=== PATIENT | male | born 1935 | race Caucasian/White ===

== ENCOUNTER 2018-11-29 08:45 | Emergency (ER) | payer MEDICARE, OTHER ==
[2018-11-29] MEDS ORDERED: HYDROcodone/APAP 7.5-325MG 1 EACH TAB PO ONE (09:29)
[2018-11-29] MEDS ORDERED: SODIUM CHLORIDE 0.9% 500 ML 500 ML IV ONE (09:29)
--- NOTE | 2018-11-29 09:46 | ED ---
General Adult HPI - General Chief complaint: Recheck/Abnormal Lab/Rx Stated complaint: RT FOOT AND LEFT ELBOW PAIN, POSS MED REACTION Time Seen by Provider: 11/29/18 09:15 Source: patient, RN notes reviewed Mode of arrival: wheelchair Limitations: no limitations - History of Present Illness Initial comments: This a 83-year-old male presents emergency Department chief complaint of left elbow, right foot pain. Patient states she's having worsening pain in his right for last couple days but states overnight he has severe sharp sudden onset of pain to his left elbow after extending it. Patient states that he cannot fully extend his left elbow now. Patient states it is swollen. Patient states is no swelling to the lateral portion of his right foot along with some mild redness. He hasn't home diagnoses of gout other suspicious of this. Patient denies any fevers or chills no headache no dizziness no chest pain or shortness of breath. - Related Data Home Medications Medication Instructions Recorded Confirmed Aspirin EC [Ecotrin Low Dose] 81 mg PO DAILY 11/29/18 11/29/18 Cholecalciferol [Vitamin D3] 1,000 unit PO DAILY 11/29/18 11/29/18 HYDROcodone/APAP 5-325MG [[place] 1 tab PO TID PRN 11/29/18 11/29/18 5-325] Hydrochlorothiazide [Hydrodiuril] 12.5 mg PO DAILY 11/29/18 11/29/18 Loratadine [Claritin] 10 mg PO DAILY 11/29/18 11/29/18 Previous Rx's Medication Instructions Recorded Indomethacin [Indocin] 50 mg PO TID #30 capsule 11/29/18 Allergies Allergy/AdvReac Type Severity Reaction Status Date / Time No Known Allergies Allergy Verified 11/29/18 09:57 Review of Systems ROS Statement: Those systems with pertinent positive or pertinent negative responses have been documented in the HPI. ROS Other: All systems not noted in ROS Statement are negative. Past Medical History Past Medical History: Hypertension Additional Past Medical History / Comment(s): Borderline type 2 diabetic History of Any Multi-Drug Resistant Organisms: None Reported Past Surgical History: Orthopedic Surgery Past Psychological History: No Psychological Hx Reported Smoking Status: Former smoker Past Alcohol Use History: Rare Past Drug Use History: None Reported General Exam Limitations: no limitations General appearance: alert, in no apparent distress Head exam: Present: atraumatic, normocephalic, normal inspection Eye exam: Present: normal appearance, PERRL, EOMI. Absent: scleral icterus, conjunctival injection, periorbital swelling ENT exam: Present: normal exam, normal oropharynx, mucous membranes moist Neck exam: Present: normal inspection. Absent: tenderness, meningismus, lymphadenopathy Respiratory exam: Present: normal lung sounds bilaterally. Absent: respiratory distress, wheezes, rales, rhonchi, stridor Cardiovascular Exam: Present: regular rate, normal rhythm, normal heart sounds. Absent: systolic murmur, diastolic murmur, rubs, gallop, clicks Extremities exam: Present: other (Foot there is mild erythema, tenderness with palpation the lateral portion, left elbow pain with range of motion limited range of motion neurovascular intact no erythema to the left) Skin exam: Present: warm, dry, intact, normal color. Absent: rash Course Vital Signs 11/29/18 09:02 Temperature 98.6 F Pulse Rate 75 Respiratory 16 Rate Blood Pressure 149/70 O2 Sat by Pulse 98 Oximetry Medical Decision Making - Medical Decision Making 83-year-old male presented for right foot pain, left elbow pain. Patient symptoms are consistent with gout. Patient's uric acid is elevated. Patient be given a dose of steroids and emergency Department discharge on indomethacin. Patient follow-up with PCP return parameters were discussed. - Lab Data Result diagrams: 11/29/18 10:15 11/29/18 10:15 Lab Results 11/29/18 11/29/18 Range/Units 10:15 10:15 WBC 10.2 (3.8-10.6) k/uL RBC 5.61 (4.30-5.90) m/uL Hgb 16.6 (13.0-17.5) gm/dL Hct 47.6 (39.0-53.0) % MCV 84.9 (80.0-100.0) fL MCH 29.5 (25.0-35.0) pg MCHC 34.8 (31.0-37.0) g/dL RDW 14.5 (11.5-15.5) % Plt Count 197 (150-450) k/uL Neutrophils % 83 % Lymphocytes % 9 % Monocytes % 6 % Eosinophils % 1 % Basophils % 0 % Neutrophils # 8.4 H (1.3-7.7) k/uL Lymphocytes # 0.9 L (1.0-4.8) k/uL Monocytes # 0.6 (0-1.0) k/uL Eosinophils # 0.1 (0-0.7) k/uL Basophils # 0.0 (0-0.2) k/uL Sodium 138 (137-145) mmol/L Potassium 4.1 (3.5-5.1) mmol/L Chloride 102 (98-107) mmol/L Carbon Dioxide 24 (22-30) mmol/L Anion Gap 12 mmol/L BUN 27 H (9-20) mg/dL Creatinine 1.18 (0.66-1.25) mg/dL Est GFR (CKD-EPI)AfAm 65 (>60 ml/min/1.73 sqM) Est GFR (CKD-EPI)NonAf 56 (>60 ml/min/1.73 sqM) Glucose 137 H (74-99) mg/dL Uric Acid 10.1 H (3.5-8.5) mg/dL Calcium 9.5 (8.4-10.2) mg/dL Total Bilirubin 1.4 H (0.2-1.3) mg/dL AST 26 (17-59) U/L ALT 28 (21-72) U/L Alkaline Phosphatase 137 H (38-126) U/L C-Reactive Protein 59.5 H (<10.0) mg/L Total Protein 7.6 (6.3-8.2) g/dL Albumin 4.3 (3.5-5.0) g/dL Disposition Clinical Impression: Gout Disposition: HOME SELF-CARE Condition: Stable Instructions (If sedation given, give patient instructions): Gout (ED), Low Purine Diet (ED) Additional Instructions: Please return to the Emergency Department if symptoms worsen or any other concerns. Prescriptions: Indomethacin [Indocin] 50 mg PO TID #30 capsule Is patient prescribed a controlled substance at d/c from ED?: No Referrals: [facility],Clinic [Primary Care Provider] - 1-2 days Time of Disposition: 11:18
[2018-11-29 10:32] LABS: Basophils % (A) 0 %; Eosinophils # (A) 0.1 k/uL (0-0.7); Eosinophils % (A) 1 %; HCT 47.6 % (39.0-53.0); HGB 16.6 gm/dL (13.0-17.5); Lymphocytes # (A) 0.9 k/uL (1.0-4.8); Lymphocytes % (A) 9 %; MCH 29.5 pg (25.0-35.0); MCHC 34.8 g/dL (31.0-37.0); MCV 84.9 fL (80.0-100.0); Mean Platelet Volume 7.1; Monocytes # (A) 0.6 k/uL (0-1.0); Monocytes % (A) 6 %; Neutrophils # (A) 8.4 k/uL (1.3-7.7); Neutrophils % (A) 83 %; Platelet Count 197 k/uL (150-450); RBC 5.61 m/uL (4.30-5.90); RDW 14.5 % (11.5-15.5); WBC 10.2 k/uL (3.8-10.6)
[2018-11-29 10:50] LABS: Albumin 4.3 g/dL (3.5-5.0); C Reactive Protein 59.5 mg/L (<10.0); Calcium 9.5 mg/dL (8.4-10.2); Potassium 4.1 mmol/L (3.5-5.1); Total Bilirubin 1.4 mg/dL (0.2-1.3); Total Protein 7.6 g/dL (6.3-8.2); Uric Acid 10.1 mg/dL (3.5-8.5)
--- NOTE | 2018-11-29 10:55 | XR ---
EXAMINATION TYPE: XR foot complete RT DATE OF EXAM: 11/29/2018 COMPARISON: NONE HISTORY: Pain TECHNIQUE: Three views are submitted. FINDINGS: The osseous structures are intact. Arthropathy of the first MTP joint. Hypertrophic spurring at the b ase of the fifth metatarsal. Large calcaneal spurs noted. Metallic clips seen within the soft tissues adjacent to the fibula correlate clinically. IMPRESSION: 1. No acute fracture or dislocation. If symptoms persist, follow-up exam in 7 to 10 days could be ob tained. 2. Arthropathy.
--- NOTE | 2018-11-29 10:56 | XR ---
EXAMINATION TYPE: XR elbow complete LT DATE OF EXAM: 11/29/2018 COMPARISON: NONE HISTORY: Pain FINDINGS: Three views of the elbow demonstrate a pathologic joint effusion. Displacement of anterior fat pad an d a posterior fat-pad both identified. Olecranon spur noted. No definite fracture line. Hypertrophic changes involving the joint space seen. IMPRESSION: 1. Pathologic joint effusion can be associated with occult fracture, inflammatory arthropathy, althou gh, infectious etiology not entirely excluded.
[2018-11-29] MEDS ORDERED: methylPREDNISolone SOD SUCCI 125 MG/2 ML VIAL IV STA ×2 (11:16→11:31)
[2018-11-29 12:32] VITALS: BP 126/61; PULSE 74; RESP 18; TEMP 97.6
== END 2018-11-29 12:17 | disposition home or self-care (01) ==
LOC: EC 08:45
DX: M10.9 Gout, unspecified (principal); I10 Essential (primary) hypertension; Z87.891 Personal history of nicotine dependence; Z79.82 Long term (current) use of aspirin; Z79.899 Other long term (current) drug therapy
CPT/HCPCS: 36415; 80053; 84550; 85025; 86140; 96374; 99283

== ENCOUNTER 2018-12-09 09:24 | Inpatient (IN) | payer MEDICARE ==
[2018-12-09] MEDS ORDERED: NITROGLYCERIN SL TABS 0.4 MG TAB SUBLINGUAL STA (09:29)
[2018-12-09] MEDS ORDERED: ATORVASTATIN 80 MG TAB PO STA (09:32)
[2018-12-09] MEDS ORDERED: NITROGLYCERIN OINT 1 INCH/GM PACKET TOPICAL STA (09:32)
[2018-12-09 09:42] LABS: Basophils % (A) 0 %; Eosinophils # (A) 0.2 k/uL (0-0.7); Eosinophils % (A) 2 %; HCT 49.5 % (39.0-53.0); HGB 16.2 gm/dL (13.0-17.5); Lymphocytes # (A) 1.6 k/uL (1.0-4.8); Lymphocytes % (A) 18 %; MCH 28.8 pg (25.0-35.0); MCHC 32.7 g/dL (31.0-37.0); MCV 88.2 fL (80.0-100.0); Mean Platelet Volume 6.8; Monocytes # (A) 0.4 k/uL (0-1.0); Monocytes % (A) 5 %; Neutrophils # (A) 6.2 k/uL (1.3-7.7); Neutrophils % (A) 73 %; Platelet Count 215 k/uL (150-450); RBC 5.61 m/uL (4.30-5.90); RDW 13.2 % (11.5-15.5); WBC 8.5 k/uL (3.8-10.6)
--- NOTE | 2018-12-09 09:50 | ED ---
Chest Pain HPI - General Chief Complaint: Shortness of Breath Stated Complaint: CHEST PAIN Time Seen by Provider: 12/09/18 09:24 Source: patient, EMS, RN notes reviewed Mode of arrival: EMS Limitations: no limitations - History of Present Illness Initial Comments: This is a 83-year-old male with a necessity benign past medical history no prior history of heart disease he is a former smoker who quit 20 years ago who states he had the onset about one half hours prior to calling EMS of throat pain he states was burning in nature severe nonradiating he did have some sweats with it he states no overt shortness of breath no dizziness palpitations fevers chills nausea vomiting or other symptoms. He did take 81 mg of aspirin initially. He was given 3 additional aspirin by paramedics in route. He states this is not changed at all. Initially he also did not complain of any chest pain en route. No other modifying factors. EKG was transmitted by EMS that show evidence of a left bundle branch block with some evidence of ST elevation in lead 3. MD Complaint: other - Related Data Home Medications Medication Instructions Recorded Confirmed Aspirin EC [Ecotrin Low Dose] 81 mg PO DAILY 11/29/18 11/29/18 Cholecalciferol [Vitamin D3] 1,000 unit PO DAILY 11/29/18 11/29/18 HYDROcodone/APAP 5-325MG [[place] 1 tab PO TID PRN 11/29/18 11/29/18 5-325] Hydrochlorothiazide [Hydrodiuril] 12.5 mg PO DAILY 11/29/18 11/29/18 Loratadine [Claritin] 10 mg PO DAILY 11/29/18 11/29/18 Previous Rx's Medication Instructions Recorded Indomethacin [Indocin] 50 mg PO TID #30 capsule 11/29/18 Allergies Allergy/AdvReac Type Severity Reaction Status Date / Time No Known Allergies Allergy Verified 11/29/18 09:57 Review of Systems ROS Statement: Those systems with pertinent positive or pertinent negative responses have been documented in the HPI. ROS Other: All systems not noted in ROS Statement are negative. EKG Findings - EKG Results: EKG: interpreted by RITA (EKG the time of admission showed a sinus rhythm of 81. Interval 180 QRS duration 148 QT since QTC 44/469 evidence of a left bundle- branch block pattern with some evidence of ST elevation in lead 3. This is compared with the EKG submitted by EMS which does correlate.) Past Medical History Past Medical History: Hypertension Additional Past Medical History / Comment(s): Borderline type 2 diabetic History of Any Multi-Drug Resistant Organisms: None Reported Past Surgical History: Orthopedic Surgery Past Psychological History: No Psychological Hx Reported Smoking Status: Former smoker Past Alcohol Use History: Rare Past Drug Use History: None Reported General Exam - General Exam Comments Initial Comments: This is a well-developed well-nourished awake alert oriented 3 male Limitations: no limitations General appearance: alert, anxious, in distress Head exam: Present: atraumatic, normocephalic, normal inspection Eye exam: Present: normal appearance, PERRL, EOMI. Absent: scleral icterus, conjunctival injection, periorbital swelling ENT exam: Present: normal exam, mucous membranes moist Neck exam: Present: normal inspection. Absent: tenderness, meningismus, lymphadenopathy Respiratory exam: Present: wheezes, decreased breath sounds (Decreased breath sounds with expiratory wheezes scattered throughout were noted). Absent: respiratory distress, rales, rhonchi, stridor Cardiovascular Exam: Present: regular rate, normal rhythm, normal heart sounds. Absent: systolic murmur, diastolic murmur, rubs, gallop, clicks GI/Abdominal exam: Present: soft, normal bowel sounds. Absent: distended, tenderness, guarding, rebound, rigid Extremities exam: Present: normal inspection, full ROM, normal capillary refill. Absent: tenderness, pedal edema, joint swelling, calf tenderness Back exam: Present: normal inspection Neurological exam: Present: alert, oriented X3, CN II-XII intact Psychiatric exam: Present: normal affect, anxious Skin exam: Present: warm, dry, intact, normal color. Absent: rash Course Vital Signs 12/09/18 12/09/18 09:29 09:40 Temperature 97.7 F Pulse Rate 89 85 Respiratory 18 18 Rate Blood Pressure 180/112 172/106 O2 Sat by Pulse 99 94 L Oximetry - Reevaluation(s) Reevaluation #1: 12/09/18 09:57 Patient did have nitroglycerin ordered as well as Lipitor. Dr. Ramirez from cardiology to come the emergency department. A STEMI alert was called. Efforts prior to the patient's arrival were made to access any old EKGs none were available in the hospital computer system at the [facility] in [place] or cardiology associates. Reevaluation #2: 12/09/18 09:58 Also of note I did discuss the case initial findings with paramedics and brought the patient. Reevaluation #3: 12/09/18 09:59 Cardiac monitoring: Patient did present with complaints of chest pain dysrhythmia was of concern. No PVCs or PACs are noted on the monitor. Heart rate was 81 on the heart monitor Chest Pain MDM - MDM I did discuss case with Dr. Lozada with the patient will be admitted to. Patient was taken the [employer] [facility] [employer] [facility]. X-ray results revealed increased interstitial markings and evidence of COPD. Critical Care Time Critical Care Time: Yes Critical Care Time: 30 minutes of critical care time which includes the initial encounter with history physical lab orders and x-rays. Several reevaluation the patient while he was in the department. Discussion with cardiology as well as internal medicine. Discussed with paramedics who brought the patient. Review of any limited charting and documentation of the above. Disposition Clinical Impression: Acute KS, inferior wall, Bundle branch block, left, Acute coronary syndrome Disposition: ADMITTED IP TO THIS HOSP Condition: Serious
--- NOTE | 2018-12-09 09:54 | XR ---
EXAMINATION TYPE: XR chest 1V portable DATE OF EXAM: 12/09/2018 COMPARISON: NONE HISTORY: Chest pain TECHNIQUE: Single frontal view of the chest is obtained. FINDINGS: Diffuse interstitial pattern. Arthropathy of the shoulders. No pneumothorax. No pleural ef fusion. Atherosclerotic change aorta. Underlying COPD noted. IMPRESSION: COPD with diffuse interstitial pattern and bilateral infiltrate. Correlate for CHF other martines consider pneumonia.
[2018-12-09] MEDS ORDERED: SODIUM CHLORIDE 0.9% 1,000 ML IV ONE (09:55)
[2018-12-09] MEDS ORDERED: IV FLUID CONTINUATION 1,000 ML IV ONE (09:57)
[2018-12-09] MEDS ORDERED: fentaNYL (PF) 50 MCG/ML 2 ML AMP IVP ONE (10:01)
[2018-12-09] MEDS ORDERED: LIDOCAINE 1% INJ 10MG/ML (20 ML MDV) SQ ONE (10:02)
--- NOTE | 2018-12-09 10:02 | P.CRDCN ---
History of Present Illness History of present illness: This is Dr. Ramirez dictating a consult on this patient The patient was interviewed and examined by me IMPRESSION / ASSESSMENT: Acute inferior wall OR with ST elevation Symptoms began this morning around 7:30 comprising of a burning discomfort in the throat Underlying left bundle branch block pattern Hypertension PLAN: Aspirin statins Nitropaste anticoagulation and urgent transfer to the [facility] for coronary intervention Discussed Dr. Tripp Discussed with the patient HPI Patient presented to the hospital to the emergency room complaining of a burning discomfort in the throat. He appears short of breath and in distress. Blood pressure 180 112 and 170 206 mmHg Associated sweating No other symptoms former smoker quit 20 years back ROS: No fever chills or rigors, no cough, phlegm or expectoration, no nausea, vomiting or diarrhea, no hematuria, dysuria, no musculoskeletal complaints, no strokes or seizures, no skin lesions. EXAMINATION: Elevated blood pressure afebrile normal heart rates Breath sounds are reduced bilaterally but there are no rhonchi no crackles Heart sounds S1 and S2 are soft no murmurs or gallop. Abdomen soft Extremities warm no edema REVIEW OF LABS, ECG & MEDICAL DATA Hemoglobin 16.2 Platelets 215,000 Twelve-lead ECG shows a left bundle branch block pattern with ST elevation inferiorly Past Medical History Past Medical History: Hypertension Additional Past Medical History / Comment(s): Borderline type 2 diabetic History of Any Multi-Drug Resistant Organisms: None Reported Past Surgical History: Orthopedic Surgery Past Psychological History: No Psychological Hx Reported Smoking Status: Former smoker Past Alcohol Use History: Rare Past Drug Use History: None Reported Medications and Allergies Home Medications Medication Instructions Recorded Confirmed Type Aspirin EC [Ecotrin Low Dose] 81 mg PO DAILY 11/29/18 11/29/18 History Cholecalciferol [Vitamin D3] 1,000 unit PO DAILY 11/29/18 11/29/18 History HYDROcodone/APAP 5-325MG [[place] 1 tab PO TID PRN 11/29/18 11/29/18 History 5-325] Hydrochlorothiazide [Hydrodiuril] 12.5 mg PO DAILY 11/29/18 11/29/18 History Loratadine [Claritin] 10 mg PO DAILY 11/29/18 11/29/18 History RX: Indomethacin [Indocin] 50 mg PO TID #30 capsule 11/29/18 Rx Allergies Allergy/AdvReac Type Severity Reaction Status Date / Time No Known Allergies Allergy Verified 11/29/18 09:57 Physical Exam Vitals: Vital Signs Temp Pulse Resp BP Pulse Ox 12/09/18 09:40 85 18 172/106 94 L 12/09/18 09:29 97.7 F 89 18 180/112 99 Intake and Output 12/08/18 12/09/18 12/09/18 22:59 06:59 14:59 Other: Weight 92.986 kg Results 12/09/18 09:30 CBC 12/09/18 Range/Units 09:30 WBC 8.5 (3.8-10.6) k/uL RBC 5.61 (4.30-5.90) m/uL Hgb 16.2 (13.0-17.5) gm/dL Hct 49.5 (39.0-53.0) % Plt Count 215 (150-450) k/uL Intake and Output 12/08/18 12/09/18 12/09/18 22:59 06:59 14:59 Other: Weight 92.986 kg Patient Weight 12/10/18 06:59 Weight 92.986 kg 12/09/18 09:30
[2018-12-09 10:11] LABS: Albumin 4.3 g/dL (3.5-5.0); Potassium 4.7 mmol/L (3.5-5.1); Total Bilirubin 0.8 mg/dL (0.2-1.3); Total Protein 7.7 g/dL (6.3-8.2)
[2018-12-09 10:13] LABS: INR 0.9 (<1.2); Prothrombin Time 9.7 sec (9.0-12.0)
[2018-12-09] MEDS ORDERED: BIVALIRUDIN 250 MG in SODIUM CHLORIDE 0.9% 50 ML IV ONE ×2 (10:13→10:40)
[2018-12-09] MEDS ORDERED: BIVALIRUDIN BOLUS 250 MG/50 ML IV ONE ×2 (10:13)
[2018-12-09] MEDS ORDERED: TICAGRELOR 90 MG TAB PO ONE (10:15)
[2018-12-09 10:26] LABS: Partial Thromboplastin Time 19.7 sec (22.0-30.0)
[2018-12-09 10:29] LABS: D-Dimer 1.47 mg/L FEU (<0.60)
[2018-12-09] MEDS ORDERED: FUROSEMIDE 10 MG/ML 4 ML VIAL IVP ONE (10:31)
[2018-12-09] MEDS ORDERED: IOPAMIDOL-370 100ML BTL INJ ONE ×2 (10:54→11:09)
[2018-12-09] MEDS ORDERED: ATROPINE SULFATE 0.1 MG/ML 10ML SYRINGE IV PRN (11:26)
[2018-12-09] MEDS ORDERED: ZOLPIDEM 5 MG TAB PO PRN (11:26)
[2018-12-09] MEDS ORDERED: MAG HYDROX/AL HYDROX/SIMETH 30 ML CUP PO PRN (11:26)
[2018-12-09] MEDS ORDERED: RX INFO: IV CONTRAST WAS GIVEN 1 EACH MISC MISCELLANE PRN (11:26)
[2018-12-09] MEDS ORDERED: NITROGLYCERIN SL TABS 0.4 MG TAB SUBLINGUAL PRN (11:26)
[2018-12-09] MEDS ORDERED: SODIUM CHLORIDE 0.9% 1,000 ML IV SCH (11:30)
--- NOTE | 2018-12-09 11:38 | CC ---
CARDIAC CATHETERIZATION REPORT Mr. Tan is an 83-year-old male with known history of hypertension who presented to the emergency room with severe throat discomfort. He had an EKG that showed left bundle branch block of unknown duration. He was evaluated by Dr. Ramirez and because of his finding and his presentation, recommendation made regarding cardiac catheterization, the procedures risks and complications were discussed with the patient who is in full understanding and agreement. PROCEDURE: The patient was brought to [facility] in a fasting semi-sedated state after receiving fentanyl and Benadryl and achieving moderate conscious sedated state. Using Xylocaine anesthesia and Seldinger technique, a 6-Maltese sheath was introduced in the right femoral artery. Selective right and left coronary angiography were performed using 6- Maltese 4 bend right and left Peggy catheter. Multiple views of the coronary artery including hemiaxial views were obtained. Following that the angioplasty and stenting were performed. Following that, 6-Maltese tight pigtail catheter was introduced in the left ventricle and pressures were calculated. Following that, catheter and sheath were removed. Hemostasis was obtained with deployment of TR band. There was no immediate complication. Patient is returned to his room in stable condition. FINDINGS: FLUOROSCOPY: There is calcification involving all the coronary arteries. LEFT MAIN: This is a large-sized vessel, bifurcating into left circumflex, left anterior descending artery. The left main coronary artery has a 30% to 40% plaque in the distal segment. The rest of the vessel has no high-grade stenosis. LEFT ANTERIOR DESCENDING ARTERY: This vessel gives rise to 3 diagonal branches of moderate caliber. The vessel tapers down in distal third. The LAD has diffuse intimal disease up to 30%-40% without any critical stenosis. LEFT CIRCUMFLEX: This is a nondominant vessel, giving rise to two obtuse marginal branches. The second one is small in caliber, the takeoff of the second obtuse marginal branch has an 80% to 90% stenosis. The vessel beyond that is small in caliber. RIGHT CORONARY ARTERY: This is a large dominant vessel bifurcating distally PDA and posterolateral segment branches. The right coronary artery in the mid segment has a very tortuous and has a 70% stenosis. There is another 80%-90% stenosis in the distal segment and the takeoff of the right PDA has a 99% stenosis. The rest of the vessel has intimal disease without any evidence of high-grade stenosis. LEFT VENTRICULOGRAM: Left ventriculogram is not performed. HEMODYNAMICS: There was no gradient across the aortic valve. The left ventricular end-diastolic pressure was 12-16 mmHg. CONCLUSION: 1. Calcified coronary arteries. 2. Significant disease in a mid and distal RCA and the right PDA. 3. Mild disease in the distal left circumflex. 4. Significant disease in the second obtuse marginal branch. 5. Mild disease in the LAD. RECOMMENDATION: In view of finding anatomy, I recommend proceeding with angioplasty and stenting. The procedures, risks and complication were discussed with the patient who is in full understanding and agreement. MMODL / IJN: [id number] /
--- NOTE | 2018-12-09 11:47 | PTCA ---
PERCUTANEOUSTRANS CORORONARY ANGIOGRAPHY Mr. Tan is an 83-year-old male who presented with symptoms of throat discomfort, an EKG showed the left bundle branch block of unknown duration. After evaluation by Dr. Ramirez, he underwent cardiac catheterization, was found to have significant stenosis involving the right coronary artery in 3 different areas. In view of that, recommendation was made regarding angioplasty and stenting. The procedures, risks and complication were discussed with the patient who is in full understanding and agreement. PROCEDURE: A 6-Bulgarian FR4 guiding catheter was introduced into the system. After cannulating the right coronary ostium, attempt to advance the balanced medium weight J-wire to the distal vessel were unsuccessful because of the tortuosity. At that point, the wire was removed and a 0.014 whisper J-wire was advanced, positioned distally, then another 0.014 balanced medium weight J-wire was advanced next to the first one in a abbie fashion and positioned distally. Following that, a 2.5 x 12 mm Trek balloon was advanced and 2 inflation at maximum of 10 atmospheres were done. Following that, the balloon was removed. Following that, a 3.5 x 12 mm Xience Olinda stent was deployed in the distal segment, post dilated at 16 atmospheres. After removing the balloon, another 3.5 x 12 mm Xience Olinda stent was deployed proximal to the first one and post- dilated at 16 atmospheres. Following that and after removing the balloon, a 3.0 x 8 mm Xience Olinda stent was deployed at the ostium of the right PDA and post-dilated at 14 atmospheres. Following that, the balloon was removed and another 3.0 x 8 mm Xience Olinda stent was deployed distal to the last one and post dilated at 14 atmospheres. Following that, the balloon was removed and a 3.5 x 18 mm Xience Olinda stent was deployed in the mid segment and postdilated to 16 atmospheres. After the last inflation, after appropriate wait, the balloon and the guidewire were withdrawn back in the guiding catheter. Images were obtained and repeated. Those images revealed stable successful stenting. At that point, the guiding catheter, the guiding catheter, the balloon and the guidewire were removed and subsequently a left ventricular end- diastolic pressure was measured. Following that, catheter and sheaths were removed. Hemostasis was obtained with deployment of an Angio-Seal. There was no immediate complication. Patient is returned to his room in stable condition. RESULTS: 1. Successful stenting of the distal right coronary artery with reduction of stenosis from 90% to 0%. 2. Successful stenting of the right PDA with reduction of stenosis from 99% to 0%. 3. Successful stenting of the mid right coronary artery with reduction of stenosis from 70% to 0%. RECOMMENDATION: Patient will be continued on aspirin, Brilinta, beta ron, ALTAGRACIA inhibitor and statin. The importance of dual antiplatelet treatment were discussed with the patient his family who are in full understanding and agreement. Duration of procedure is 65 minutes. MMODL / IJN: [id number] /
[2018-12-09] MEDS: ACETAMINOPHEN TAB 325 MG TAB ONE ×2 (12:09→17:38)
--- NOTE | 2018-12-09 15:16 | P.HPIM ---
History of Present Illness 83-year-old pleasant gentleman came in with compensative chest pain pressure- like sensation started today morning along with shortness of breath diaphoresis found to have ST elevation myocardial infarction patient subsequently underwent cardiac catheterization and the multiple stents to circumflex. His present which is pain-free patient is on dual antiplatelet therapy beta ron. Patient has history of hypertension used to smoke 18-20 years ago. Patient presently doesn't have any shortness of breath. Patient had left bundle-branch block which is new. Review of Systems REVIEW OF SYSTEMS: CONSTITUTIONAL: No fever, no malaise, no fatigue. HEENT: No recent visual problems or hearing problems. Denied any sore throat. CARDIOVASCULAR: o No orthopnea, PND, no palpitations, no syncope. PULMONARY: no cough, no hemoptysis. GASTROINTESTINAL: No diarrhea, no nausea, no vomiting, no abdominal pain. NEUROLOGICAL: No headaches, no weakness, no numbness. HEMATOLOGICAL: Denies any bleeding or petechiae. GENITOURINARY: Denies any burning micturition, frequency, or urgency. MUSCULOSKELETAL/RHEUMATOLOGICAL: Denies any joint pain, swelling, or any muscle pain. ENDOCRINE: Denies any polyuria or polydipsia. The rest of the 14-point review of systems is negative. Past Medical History Past Medical History: Hypertension Additional Past Medical History / Comment(s): Borderline type 2 diabetic History of Any Multi-Drug Resistant Organisms: None Reported Past Surgical History: Orthopedic Surgery Past Psychological History: No Psychological Hx Reported Smoking Status: Former smoker Past Alcohol Use History: Rare Past Drug Use History: None Reported Medications and Allergies Home Medications Medication Instructions Recorded Confirmed Type Aspirin EC [Ecotrin Low Dose] 81 mg PO DAILY 11/29/18 12/09/18 History Cholecalciferol [Vitamin D3] 1,000 unit PO DAILY 11/29/18 12/09/18 History HYDROcodone/APAP 5-325MG [Equality 1 tab PO TID PRN 11/29/18 12/09/18 History 5-325] Hydrochlorothiazide [Hydrodiuril] 12.5 mg PO DAILY 11/29/18 12/09/18 History Loratadine [Claritin] 10 mg PO DAILY 11/29/18 12/09/18 History Carboxymethylcellulose Sodium 1 drop BOTH EYES TID 12/09/18 12/09/18 History [Refresh Tears] Allergies Allergy/AdvReac Type Severity Reaction Status Date / Time No Known Allergies Allergy Verified 12/09/18 10:24 Physical Exam Vitals: Vital Signs Temp Pulse Pulse Resp BP BP Pulse Ox 12/09/18 14:51 96 16 96 12/09/18 13:25 84 18 139/91 95 12/09/18 12:55 89 18 156/92 97 12/09/18 12:25 85 16 151/92 98 12/09/18 12:11 90 18 162/82 95 12/09/18 11:50 92 18 160/83 90 L 12/09/18 11:35 95 18 166/87 90 L 12/09/18 09:40 85 18 172/106 94 L 12/09/18 09:29 97.7 F 89 18 180/112 99 Intake and Output 12/09/18 12/09/18 12/09/18 06:59 14:59 22:59 Intake Total 654 Output Total 1125 Balance -471 Intake: IV 654 Sodium Chloride 0.9% 1, 0 000 ml @ 100 mls/hr IV . Q10H [facility] Rx#:[id number] Output: Urine 1125 Other: Weight 92.986 kg PHYSICAL EXAMINATION: GENERAL: The patient is alert and oriented x3, not in any acute distress. Well developed, well nourished. HEENT: Pupils are round and equally reacting to light. EOMI. No scleral icterus. No conjunctival pallor. Normocephalic, atraumatic. No pharyngeal erythema. No thyromegaly. CARDIOVASCULAR: S1 and S2 present. No murmurs, rubs, or gallops. PULMONARY: Chest is clear to auscultation, no wheezing or crackles. ABDOMEN: Soft, nontender, nondistended, normoactive bowel sounds. No palpable organomegaly. MUSCULOSKELETAL: No joint swelling or deformity. EXTREMITIES: No cyanosis, clubbing, or pedal edema. NEUROLOGICAL: Gross neurological examination did not reveal any focal deficits. SKIN: No rashes. Results CBC & Chem 7: 12/09/18 09:30 12/09/18 09:30 Labs: Abnormal Lab Results - Last 24 Hours (Table) 12/09/18 12/09/18 12/09/18 Range/Units 09:30 09:30 09:30 APTT 19.7 L (22.0-30.0) sec D-Dimer 1.47 H (<0.60) mg/L FEU BUN 31 H (9-20) mg/dL Creatinine 1.59 H (0.66-1.25) mg/dL Glucose 177 H (74-99) mg/dL Troponin I 0.052 H* (0.000-0.034) ng/mL Assessment and Plan Plan: ST elevation myocardial infarction: Status post radical catheterization and stenting to circumflex. Continue with the dual antiplatelet therapy beta ron and statin. Repeat echocardiogram will be obtained -Hypertension -Hyperlipidemia.
[2018-12-09] MEDS ORDERED: amLODIPine 5 MG TAB PO STA (15:48)
[2018-12-09] MEDS ORDERED: METOPROLOL TARTRATE 25 MG TAB PO STA (15:48)
[2018-12-09 17:05] LABS: Glucose,Whole Blood 106 mg/dL (75-99)
--- NOTE | 2018-12-09 18:48 | ECHOF ---
Referral Reason:mi MEASUREMENTS -------- HEIGHT: 195.6 cm WEIGHT: 93.0 kg BP: 162/82 RVIDd: 2.8 cm (< 3.3) IVSd: 1.2 cm (0.6 - 1.1) LVIDd: 4.4 cm (3.9 - 5.3) LVPWd: 1.3 cm (0.6 - 1.1) IVSs: 1.6 cm LVIDs: 3.9 cm LVPWs: 1.5 cm LA Diam: 3.3 cm (2.7 - 3.8) LAESV Index (A-L): 23.55 ml/m Ao Diam: 2.7 cm (2.0 - 3.7) EPSS: 3.6 cm MV EF SLOPE: 145.31 mm/s (70 - 150) MV EXCURSION: 1.96 cm (> 18.000) FINDINGS -------- Sinus rhythm. This was a technically difficult study with suboptimal views. The left ventricular size is normal. There is mild concentric left ventricular hypertrophy. Overa ll left ventricular systolic function is moderate-severely impaired with, an EF between 30 - 35 %. Basal inferior LV wall motion is hypokinetic. Mid inferior LV wall motion is hypokinetic. Apica l inferior LV wall motion is hypokinetic. The right ventricle is normal in size. Normal LA size by volume 22+/-6 ml/m2. The right atrium was not well visualized. 5 ml of Lumason was utilized for enhancement of images. The aortic valve was not well visualized. The mitral valve leaflets are mildly thickened. Mild mitral annular calcification present. The tricuspid valve was not well visualized. The pulmonic valve was not well visualized. The aortic root size is normal. IVC Not well visulized. There is no pericardial effusion. CONCLUSIONS -------- 1. Sinus rhythm. 2. This was a technically difficult study with suboptimal views. 3. The left ventricular size is normal. 4. There is mild concentric left ventricular hypertrophy. 5. Overall left ventricular systolic function is moderate-severely impaired with, an EF between 30 - 35 %. 6. Basal inferior LV wall motion is hypokinetic. 7. Mid inferior LV wall motion is hypokinetic. 8. Apical inferior LV wall motion is hypokinetic. 9. The right ventricle is normal in size. 10. Normal LA size by volume 22+/-6 ml/m2. 11. The right atrium was not well visualized. 12. 5 ml of Lumason was utilized for enhancement of images. 13. The aortic valve was not well visualized. 14. The mitral valve leaflets are mildly thickened. 15. Mild mitral annular calcification present. 16. The tricuspid valve was not well visualized. 17. The pulmonic valve was not well visualized. 18. The aortic root size is normal. 19. IVC Not well visulized. 20. There is no pericardial effusion. [employer]CRE[employer] HOLE: VINCENT Ferreira
[2018-12-09] MEDS ORDERED: amLODIPine 5 MG TAB PO SCH (21:00)
[2018-12-09] MEDS: ATORVASTATIN 80 MG TAB PO SCH (22:06)
[2018-12-09] MEDS: METOPROLOL TARTRATE 25 MG TAB PO SCH (22:06)
[2018-12-09] MEDS: TICAGRELOR 90 MG TAB PO SCH (22:06)
[2018-12-09] MEDS: amLODIPine 5 MG TAB PO SCH (22:06)
[2018-12-10 05:04] LABS: Basophils % (A) 0 %; Eosinophils # (A) 0.2 k/uL (0-0.7); Eosinophils % (A) 2 %; HCT 48.9 % (39.0-53.0); HGB 15.9 gm/dL (13.0-17.5); Lymphocytes # (A) 1.3 k/uL (1.0-4.8); Lymphocytes % (A) 10 %; MCH 28.6 pg (25.0-35.0); MCHC 32.4 g/dL (31.0-37.0); MCV 88.4 fL (80.0-100.0); Mean Platelet Volume 6.5; Monocytes # (A) 0.6 k/uL (0-1.0); Monocytes % (A) 5 %; Neutrophils # (A) 11.5 k/uL (1.3-7.7); Neutrophils % (A) 83 %; Platelet Count 195 k/uL (150-450); RBC 5.54 m/uL (4.30-5.90); RDW 13.3 % (11.5-15.5); WBC 13.8 k/uL (3.8-10.6)
[2018-12-10 05:19] LABS: Calcium 9.1 mg/dL (8.4-10.2); Magnesium 2.1 mg/dL (1.6-2.3); Potassium 4.3 mmol/L (3.5-5.1)
--- NOTE | 2018-12-10 06:47 | XR ---
EXAMINATION TYPE: XR chest 1V portable DATE OF EXAM: 12/10/2018 HISTORY: shortness of breath with exertion. REFERENCE: Previous study dated 12/09/2018. FINDINGS: There is been a marked improvement in the degree of aeration of both lungs. The heart is no t enlarged. No significant pleural fluid is seen. IMPRESSION: MARKED IMPROVEMENT IN THE AERATION OF BOTH LUNGS.
[2018-12-10] MEDS: METOPROLOL TARTRATE 25 MG TAB PO SCH ×2 (08:21→20:07)
[2018-12-10] MEDS: TICAGRELOR 90 MG TAB PO SCH ×2 (08:21→20:07)
[2018-12-10] MEDS: amLODIPine 5 MG TAB PO SCH (08:21)
[2018-12-10] MEDS: ASPIRIN 81 MG PO SCH (08:21)
[2018-12-10] MEDS: LISINOPRIL 5 MG TAB PO SCH ×2 (09:17→20:07)
--- NOTE | 2018-12-10 09:53 | PN ---
PROGRESS NOTE FOLLOW-UP NOTE: Mr. Tan is an 83-year-old gentleman who is admitted to hospital with acute myocardial infarction, diagnosed with a left bundle branch block. He underwent emergent cardiac catheterization and stenting of the right coronary artery. This morning patient is doing well. Denies chest pain or difficulty in breathing. An echocardiogram shows moderate to severe LV dysfunction with an ejection fraction of 30% to 35% secondary to inferior wall myocardial infarction. Labs show that his peak troponin was 25.4. Creatinine is 1.1. Hemoglobin is 15.9. On exam, comfortable at rest. Vital signs are stable. Chest exam reveals good air entry bilaterally. Heart exam reveals first and second heart sounds. No gallop. Groin is free of bleeding, bruit, hematoma. Foot pulses are intact. ASSESSMENT: 1. Acute myocardial infarction, status post catheterization and angioplasty of right coronary artery. 2. Ischemic cardiomyopathy. PLAN: The patient is currently on aspirin, Lipitor, Zestril and Lopressor along with Brilinta. He is going to continue these medications. He can be transferred out of ICU later this afternoon and hopefully home on Wednesday. MMKING / DIANAN: [id number] /
[2018-12-10 13:57] VITALS: BMI 25.9
--- NOTE | 2018-12-10 15:42 | P.PN ---
Subjective -year-old pleasant gentleman was admitted for ST elevation microinfarction and patient went To catheterization and stenting of her circumflex disease multiple stents patient is clinically doing well his EF is 30-35% appears to be acute is not volume overloaded at this time patient was started on lisinopril as well along with dual antiplatelet therapy beta ron and statin. Patient's creatinine improved from a 1.59-1.1 Constitutional: Denied any fatigue denied any fever. Cardio vascular: denied any chest pain, palpitations Gastrointestinal denied any nausea vomiting Pulmonary: Denied any shortness of breath cough Neurologic denied any new focal deficits All inpatient medications were reviewed and appropriate changes in these medications as dictated in the interval history and assessment and plan. Objective - Vital Signs Vital signs: Vital Signs Temp 97.6 F 12/10/18 12:00 Pulse 60 12/10/18 15:00 Resp 16 12/10/18 15:00 BP 139/60 12/10/18 15:00 Pulse Ox 96 12/10/18 15:00 Intake & Output 12/09/18 12/10/18 12/10/18 18:59 06:59 18:59 Intake Total 1714 300 450 Output Total 1999 675 750 Balance -286 -375 -300 Weight 100 kg 99.3 kg 99.3 kg Intake: IV 1354 300 Sodium Chloride 0.9% 1, 700 300 000 ml @ 100 mls/hr IV . Q10H [facility] Rx#:[id number] Oral 360 450 Lipid 0 Sodium Chloride 0.9% 1, 0 000 ml @ 100 mls/hr IV . Q10H [facility] Rx#:[id number] Output: Urine 1999 675 750 Other: Voiding Method Urinal Urinal Urinal # Voids 0 1 - Exam PHYSICAL EXAMINATION: GENERAL: The patient is alert and oriented x3, not in any acute distress. Well developed, well nourished. HEENT: Pupils are round and equally reacting to light. EOMI. No scleral icterus. No conjunctival pallor. Normocephalic, atraumatic. No pharyngeal erythema. No thyromegaly. CARDIOVASCULAR: S1 and S2 present. No murmurs, rubs, or gallops. PULMONARY: Chest is clear to auscultation, no wheezing or crackles. ABDOMEN: Soft, nontender, nondistended, normoactive bowel sounds. No palpable organomegaly. MUSCULOSKELETAL: No joint swelling or deformity. EXTREMITIES: No cyanosis, clubbing, or pedal edema. NEUROLOGICAL: Gross neurological examination did not reveal any focal deficits. SKIN: No rashes. - Labs CBC & Chem 7: 12/10/18 04:49 12/10/18 04:49 Labs: Abnormal Lab Results - Last 24 Hours (Table) 12/09/18 12/09/18 12/09/18 Range/Units 15:51 17:01 20:45 WBC (3.8-10.6) k/uL Neutrophils # (1.3-7.7) k/uL BUN (9-20) mg/dL Glucose (74-99) mg/dL POC Glucose (mg/dL) 106 H (75-99) mg/dL Troponin I 16.100 H* 25.400 H* (0.000-0.034) ng/mL 12/10/18 12/10/18 Range/Units 04:49 04:49 WBC 13.8 H (3.8-10.6) k/uL Neutrophils # 11.5 H (1.3-7.7) k/uL BUN 26 H (9-20) mg/dL Glucose 135 H (74-99) mg/dL POC Glucose (mg/dL) (75-99) mg/dL Troponin I (0.000-0.034) ng/mL Assessment and Plan Plan: ST elevation myocardial infarction: Status post radical catheterization and stenting to circumflex. Continue with the dual antiplatelet therapy beta ron and statin. Echocardiogram showed decreased ejection fraction. Patient was started on lisinopril -Acute systolic dysfunction without pulmonary edema or acute exacerbation of CHF secondary to acute myocardial infarction this is expected to improve. 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 -Hypertension -Hyperlipidemia.
[2018-12-10] MEDS: ATORVASTATIN 80 MG TAB PO SCH (20:07)
[2018-12-11 07:02] LABS: Calcium 8.6 mg/dL (8.4-10.2); Potassium 3.8 mmol/L (3.5-5.1)
[2018-12-11] MEDS ORDERED: ALPRAZolam 0.25 MG TAB PO STA (08:54)
[2018-12-11] MEDS: ASPIRIN 81 MG PO SCH (09:37)
[2018-12-11] MEDS: TICAGRELOR 90 MG TAB PO SCH ×2 (09:37→20:47)
[2018-12-11] MEDS: METOPROLOL TARTRATE 25 MG TAB PO SCH ×2 (09:39→20:47)
--- NOTE | 2018-12-11 11:03 | P.PN ---
Subjective This is a pleasant 83-year-old male past medical history significant for hypertension, diabetes mellitus and is s/p acute myocardial infarction with stent placement to the distal and mid RCA as well as right PDA on December 09. He is seen and examined sitting up eating breakfast in no acute distress. He denies any symptoms of chest discomfort, shortness of breath, dizziness or palpitations. He states he has been up and ambulating around the room and in the halls. Currently maintained on aspirin 81 mg daily, atorvastatin 80 mg daily, lisinopril 5 mg twice a day, metoprolol 25 mg twice a day and to 90 mg twice a day. Blood pressure 103/76 heart rate 88 afebrile maintaining oxygen saturation on room air. Laboratory data reviewed, sodium 139, potassium 3.8, creatinine 1.28. Echocardiogram on admission reveals severely impaired left ventricular systolic function with ejection fraction 30-35%, basal inferior, mid inferior and apical inferior LV wall motion hypokinesia, mild MR noted. GENERAL: Well-appearing, well-nourished and in no acute distress. NECK: Supple without JVD or thyromegaly. LUNGS: Breath sounds clear to auscultation bilaterally. Respiration equal and unlabored. No wheezes, rales or rhonchi. HEART: Regular rate and rhythm without murmurs, rubs or gallops. S1 and S2 heard. EXTREMITIES: Normal range of motion, no edema. No clubbing or cyanosis. Peripheral pulses intact. ASSESSMENT Acute myocardial infarction status post catheterization and angioplasty Ischemic cardiomyopathy, ejection fraction 30-35%. Hypertension Dyslipidemia PLAN He is tolerating his current medical regimen. Repeat kidney function in the morning. We will continue to monitor and follow closely, possible discharge tomorrow if h e continues to progress positively. Nurse Practitioner note has been reviewed, I agree with a documented findings and plan of care. Patient was seen and examined. Objective - Vital Signs Vital signs: Vital Signs Temp 97.2 F L 12/11/18 04:00 Pulse 86 12/11/18 04:00 Resp 18 12/11/18 04:00 BP 106/58 12/11/18 04:00 Pulse Ox 94 L 12/11/18 04:00 Intake & Output 12/10/18 12/11/18 12/11/18 18:59 06:59 18:59 Intake Total 450 360 Output Total 1550 Balance -1100 360 Weight 99.3 kg 92.4 kg Intake: Oral 450 360 Output: Urine 1550 Other: Voiding Method Urinal Urinal # Voids 1 1 # Bowel Movements 1 - Labs CBC & Chem 7: 12/10/18 04:49 12/11/18 05:49 Labs: Abnormal Lab Results - Last 24 Hours (Table) 12/11/18 Range/Units 05:49 Chloride 110 H (98-107) mmol/L BUN 22 H (9-20) mg/dL Creatinine 1.28 H (0.66-1.25) mg/dL Glucose 124 H (74-99) mg/dL
[2018-12-11] MEDS: LISINOPRIL 5 MG TAB PO SCH ×2 (12:45→20:47)
--- NOTE | 2018-12-11 14:44 | P.PN ---
Subjective -year-old pleasant gentleman was admitted for ST elevation microinfarction and patient went To catheterization and stenting of her circumflex disease multiple stents patient is clinically doing well his EF is 30-35% appears to be acute is not volume overloaded at this time patient was started on lisinopril as well along with dual antiplatelet therapy beta ron and statin. Patient's creatinine improved from a 1.59-1.1. 12/11/2018 Patient has worsening of her serum creatinine to 1.4 from 1.1 and this is probably secondary to the lisinopril that was started yesterday for his heart failure. Hypotension probably is contributing to that as well as less probably this is secondary to contrast. Patient doesn't have any shortness of breath at this time. Cardiology is recommending monitoring one more night with repeat basic metabolic profile tomorrow. Constitutional: Denied any fatigue denied any fever. Cardio vascular: denied any chest pain, palpitations Gastrointestinal denied any nausea vomiting Pulmonary: Denied any shortness of breath cough Neurologic denied any new focal deficits All inpatient medications were reviewed and appropriate changes in these medications as dictated in the interval history and assessment and plan. Objective - Vital Signs Vital signs: Vital Signs Temp 96.5 F L 12/11/18 08:30 Pulse 88 12/11/18 08:30 Resp 18 12/11/18 08:30 BP 103/76 12/11/18 08:30 Pulse Ox 94 L 12/11/18 08:30 Intake & Output 12/10/18 12/11/18 12/11/18 18:59 06:59 18:59 Intake Total 450 360 Output Total 1550 Balance -1100 360 Weight 99.3 kg 92.4 kg Intake: Oral 450 360 Output: Urine 1550 Other: Voiding Method Urinal Urinal Urinal # Voids 1 1 # Bowel Movements 1 - Exam PHYSICAL EXAMINATION: GENERAL: The patient is alert and oriented x3, not in any acute distress. Well developed, well nourished. HEENT: Pupils are round and equally reacting to light. EOMI. No scleral icterus. No conjunctival pallor. Normocephalic, atraumatic. No pharyngeal erythema. No thyromegaly. CARDIOVASCULAR: S1 and S2 present. No murmurs, rubs, or gallops. PULMONARY: Chest is clear to auscultation, no wheezing or crackles. ABDOMEN: Soft, nontender, nondistended, normoactive bowel sounds. No palpable organomegaly. MUSCULOSKELETAL: No joint swelling or deformity. EXTREMITIES: No cyanosis, clubbing, or pedal edema. NEUROLOGICAL: Gross neurological examination did not reveal any focal deficits. SKIN: No rashes. - Labs CBC & Chem 7: 12/10/18 04:49 12/11/18 05:49 Labs: Abnormal Lab Results - Last 24 Hours (Table) 12/11/18 Range/Units 05:49 Chloride 110 H (98-107) mmol/L BUN 22 H (9-20) mg/dL Creatinine 1.28 H (0.66-1.25) mg/dL Glucose 124 H (74-99) mg/dL Assessment and Plan Plan: ST elevation myocardial infarction: Status post radical catheterization and stenting to circumflex. Continue with the dual antiplatelet therapy beta ron and statin. Echocardiogram showed decreased ejection fraction. Patient was started on lisinopril -Acute systolic dysfunction without pulmonary edema or acute exacerbation of CHF secondary to acute myocardial infarction this is expected to improve. Patient's ejection fraction is 30-35% Acute renal failure secondary to acute myocardial improved and it's bit worse now compared to yesterday which is probably secondary to hypotension and ALTAGRACIA inhibitor. 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 -Hypertension -Hyperlipidemia.
[2018-12-11] MEDS: ATORVASTATIN 80 MG TAB PO SCH (20:47)
[2018-12-11 21:21] VITALS: RESP 18
[2018-12-12 07:49] LABS: Calcium 8.6 mg/dL (8.4-10.2); Potassium 3.9 mmol/L (3.5-5.1)
[2018-12-12] MEDS: METOPROLOL TARTRATE 25 MG TAB PO SCH (08:09)
[2018-12-12] MEDS: LISINOPRIL 5 MG TAB PO SCH (08:09)
[2018-12-12] MEDS: TICAGRELOR 90 MG TAB PO SCH (08:09)
[2018-12-12] MEDS: ASPIRIN 81 MG PO SCH (08:09)
[2018-12-12] MEDS ORDERED: LISINOPRIL 5 MG TAB PO SCH (09:00)
--- NOTE | 2018-12-12 10:02 | P.PN ---
Subjective Progress Note Date: 12/12/18 This is a pleasant 83-year-old male past medical history significant for hypertension, diabetes mellitus and is s/p acute myocardial infarction with stent placement to the distal and mid RCA as well as right PDA on December 09. He is seen and examined sitting up eating breakfast in no acute distress. He denies any symptoms of chest discomfort, shortness of breath, dizziness or palpitations. He states he has been up and ambulating around the room and in the halls. Currently maintained on aspirin 81 mg daily, atorvastatin 80 mg daily, lisinopril 5 mg twice a day, metoprolol 25 mg twice a day and to 90 mg twice a day. At pressure this morning 132/60 with a heart rate in the 70s, 93% on room air. Sodium 139, potassium 3.9, BUN 27 and creatinine 1.3. Patient seen and examined this morning, feels well, denies any chest discomfort, no difficulty in breathing. He's been up ambulating without any difficulty. Objective - Vital Signs Vital signs: Vital Signs Temp 98.4 F 12/12/18 04:00 Pulse 70 12/12/18 04:00 Resp 18 12/12/18 04:00 BP 132/67 12/12/18 04:00 Pulse Ox 93 L 12/12/18 04:00 Intake & Output 12/11/18 12/12/18 12/12/18 18:59 06:59 18:59 Intake Total 360 360 Output Total 300 Balance 60 360 Weight 91.6 kg Intake: Oral 360 360 Output: Urine 300 Other: Voiding Method Urinal Urinal # Voids 2 1 # Bowel Movements 1 1 - Exam GENERAL: Well-appearing, well-nourished and in no acute distress. NECK: Supple without JVD or thyromegaly. LUNGS: Breath sounds clear to auscultation bilaterally. Respiration equal and unlabored. No wheezes, rales or rhonchi. HEART: Regular rate and rhythm without murmurs, rubs or gallops. S1 and S2 heard. EXTREMITIES: Normal range of motion, no edema. No clubbing or cyanosis. Peripheral pulses intact. - Labs CBC & Chem 7: 12/10/18 04:49 12/12/18 06:29 Labs: Abnormal Lab Results - Last 24 Hours (Table) 12/12/18 Range/Units 06:29 Chloride 110 H (98-107) mmol/L Carbon Dioxide 21 L (22-30) mmol/L BUN 27 H (9-20) mg/dL Creatinine 1.32 H (0.66-1.25) mg/dL Glucose 118 H (74-99) mg/dL Assessment and Plan Plan: Assessment and plan #[address] elevation myocardial infarction with successful stenting of the mid and distal right coronary artery as well as the right PDA #2 ischemic cardiomyopathy with documented ejection fraction of 30-35% #3 hyperlipidemia #4 hypertension Plan We will decrease the lisinopril to 5 mg by mouth daily today, check lytes BUN and creatinine on Wednesday. From our perspective he may be able to be discharged home today to follow-up with Dr. Ramirez in the office post discharge. Discharge medications include aspirin 81 mg daily, Lipitor 80 mg daily, lisinopril 5 mg daily, metoprolol 25 mg one tablet by mouth twice a day and Brilinta 90 mg by mouth twice a day along with sublingual nitroglycerin as needed for chest pain. DNP note has been reviewed, I agree with a documented findings and plan of care. Patient was seen and examined.
[2018-12-12 12:26] VITALS: BP 124/67; PULSE 60; TEMP 97.1
--- NOTE | 2018-12-12 13:24 | P.DS ---
Providers Date of admission: 12/09/18 09:35 Attending physician: Ty Lozada Consults: 12/09/18 11:26 Consult Physician Routine Consulting Provider: [facility] Consult Reason/Comments: Post Interventional patient Do you want consulting provider notified?: Already Contacted Primary care physician: [facility] Course: 83-year-old pleasant gentleman was admitted for ST elevation microinfarction and patient went To catheterization and stenting of her circumflex disease multiple stents patient is clinically doing well his EF is 30-35% appears to be acute is not volume overloaded at this time patient was started on lisinopril as well along with dual antiplatelet therapy beta ron and statin. Patient's creatinine improved from a 1.59-1.1. 12/11/2018 Patient has worsening of her serum creatinine to 1.4 from 1.1 and this is probably secondary to the lisinopril that was started yesterday for his heart failure. Hypotension probably is contributing to that as well as less probably this is secondary to contrast. Patient doesn't have any shortness of breath at this time. Cardiology is recommending monitoring one more night with repeat basic metabolic profile tomorrow. 12/12/2018 Patient's creatinine is around 1.5 fairly stable compared to yesterday but worse compared to couple days ago. Patient's lisinopril is being decreased is so I believe it will improve. Repeat basic metabolic profile will be obtained 3 days. Patient has not if things going on at home and will have to go home as his daughter is under hospice care PHYSICAL EXAMINATION: GENERAL: The patient is alert and oriented x3, not in any acute distress. Well developed, well nourished. HEENT: Pupils are round and equally reacting to light. EOMI. No scleral icterus. No conjunctival pallor. Normocephalic, atraumatic. No pharyngeal erythema. No thyromegaly. CARDIOVASCULAR: S1 and S2 present. No murmurs, rubs, or gallops. PULMONARY: Chest is clear to auscultation, no wheezing or crackles. ABDOMEN: Soft, nontender, nondistended, normoactive bowel sounds. No palpable organomegaly. MUSCULOSKELETAL: No joint swelling or deformity. EXTREMITIES: No cyanosis, clubbing, or pedal edema. NEUROLOGICAL: Gross neurological examination did not reveal any focal deficits. SKIN: No rashes. Assessment and Plan Plan: ST elevation myocardial infarction: Status post cardiac catheterization and stenting to circumflex. Continue with the dual antiplatelet therapy beta ron and statin. Echocardiogram showed decreased ejection fraction. Patient is on lisinopril -Acute systolic dysfunction without pulmonary edema or acute exacerbation of CHF secondary to acute myocardial infarction this is expected to improve. Patient's ejection fraction is 30-35% Acute renal failure secondary to acute myocardial myocardial infarction and lisinopril is contributing to his renal failure which is expected to improve as the dose of lisinopril is being cut down. Patient may have some hypertensive nephrosclerosis and stage II CKD -Hypertension -Hyperlipidemia. Patient Condition at Discharge: Serious Plan - Discharge Summary Discharge Rx Participant: No New Discharge Prescriptions: New Ticagrelor [Brilinta] 90 mg PO BID #60 tab Atorvastatin [Lipitor] 80 mg PO HS #30 tab Metoprolol Tartrate [Lopressor] 25 mg PO BID #60 tab Nitroglycerin Sl Tabs [Nitrostat] 0.4 mg SUBLINGUAL Q5M PRN #25 tab PRN Reason: Chest Pain Lisinopril [Zestril] 5 mg PO DAILY #30 tab Continue Aspirin EC [Ecotrin Low Dose] 81 mg PO DAILY Discontinued Hydrochlorothiazide [Hydrodiuril] 12.5 mg PO DAILY No Action Cholecalciferol [Vitamin D3] 1,000 unit PO DAILY Loratadine [Claritin] 10 mg PO DAILY HYDROcodone/APAP 5-325MG [[place] 5-325] 1 tab PO TID PRN PRN Reason: Pain Carboxymethylcellulose Sodium [Refresh Tears] 1 drop BOTH EYES TID Discharge Medication List Aspirin EC [Ecotrin Low Dose] 81 mg PO DAILY 11/29/18 [History] Cholecalciferol [Vitamin D3] 1,000 unit PO DAILY 11/29/18 [History] HYDROcodone/APAP 5-325MG [[place] 5-325] 1 tab PO TID PRN 11/29/18 [History] Loratadine [Claritin] 10 mg PO DAILY 11/29/18 [History] Carboxymethylcellulose Sodium [Refresh Tears] 1 drop BOTH EYES TID 12/09/18 [History] Atorvastatin [Lipitor] 80 mg PO HS #30 tab 12/12/18 [Rx] Lisinopril [Zestril] 5 mg PO DAILY #30 tab 12/12/18 [Rx] Metoprolol Tartrate [Lopressor] 25 mg PO BID #60 tab 12/12/18 [Rx] Nitroglycerin Sl Tabs [Nitrostat] 0.4 mg SUBLINGUAL Q5M PRN #25 tab 12/12/18 [Rx] Ticagrelor [Brilinta] 90 mg PO BID #60 tab 12/12/18 [Rx] Follow up Appointment(s)/Referral(s): Kendall Ramirez MD [STAFF PHYSICIAN] - 2 Weeks (Office will call with follow up appointment. ) [facility],Clinic [Primary Care Provider] - 1 Week (Office will call with follow up appointment.) Ambulatory/Diagnostic Orders: Basic Metabolic Panel [LAB.AMB] Time Frame: 3 Days, Location: None Selected Patient Instructions/Handouts: Heart Attack (DC), Heart Healthy Diet (DC), Coronary Intravascular Stent Placement (DC) Activity/Diet/Wound Care/Special Instructions: Please start clopidogrel (plavix) after one month supply of brilinta is complete. These are in the same medication class. Do not take both at the same time. pts new meds filled in [facility] pharmacy-indigent funds applied and list of [facility] med[facility] Discharge Disposition: HOME SELF-CARE
== END 2018-12-12 15:15 | disposition home or self-care (01) | DRG 246 ==
LOC: EC 09:24 → 2SICU 09:35 → 3SCARD 12-10 21:34
PROVIDERS: ADMIT Hospitalist; ATTEND Hospitalist
PROC: 027137Z Dilation of Coronary Artery, Two Arteries with Four or More Drug-eluting Intraluminal Devices, Percutaneous Approach (ICD-10-PCS; principal; 2018-12-09 09:47)
PROC: 4A023N7 Measurement of Cardiac Sampling and Pressure, Left Heart, Percutaneous Approach (ICD-10-PCS; 2018-12-09 09:47)
PROC: B2111ZZ Fluoroscopy of Multiple Coronary Arteries using Low Osmolar Contrast (ICD-10-PCS; 2018-12-09 09:47)
DX: I21.19 ST elevation (STEMI) myocardial infarction involving other coronary artery of inferior wall (principal); I13.0 Hypertensive heart and chronic kidney disease with heart failure and stage 1 through stage 4 chronic kidney disease, or unspecified chronic kidney disease; I50.20 Unspecified systolic (congestive) heart failure; N17.9 Acute kidney failure, unspecified; E11.22 Type 2 diabetes mellitus with diabetic chronic kidney disease; E78.5 Hyperlipidemia, unspecified; I25.2 Old myocardial infarction; I25.5 Ischemic cardiomyopathy; I44.7 Left bundle-branch block, unspecified; N18.2 Chronic kidney disease, stage 2 (mild); T46.4X5A Adverse effect of angiotensin-converting-enzyme inhibitors, initial encounter; Z79.82 Long term (current) use of aspirin; Z79.899 Other long term (current) drug therapy; Z87.891 Personal history of nicotine dependence; I25.10 Atherosclerotic heart disease of native coronary artery without angina pectoris
CPT/HCPCS: 71045; 80048; 80053; 82150; 83690; 83735; 83880; 84484; 85025; 85379; 85610; 85730; 93005; 93306; 93458; 99291; C1874

== ENCOUNTER 2019-01-04 14:03 | Inpatient (IN) | payer OTHER, MEDICARE ==
[2019-01-04] MEDS ORDERED: ACETAMINOPHEN TAB 500 MG TAB PO STA (14:52)
--- NOTE | 2019-01-04 14:58 | ED ---
General Adult HPI - General Chief complaint: Shortness of Breath Stated complaint: Fever Time Seen by Provider: 01/04/19 14:04 Source: patient, EMS, RN notes reviewed Mode of arrival: EMS Limitations: no limitations - History of Present Illness Initial comments: Patient is a pleasant 83-year-old male presenting to the emergency department with fever. Onset of symptoms was today. Patient is somewhat a poor historian. Patient denies any chest discomfort or dyspnea to me. No back pain. No abdominal pain. Patient does feel like his urine appears strong. Patient feels fatigued. Patient was shaking when EMS arrived. Patient did have cardiac jordi nts placed a few weeks ago. - Related Data Home Medications Medication Instructions Recorded Confirmed Aspirin EC [Ecotrin Low Dose] 81 mg PO DAILY 11/29/18 01/04/19 Cholecalciferol [Vitamin D3] 1,000 unit PO DAILY 11/29/18 01/04/19 HYDROcodone/APAP 5-325MG [[place] 1 tab PO TID PRN 11/29/18 01/04/19 5-325] Loratadine [Claritin] 10 mg PO DAILY 11/29/18 01/04/19 Carboxymethylcellulose Sodium 1 drop BOTH EYES TID 12/09/18 01/04/19 [Refresh Tears] Previous Rx's Medication Instructions Recorded Atorvastatin [Lipitor] 80 mg PO HS #30 tab 12/12/18 Lisinopril [Zestril] 5 mg PO DAILY #30 tab 12/12/18 Metoprolol Tartrate [Lopressor] 25 mg PO BID #60 tab 12/12/18 Nitroglycerin Sl Tabs [Nitrostat] 0.4 mg SUBLINGUAL Q5M PRN #25 tab 12/12/18 Ticagrelor [Brilinta] 90 mg PO BID #60 tab 12/12/18 Allergies Allergy/AdvReac Type Severity Reaction Status Date / Time No Known Allergies Allergy Verified 01/04/19 14:11 Review of Systems ROS Statement: Those systems with pertinent positive or pertinent negative responses have been documented in the HPI. ROS Other: All systems not noted in ROS Statement are negative. 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 Last Myocardial Infarction Date:: 12/09/18 History of Any Multi-Drug Resistant Organisms: None Reported Past Surgical History: Heart Catheterization With Stent, Orthopedic Surgery Additional Past Surgical History / Comment(s): Right ankle fracture Past Anesthesia/Blood Transfusion Reactions: No Reported Reaction Date of Last Stent Placement:: 12/09/18 Past Psychological History: No Psychological Hx Reported Smoking Status: Former smoker Past Alcohol Use History: None Reported Past Drug Use History: None Reported - Past Family History Father History Unknown: Yes Mother History Unknown: Yes General Exam Limitations: no limitations General appearance: alert, in no apparent distress Head exam: Present: atraumatic Eye exam: Present: normal appearance, PERRL ENT exam: Present: normal oropharynx Neck exam: Present: normal inspection Respiratory exam: Present: normal lung sounds bilaterally Cardiovascular Exam: Present: tachycardia GI/Abdominal exam: Present: soft. Absent: tenderness Extremities exam: Present: normal inspection Neurological exam: Present: alert Psychiatric exam: Present: normal affect, normal mood Skin exam: Present: normal color. Absent: rash Course Vital Signs 01/04/19 01/04/19 14:12 15:48 Temperature 101.4 F H 99.1 F Pulse Rate 122 H 105 H Respiratory 24 20 Rate Blood Pressure 166/78 94/56 O2 Sat by Pulse 96 100 Oximetry EKG Findings - EKG Comments: EKG Findings:: Sinus tachycardia 119. VA 172. QRS 144. QT 378. QTC 531. Normal axis. Left bundle branch block. Nonspecific ST-T. Medical Decision Making - Medical Decision Making Patient does meet sepsis criteria diagnosed at 1550. Blood culture and lactic acid have been ordered. IV antibiotics will be ordered. Patient reevaluated. Patient and family updated. Dr. Lozada has been paged for this [place] patient. - Lab Data Result diagrams: 01/04/19 14:20 01/04/19 14:20 Lab Results 01/04/19 01/04/19 01/04/19 Range/Units 14:20 14:20 14:20 WBC 7.7 (3.8-10.6) k/uL RBC 4.62 (4.30-5.90) m/uL Hgb 13.4 (13.0-17.5) gm/dL Hct 40.1 (39.0-53.0) % MCV 87.0 (80.0-100.0) fL MCH 29.0 (25.0-35.0) pg MCHC 33.4 (31.0-37.0) g/dL RDW 15.0 (11.5-15.5) % Plt Count 135 L (150-450) k/uL Neutrophils % 91 % Lymphocytes % 6 % Monocytes % 1 % Eosinophils % 1 % Basophils % 0 % Neutrophils # 7.0 (1.3-7.7) k/uL Lymphocytes # 0.4 L (1.0-4.8) k/uL Monocytes # 0.1 (0-1.0) k/uL Eosinophils # 0.1 (0-0.7) k/uL Basophils # 0.0 (0-0.2) k/uL PT (9.0-12.0) sec INR (<1.2) APTT (22.0-30.0) sec Sodium 138 (137-145) mmol/L Potassium 4.5 (3.5-5.1) mmol/L Chloride 108 H (98-107) mmol/L Carbon Dioxide 20 L (22-30) mmol/L Anion Gap 10 mmol/L BUN 25 H (9-20) mg/dL Creatinine 1.28 H (0.66-1.25) mg/dL Est GFR (CKD-EPI)AfAm 59 (>60 ml/min/1.73 sqM) Est GFR (CKD-EPI)NonAf 51 (>60 ml/min/1.73 sqM) Glucose 175 H (74-99) mg/dL Plasma Lactic Acid Juan F (0.7-2.0) mmol/L Calcium 9.3 (8.4-10.2) mg/dL Total Bilirubin 1.8 H (0.2-1.3) mg/dL AST 25 (17-59) U/L ALT 28 (21-72) U/L Alkaline Phosphatase 122 (38-126) U/L Creatine Kinase 41 L (55-170) U/L Total Protein 6.8 (6.3-8.2) g/dL Albumin 3.9 (3.5-5.0) g/dL Urine Color Yellow Urine Appearance Cloudy (Clear) Urine pH 5.5 (5.0-8.0) Ur Specific [place] 1.013 (1.001-1.035) Urine Protein 1+ H (Negative) Urine Glucose (UA) Negative (Negative) Urine Ketones Negative (Negative) Urine Blood Moderate H (Negative) Urine Nitrite Positive (Negative) Urine Bilirubin Negative (Negative) Urine Urobilinogen <2.0 (<2.0) mg/dL Ur Leukocyte Esterase Large H (Negative) Urine RBC >182 H (0-5) /hpf Urine WBC >182 H (0-5) /hpf Ur Squamous Epith Cells <1 (0-4) /hpf Urine Bacteria Occasional H (None) /hpf Urine Mucus Rare H (None) /hpf 01/04/19 01/04/19 Range/Units 14:20 15:15 WBC (3.8-10.6) k/uL RBC (4.30-5.90) m/uL Hgb (13.0-17.5) gm/dL Hct (39.0-53.0) % MCV (80.0-100.0) fL MCH (25.0-35.0) pg MCHC (31.0-37.0) g/dL RDW (11.5-15.5) % Plt Count (150-450) k/uL Neutrophils % % Lymphocytes % % Monocytes % % Eosinophils % % Basophils % % Neutrophils # (1.3-7.7) k/uL Lymphocytes # (1.0-4.8) k/uL Monocytes # (0-1.0) k/uL Eosinophils # (0-0.7) k/uL Basophils # (0-0.2) k/uL PT 10.6 (9.0-12.0) sec INR 1.0 (<1.2) APTT 23.3 (22.0-30.0) sec Sodium (137-145) mmol/L Potassium (3.5-5.1) mmol/L Chloride (98-107) mmol/L Carbon Dioxide (22-30) mmol/L Anion Gap mmol/L BUN (9-20) mg/dL Creatinine (0.66-1.25) mg/dL Est GFR (CKD-EPI)AfAm (>60 ml/min/1.73 sqM) Est GFR (CKD-EPI)NonAf (>60 ml/min/1.73 sqM) Glucose (74-99) mg/dL Plasma Lactic Acid Juan F 2.0 (0.7-2.0) mmol/L Calcium (8.4-10.2) mg/dL Total Bilirubin (0.2-1.3) mg/dL AST (17-59) U/L ALT (21-72) U/L Alkaline Phosphatase (38-126) U/L Creatine Kinase (55-170) U/L Total Protein (6.3-8.2) g/dL Albumin (3.5-5.0) g/dL Urine Color Urine Appearance (Clear) Urine pH (5.0-8.0) Ur Specific [place] (1.001-1.035) Urine Protein (Negative) Urine Glucose (UA) (Negative) Urine Ketones (Negative) Urine Blood (Negative) Urine Nitrite (Negative) Urine Bilirubin (Negative) Urine Urobilinogen (<2.0) mg/dL Ur Leukocyte Esterase (Negative) Urine RBC (0-5) /hpf Urine WBC (0-5) /hpf Ur Squamous Epith Cells (0-4) /hpf Urine Bacteria (None) /hpf Urine Mucus (None) /hpf - Radiology Data Radiology results: image reviewed (X-ray shows no acute process) Critical Care Time Critical Care Time: Yes Total Critical Care Time: 33 Disposition Clinical Impression: Urinary tract infection, Sepsis Disposition: ADMITTED IP TO THIS HOSP Is patient prescribed a controlled substance at d/c from ED?: No Referrals: [facility],Clinic [Primary Care Provider] - 1-2 days Decision Time: 15:51
[2019-01-04 14:59] LABS: Appearance,Urine Cloudy (Clear); Bacteria,Urine Occasional /hpf; Bilirubin,Urine Negative (Negative); Blood,Urine Moderate (Negative); Color,Urine Yellow; Glucose,Urine (UA) Negative (Negative); Ketones,Urine Negative (Negative); Leukocyte Esterase,Urine Large (Negative); Mucus,Urine Rare /hpf; Nitrite,Urine Positive (Negative); PH, Urine 5.5 (5.0-8.0); Protein,Urine 1+ (Negative); RBC,Urine >182 /hpf (0-5); Specific Gravity,Urine 1.013 (1.001-1.035); Squamous Epithelial Cell,Urine <1 /hpf (0-4); Urobilinogen,Urine <2.0 mg/dL (<2.0)
[2019-01-04 15:13] LABS: Basophils % (A) 0 %; Eosinophils # (A) 0.1 k/uL (0-0.7); Eosinophils % (A) 1 %; HCT 40.1 % (39.0-53.0); HGB 13.4 gm/dL (13.0-17.5); Lymphocytes # (A) 0.4 k/uL (1.0-4.8); Lymphocytes % (A) 6 %; MCHC 33.4 g/dL (31.0-37.0); Mean Platelet Volume 7.6; Monocytes # (A) 0.1 k/uL (0-1.0); Monocytes % (A) 1 %; Neutrophils % (A) 91 %; Platelet Count 135 k/uL (150-450); RBC 4.62 m/uL (4.30-5.90); WBC 7.7 k/uL (3.8-10.6)
[2019-01-04 15:22] LABS: Albumin 3.9 g/dL (3.5-5.0); Calcium 9.3 mg/dL (8.4-10.2); Potassium 4.5 mmol/L (3.5-5.1); Total Bilirubin 1.8 mg/dL (0.2-1.3); Total Protein 6.8 g/dL (6.3-8.2)
[2019-01-04 15:37] LABS: Partial Thromboplastin Time 23.3 sec (22.0-30.0); Prothrombin Time 10.6 sec (9.0-12.0)
--- NOTE | 2019-01-04 15:38 | XR ---
EXAMINATION TYPE: XR chest 2V DATE OF EXAM: 01/04/2019 COMPARISON: 12/10/2018 HISTORY: Shortness of breath TECHNIQUE: Frontal and lateral views of the chest are obtained. FINDINGS: Scattered senescent parenchymal changes noted. Hyperinflation compatible with COPD. No evidence for infiltrate. No evidence for atelectasis. Heart size is stable. Mediastinal structures are stable and grossly unremarkable. No evidence for hilar prominence. Degenerative changes dorsal spine. IMPRESSION: 1. No evidence for acute pulmonary disease.
[2019-01-04] MEDS ORDERED: NALOXONE 0.4 MG/ML 1 ML VIAL IV PRN (15:52)
[2019-01-04] MEDS: SODIUM CHLORIDE 0.9% 1,000 ML IV SCH (16:16)
[2019-01-04] MEDS ORDERED: SODIUM CHLORIDE 0.9% 500 ML 500 ML IV ONE (17:30)
[2019-01-04] MEDS ORDERED: NITROGLYCERIN SL TABS 0.4 MG TAB SUBLINGUAL PRN (17:43)
[2019-01-04] MEDS ORDERED: HYDROcodone/APAP 5-325MG 1 EACH TAB PO PRN (17:43)
[2019-01-04] MEDS ORDERED: SODIUM CHLORIDE 0.9% IVPB ONE (17:44)
[2019-01-04] MEDS ORDERED: VANCOMYCIN IVPB ONE (17:44)
[2019-01-04] MEDS ORDERED: VANCOMYCIN IV PER PHARMACY 1 EACH MISC MISCELLANE PRN (17:44)
[2019-01-04] MEDS ORDERED: TEMAZEPAM 15 MG CAP PO PRN (17:45)
[2019-01-04] MEDS ORDERED: ALPRAZolam 0.25 MG TAB PO PRN (17:45)
[2019-01-04] MEDS: PIPERACILLIN-TAZOBACTAM 3.375 GM in SODIUM CHLORIDE 0.9% 100 ML IVPB SCH (18:27)
[2019-01-04] MEDS: VANCOMYCIN 1,500 MG in SODIUM CHLORIDE 0.9% 250 ML IVPB SCH (20:01)
[2019-01-04] MEDS: ATORVASTATIN 80 MG TAB PO SCH (21:48)
[2019-01-04] MEDS: ARTIFICIAL TEARS-HYPROMELLOSE DROPS 15 ML BTL BOTH EYES SCH (21:48)
[2019-01-04] MEDS: TICAGRELOR 90 MG TAB PO SCH (21:49)
[2019-01-04] MEDS: HEPARIN SODIUM,PORCINE 5,000 UNIT/ML 1 ML VIAL SQ SCH (21:49)
[2019-01-05] MEDS: PIPERACILLIN-TAZOBACTAM 3.375 GM in SODIUM CHLORIDE 0.9% 100 ML IVPB SCH ×4 (02:47→23:28)
--- NOTE | 2019-01-05 06:42 | HP ---
HISTORY AND PHYSICAL DATE OF SERVICE: 01/04/2019 CHIEF COMPLAINTS: Back pain, tiredness and weakness. HISTORY OF PRESENT ILLNESS: This 83-year-old gentleman with a past medical history of hypertension, history of myocardial infarction, skin disorder, CAD with stent being followed by Dr. Ma in the outpatient setting was recently admitted with multiple complex medical problems including myocardial infarction, history of CHF and as well as renal failure. Patient had a stent placement during that time. Currently, the patient complains of back pain, abdominal discomfort, weakness, fatigue, strong urine and patient came to [facility] and the patient was suspected to have UTI with sepsis. Patient also has shaking chills. The patient was found to have some hypotension and patient admitted for further evaluation. Fluid bolus also being administered at this time. Lactic acid was found to be normal. There is no history of any fever, rigors. No history of headache, loss consciousness, or seizures at this time. Troponin is 0.058. PAST MEDICAL HISTORY: History of recent myocardial infarction, stent, history of hypertension, history of CHF, history of renal failure, history of CAD stent, history of DJD. MEDICATIONS: Medications prior to admission home medications are: 1. Brilinta 90 mg p.o. b.i.d. 2. Nitrostat 0.4 sublingual p.r.n. 3. Lopressor 25 mg p.o. b.i.d. 4. Claritin 10 mg p.o. daily. 5. Zestril 5 mg p.o. daily. 6. [place] 5 mg p.o. t.i.d. p.r.n. 7. Vitamin D3, 1000 daily. 8. Refresh 1 drop t.i.d. 9. Lipitor 80 mg q.h.s. 10.Ecotrin 81 mg p.o. daily. ALLERGIES: Allergies are none. FAMILY HISTORY: No history of heart disease or strokes in the family. SOCIAL HISTORY: Previous history of smoking. No history of current smoking or alcohol intake. REVIEW OF SYSTEMS: ENT: No diminished hearing or diminished vision. CARDIOVASCULAR SYSTEM: As mentioned earlier. RESPIRATORY SYSTEM: As mentioned earlier. GI: As mentioned earlier. : As mentioned earlier. NERVOUS SYSTEM: No numbness or weakness. ALLERGY/IMMUNOLOGY: No asthma. MUSCULOSKELETAL: As mentioned earlier. HEMATOLOGY/ONCOLOGY: No history of anemia. ENDOCRINE: No history of diabetes or hypothyroidism. CONSTITUTIONAL: As mentioned earlier. DERMATOLOGY: Negative. RHEUMATOLOGY: Negative. PSYCHIATRY: As mentioned earlier. PHYSICAL EXAMINATION: The patient is alert and oriented x3. Pulse 73, blood pressure is 102/54, respiration 14, temperature 97.4, pulse ox 98% on 2 L. HEENT: Conjunctivae normal. NECK: No jugular venous distention. CARDIOVASCULAR: S1, S2 muffled. RESPIRATION: Breath sounds diminished at the bases. A few scattered rhonchi and crackles. ABDOMEN: Soft, nontender. No mass palpable. LEGS: No edema. No swelling. NERVOUS SYSTEM: Higher functions as mentioned. Moves all 4 limbs. No focal motor or sensory deficits. LYMPHATICS: No lymphadenopathy of the neck, axillae or groin. SKIN: No ulcer, rash or bleeding. JOINTS: No active deforming arthropathy. LABS: WBC 7.7, hemoglobin 13.4, platelets 135. Creatinine is 1.28 and total bilirubin is 1.8. Troponin 0.058. UA noted. ASSESSMENT: 1. Acute urinary tract infection with sepsis, present on admission. 2. Mild thrombocytopenia. 3. Increased creatinine with chronic kidney disease stage 3. 4. Troponin 0.058, indeterminate. 5. History of ST-elevation myocardial infarction and stent . 6. History of recent systolic dysfunction congestive heart failure, ejection fraction 30% to 35%. 7. History of recent renal failure. 8. Hypertension. 9. Hyperlipidemia. 10.Degenerative joint disease. 11.History of right ankle fracture. 12.Remote history of nicotine dependence. RECOMMENDATIONS AND DISCUSSION: This 83-year-old gentleman who presented with multiple complex medical issues, will monitor the patient closely. Continue the current medications, continue symptomatic treatment. Will initiate broad-spectrum IV antibiotics. Obtain cultures. I would also recommend cardiology evaluation also because of the recent procedures. Continue the antiplatelet agents. Otherwise IV fluid bolus cautiously and continue to monitor. Guarded prognosis because of multiple complex medical issues. Further recommendations to follow. Infectious disease evaluation also being sought. Prognosis guarded because of multiple complex medical issues. See orders for details. Further recommendations to follow. MMODL / IJN: [id number] / MTDD
[2019-01-05 08:11] LABS: Basophils % (A) 0 %; Eosinophils % (A) 0 %; HCT 36.2 % (39.0-53.0); HGB 11.9 gm/dL (13.0-17.5); Lymphocytes # (A) 0.6 k/uL (1.0-4.8); Lymphocytes % (A) 5 %; MCH 29.2 pg (25.0-35.0); MCHC 32.8 g/dL (31.0-37.0); Mean Platelet Volume 7.4; Monocytes # (A) 0.6 k/uL (0-1.0); Monocytes % (A) 5 %; Neutrophils # (A) 11.9 k/uL (1.3-7.7); Neutrophils % (A) 89 %; Platelet Count 114 k/uL (150-450); RBC 4.07 m/uL (4.30-5.90); RDW 14.4 % (11.5-15.5); WBC 13.4 k/uL (3.8-10.6)
[2019-01-05 08:48] LABS: Calcium 8.6 mg/dL (8.4-10.2); Potassium 4.6 mmol/L (3.5-5.1)
[2019-01-05] MEDS: PANTOPRAZOLE 40 MG TABLET PO SCH (08:58)
[2019-01-05] MEDS: TICAGRELOR 90 MG TAB PO SCH ×2 (08:58→20:22)
[2019-01-05] MEDS: ASPIRIN 81 MG PO SCH (08:59)
[2019-01-05] MEDS: ARTIFICIAL TEARS-HYPROMELLOSE DROPS 15 ML BTL BOTH EYES SCH ×3 (08:59→20:22)
[2019-01-05] MEDS: CHOLECALCIFEROL 1,000 UNIT TAB PO SCH (08:59)
[2019-01-05] MEDS: HEPARIN SODIUM,PORCINE 5,000 UNIT/ML 1 ML VIAL SQ SCH ×2 (08:59→20:22)
[2019-01-05] MEDS: LORATADINE 10 MG TAB PO SCH (08:59)
--- NOTE | 2019-01-05 11:29 | P.PN ---
Subjective 83-year-old very pleasant gentleman is admitted for sepsis secondary which was believed secondary to urinary tract infection that is no evidence of pneumonia at this time. Patient was recently discharged from the hospital about the month and half ago after he was treated for myocardial infarction congestive heart failure exacerbation. Patient is presently not on Lasix his previous ejection fraction is around 35%. Patient has acute renal failure because of which she is receiving IV fluid gentle hydration 50 mL/h Will closely monitor his respiratory status. Patient has minimally elevated troponins secondary to sepsis no evidence of microinfarction clinically are from EKG. Will repeat another set of troponin tomorrow. 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 Baseline creatinine appears to be around 1.1 presently 1.3. Constitutional: Denied any fatigue denied any fever. Last fever was last night Cardio vascular: denied any chest pain, palpitations Gastrointestinal denied any nausea vomiting Pulmonary: Denied any shortness of breath cough Neurologic denied any new focal deficits All inpatient medications were reviewed and appropriate changes in these medications as dictated in the interval history and assessment and plan. Objective - Vital Signs Vital signs: Vital Signs Temp 98.2 F 01/05/19 08:54 Pulse 84 01/05/19 08:54 Resp 16 01/05/19 08:54 BP 128/70 01/05/19 08:54 Pulse Ox 96 01/05/19 08:54 Intake & Output 01/04/19 01/05/19 01/05/19 18:59 06:59 18:59 Intake Total 75 320 Output Total 300 Balance 75 -300 320 Weight 87.997 kg Intake: Amount of Fluid Infused ( 75 ml) Oral 320 Output: Urine 300 Other: Voiding Method Urinal Urinal - Exam PHYSICAL EXAMINATION: GENERAL: The patient is alert and oriented x3, not in any acute distress. Well developed, well nourished. HEENT: Pupils are round and equally reacting to light. EOMI. No scleral icterus. No conjunctival pallor. Normocephalic, atraumatic. No pharyngeal erythema. No thyromegaly. CARDIOVASCULAR: S1 and S2 present. No murmurs, rubs, or gallops. PULMONARY: Chest is clear to auscultation, no wheezing or crackles. ABDOMEN: Soft, nontender, nondistended, normoactive bowel sounds. No palpable organomegaly. MUSCULOSKELETAL: No joint swelling or deformity. EXTREMITIES: No cyanosis, clubbing, or pedal edema. NEUROLOGICAL: Gross neurological examination did not reveal any focal deficits. SKIN: No rashes. - Labs CBC & Chem 7: 01/05/19 07:25 01/05/19 07:20 Labs: Abnormal Lab Results - Last 24 Hours (Table) 01/04/19 01/04/19 01/04/19 Range/Units 14:20 14:20 14:20 WBC (3.8-10.6) k/uL RBC (4.30-5.90) m/uL Hgb (13.0-17.5) gm/dL Hct (39.0-53.0) % Plt Count 135 L (150-450) k/uL Neutrophils # (1.3-7.7) k/uL Lymphocytes # 0.4 L (1.0-4.8) k/uL Chloride 108 H (98-107) mmol/L Carbon Dioxide 20 L (22-30) mmol/L BUN 25 H (9-20) mg/dL Creatinine 1.28 H (0.66-1.25) mg/dL Glucose 175 H (74-99) mg/dL Total Bilirubin 1.8 H (0.2-1.3) mg/dL Creatine Kinase 41 L (55-170) U/L Troponin I (0.000-0.034) ng/mL Urine Protein 1+ H (Negative) Urine Blood Moderate H (Negative) Ur Leukocyte Esterase Large H (Negative) Urine RBC >182 H (0-5) /hpf Urine WBC >182 H (0-5) /hpf Urine Bacteria Occasional H (None) /hpf Urine Mucus Rare H (None) /hpf 01/04/19 01/05/19 01/05/19 Range/Units 14:20 07:20 07:25 WBC 13.4 H (3.8-10.6) k/uL RBC 4.07 L (4.30-5.90) m/uL Hgb 11.9 L (13.0-17.5) gm/dL Hct 36.2 L (39.0-53.0) % Plt Count 114 L (150-450) k/uL Neutrophils # 11.9 H (1.3-7.7) k/uL Lymphocytes # 0.6 L (1.0-4.8) k/uL Chloride 109 H (98-107) mmol/L Carbon Dioxide (22-30) mmol/L BUN 28 H (9-20) mg/dL Creatinine 1.36 H (0.66-1.25) mg/dL Glucose 116 H (74-99) mg/dL Total Bilirubin (0.2-1.3) mg/dL Creatine Kinase (55-170) U/L Troponin I 0.058 H* (0.000-0.034) ng/mL Urine Protein (Negative) Urine Blood (Negative) Ur Leukocyte Esterase (Negative) Urine RBC (0-5) /hpf Urine WBC (0-5) /hpf Urine Bacteria (None) /hpf Urine Mucus (None) /hpf Microbiology - Last 24 Hours (Table) 01/04/19 14:20 Blood Culture Gram Stain - Preliminary Blood 01/04/19 14:20 Blood Culture - Final Blood 01/04/19 14:20 Urine Culture - Preliminary Urine,Voided Assessment and Plan Plan: Sepsis: Possibly secondary to urinary tract infection patient does not appear to have benign prostatic hypertrophic or urinary retention at this time. Patient will be continued on Zosyn awaiting urine cultures and sensitivities. -Acute renal failure on chronic kidney disease stage II: Acute renal failure is probably related to sepsis gentle hydration considering his recent heart failure at although not in acute exacerbation at this time -Congestive heart failure chronic systolic dysfunction without any acute exacerbation -Coronary artery disease with recent myocardial infarction continued Antiplatelet therapy beta ron as well as ALTAGRACIA inhibitor at this time if agents the serum creatinine doesn't improve then we can consider holding off on ALTAGRACIA inhibitor at the time -Hypertension next and-hyperlipidemia -Due to prophylaxis with the subcutaneous heparin twice a day
--- NOTE | 2019-01-05 12:38 | P.CRDCN ---
History of Present Illness History of present illness: This is a pleasant 83-year-old male past medical history significant for coronary artery disease status post stent placement in the setting of an acute ST elevated myocardial infarction 12/09/2018, ischemic cardiomyopathy, hypertension, dyslipidemia and borderline diabetes. He presented to the hospital yesterday with symptoms of fever, fatigue and overall generalized weakness. He was found to have a urinary tract infection and has been started on IV antibiotics. We have been asked to see the patient in consultation secondary to a mild troponin elevation. He is seen and examined resting comfortably in bed in no acute distress. He denies ever having had any symptoms of chest discomfort, shortness of breath, dizziness or palpitations. He is to follow-up in the office after his event secondary to insurance concerns, [facility] is [facility]. EKG reveals sinus tachycardia with a left bundle branch block. Chest x-ray is negative for an acute cardiopulmonary process. Laboratory data reviewed, WBC 13.4, hemoglobin 11.9, platelets 114, sodium 140, potassium 4.6, creatinine 1.36, GFR 47, troponin 0.058. Current cardiac medications include Brilinta 90 mg twice a day, aspirin 81 mg daily, atorvastatin 80 mg daily, lisinopril 5 mg daily and Lopressor 25 mg twice a day. Lisinopril has been held since admission secondary to hypotension and acute kidney injury. Echocardiogram obtained in November reveals impaired LV systolic function with ejection fraction 30-35%. He underwent successful stent placement to the RCA as well as the PDA. He also had 30-40% plaque in the distal left main, 80-90% stenosis at the takeoff of the second OM and diffuse intimal disease of approximately 30-40% in the LAD. At the time of my exam: CONSTITUTIONAL: Denies fever. Denies chills. EYES: Denies blurred vision. Denies vision changes. Denies eye pain. EARS, NOSE, MOUTH & THROAT: Denies headache. Denies sore throat. Denies ear pain. CARDIOVASCULAR: Denies chest pain. Denies shortness of breath. Denies orthopnea. Denies PND. Denies palpitations. RESPIRATORY: Denies cough. GASTROINTESTINAL: Denies abdominal pain. Denies diarrhea. Denies constipation. Denies nausea. Denies vomiting. MUSCULOSKELETAL: Denies myalgias. INTEGUMENTARY: Denies pruitis. Denies rash. NEUROLOGIC: Denies numbness. Denies tingling. Denies weakness. PSYCHIATRIC: Denies anxiety. Denies depression. ENDOCRINE: Denies fatigue. Denies weight change. Denies polydipsia. Denies polyurina. GENITOURINARY: Denies burning, hematuria or urgency with micturation. HEMATOLOGIC: Denies history of anemia. Denies bleeding. Blood pressure 128/70 heart rate 84 afebrile maintaining oxygen saturation on nasal cannula GENERAL: This is a 83-year-old male in no apparent distress at the time of my examination. HEENT: Head is atraumatic, normocephalic. Pupils are equal, round. Sclerae anicteric. Conjunctivae are clear. Mucous membranes of the mouth are moist. Neck is supple. There is no jugular venous distention. No carotid bruit is heard. LUNGS: Clear to auscultation no wheezes, rales or rhonchi. No chest wall tenderness is noted on palpation or with deep breathing. HEART: Regular rate and rhythm without murmurs, rubs or gallops. S1 and S2 heard. ABDOMEN: Soft, nontender. Bowel sounds are heard. No organomegaly noted. EXTREMITIES: No evidence of peripheral edema and no calf tenderness noted. VASCULAR: Radial and dorsalis pedis pulses palpated, no evidence of clubbing. NEUROLOGIC: Patient is awake, alert and oriented x3. ASSESSMENT Acute sepsis secondary to urinary tract infection Mild troponin elevation secondary to sepsis, acute kidney injury and recent myocardial infarction Acute kidney injury Coronary artery disease status post shunt placement in the setting of an ST elevated myocardial infarction maintained on dual antiplatelet therapy Ischemic cardiomyopathy Hypertension with episodes of hypotension Dyslipidemia PLAN Clinically the patient has no symptoms suggestive of angina or progression of coronary artery disease. Mild troponin elevation secondary to recent myocardial injury with peak troponin of 25, acute kidney injury and sepsis. Resume lisinopril 2.5 mg daily. Continue with dual antiplatelet therapy, statin and beta blockers. Follow-up with Dr. He upon discharge. Ongoing medical management, no further cardiac work-up at this time. Thank you kindly for this consultation. Nurse Practitioner note has been reviewed, I agree with a documented findings and plan of care. Patient was seen and examined. 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 Last Myocardial Infarction Date:: 12/09/18 History of Any Multi-Drug Resistant Organisms: None Reported Past Surgical History: Heart Catheterization With Stent, Orthopedic Surgery Additional Past Surgical History / Comment(s): Right ankle fracture Past Anesthesia/Blood Transfusion Reactions: No Reported Reaction Date of Last Stent Placement:: 12/09/18 Past Psychological History: No Psychological Hx Reported Smoking Status: Former smoker Past Alcohol Use History: None Reported Past Drug Use History: None Reported - Past Family History Father History Unknown: Yes Mother History Unknown: Yes Medications and Allergies Home Medications Medication Instructions Recorded Confirmed Type Aspirin EC [Ecotrin Low Dose] 81 mg PO DAILY 11/29/18 01/04/19 History Cholecalciferol [Vitamin D3] 1,000 unit PO DAILY 11/29/18 01/04/19 History HYDROcodone/APAP 5-325MG [[address] 1 tab PO TID PRN 11/29/18 01/04/19 History 5-325] Loratadine [Claritin] 10 mg PO DAILY 11/29/18 01/04/19 History Carboxymethylcellulose Sodium 1 drop BOTH EYES TID 12/09/18 01/04/19 History [Refresh Tears] Atorvastatin [Lipitor] 80 mg PO HS #30 tab 12/12/18 01/04/19 Rx Lisinopril [Zestril] 5 mg PO DAILY #30 tab 12/12/18 01/04/19 Rx Metoprolol Tartrate [Lopressor] 25 mg PO BID #60 tab 12/12/18 01/04/19 Rx Nitroglycerin Sl Tabs [Nitrostat] 0.4 mg SUBLINGUAL Q5M PRN #25 tab 12/12/18 01/04/19 Rx Ticagrelor [Brilinta] 90 mg PO BID #60 tab 12/12/18 01/04/19 Rx Allergies Allergy/AdvReac Type Severity Reaction Status Date / Time No Known Allergies Allergy Verified 01/04/19 14:11 Physical Exam Vitals: Vital Signs Temp Pulse Pulse Resp BP BP Pulse Ox 01/05/19 08:54 98.2 F 84 16 128/70 96 01/05/19 00:37 97.8 F 75 15 105/52 99 01/04/19 19:28 97.4 F L 73 14 102/54 98 05/08/19 18:54 98/58 01/04/19 17:21 83 12 83/43 97 01/04/19 16:17 97 18 99/50 97 01/04/19 15:48 99.1 F 105 H 20 94/56 100 01/04/19 14:12 101.4 F H 122 H 24 166/78 96 Intake and Output 01/04/19 01/05/19 01/05/19 22:59 06:59 14:59 Intake Total 75 320 Output Total 100 200 Balance -25 -200 320 Intake: Amount of Fluid Infused ( 75 ml) Oral 320 Output: Urine 100 200 Other: Voiding Method Urinal Urinal Results 01/05/19 07:25 01/05/19 07:20 Cardiac Enzymes 01/04/19 01/04/19 Range/Units 14:20 14:20 AST 25 (17-59) U/L Troponin I 0.058 H* (0.000-0.034) ng/mL Coagulation 01/04/19 Range/Units 14:20 PT 10.6 (9.0-12.0) sec APTT 23.3 (22.0-30.0) sec CBC 01/04/19 01/05/19 Range/Units 14:20 07:25 WBC 7.7 13.4 H (3.8-10.6) k/uL RBC 4.62 4.07 L (4.30-5.90) m/uL Hgb 13.4 11.9 L (13.0-17.5) gm/dL Hct 40.1 36.2 L (39.0-53.0) % Plt Count 135 L 114 L (150-450) k/uL Comprehensive Metabolic Panel 01/04/19 01/05/19 Range/Units 14:20 07:20 Sodium 138 140 (137-145) mmol/L Potassium 4.5 4.6 (3.5-5.1) mmol/L Chloride 108 H 109 H (98-107) mmol/L Carbon Dioxide 20 L 22 (22-30) mmol/L BUN 25 H 28 H (9-20) mg/dL Creatinine 1.28 H 1.36 H (0.66-1.25) mg/dL Glucose 175 H 116 H (74-99) mg/dL Calcium 9.3 8.6 (8.4-10.2) mg/dL AST 25 (17-59) U/L ALT 28 (21-72) U/L Alkaline Phosphatase 122 (38-126) U/L Total Protein 6.8 (6.3-8.2) g/dL Albumin 3.9 (3.5-5.0) g/dL Current Medications Generic Name Dose Route Start Last Admin Trade Name Freq PRN Reason Stop Dose Admin Hydrocodone Bitart/Acetaminophen 1 each 01/04/19 17:[address] 5-325 PO TID PRN Pain Alprazolam 0.25 mg 01/04/19 17:45 Xanax PO TID PRN Anxiety Artificial Tears 1 drops 01/04/19 22:00 01/05/19 08:59 Artificial Tear Drops BOTH EYES 1 drops TID AMY Administration Aspirin 81 mg 01/05/19 09:00 01/05/19 08:59 Aspirin PO 81 mg DAILY AMY Administration Atorvastatin Calcium 80 mg 01/04/19 21:00 01/04/19 21:48 Lipitor PO 80 mg HS AMY Administration Cholecalciferol 1,000 unit 01/05/19 09:00 01/05/19 08:59 Vitamin D3 (25 Mcg = 1000 Iu) PO 1,000 unit DAILY AMY Administration Heparin Sodium (Porcine) 5,000 unit 01/04/19 21:00 01/05/19 08:59 Heparin SQ 5,000 unit Q12HR AMY Administration Sodium Chloride 1,000 mls @ 75 mls/hr 01/04/19 16:00 01/04/19 16:16 Saline 0.9% IV 75 mls/hr .[id number] AMY Administration Piperacillin Sod/Tazobactam 100 mls @ 25 mls/hr 01/04/19 19:00 01/05/19 08:58 Sod 3.375 gm/ Sodium Chloride IVPB 25 mls/hr Q8HR AMY Administration Vancomycin HCl 1,500 mg/ 250 mls @ 125 mls/hr 01/04/19 19:00 01/04/19 20:01 Sodium Chloride IVPB 125 mls/hr Q16H AMY Administration Loratadine 10 mg 01/05/19 09:00 01/05/19 08:59 Claritin PO 10 mg DAILY AMY Administration Naloxone HCl 0.2 mg 01/04/19 15:52 Narcan IV Q2M PRN Opioid Reversal Nitroglycerin 0.4 mg 01/04/19 17:43 Nitrostat SUBLINGUAL Q5M PRN Chest Pain Pantoprazole Sodium 40 mg 01/05/19 07:30 01/05/19 08:58 Protonix PO 40 mg [id number] AMY Administration Temazepam 15 mg 01/04/19 17:45 Restoril PO HS PRN Insomnia Ticagrelor 90 mg 01/04/19 21:00 01/05/19 08:58 Brilinta PO 90 mg BID AMY Administration Intake and Output 01/04/19 01/05/19 01/05/19 22:59 06:59 14:59 Intake Total 75 320 Output Total 100 200 Balance -25 -200 320 Intake: Amount of Fluid Infused ( 75 ml) Oral 320 Output: Urine 100 200 Other: Voiding Method Urinal Urinal 01/05/19 07:25 01/05/19 07:20
[2019-01-05] MEDS: VANCOMYCIN 1,500 MG in SODIUM CHLORIDE 0.9% 250 ML IVPB SCH (13:28)
[2019-01-05] MEDS: LISINOPRIL 2.5 MG TAB PO SCH (13:29)
[2019-01-05] MEDS: SODIUM CHLORIDE 0.9% 1,000 ML IV SCH ×2 (13:30→20:23)
--- NOTE | 2019-01-05 16:24 | US ---
EXAMINATION TYPE: US kidneys/renal and bladder DATE OF EXAM: 01/05/2019 COMPARISON: NONE CLINICAL HISTORY: 83-year-old male UTI, Elevated Cr. TECHNIQUE: Multiple sonographic images of the kidneys and bladder are obtained. FINDINGS: EXAM MEASUREMENTS: Right Kidney: 11.1 x 5.2 x 5.5 cm Left Kidney: 11.1 x 6.2 x 5.7 cm Surgical Corsetier notes:Portable, immobile pt, somewhat difficult exam Right Kidney: Cyst medial= 3.5 x 2.6 x 3.4 cm Left Kidney: Upper and lower pole difficult to visualize No evident hydronephrosis on either side. Bladder: wnl Bilateral Jets seen: No IMPRESSION: No evident hydronephrosis. Technical limitations as above especially in regards to visualizing portio ns of the left kidney. Neither ureteral jet was seen during the course of the exam.
[2019-01-05] MEDS ORDERED: ACETAMINOPHEN TAB 325 MG TAB PO PRN (17:20)
[2019-01-05] MEDS: ATORVASTATIN 80 MG TAB PO SCH (20:22)
--- NOTE | 2019-01-05 22:21 | P.CONS ---
History of Present Illness - Reason for Consult Consult date: 01/05/19 Sepsis and antibiotic recommendation Requesting physician: Ty Lozada - Chief Complaint Weakness and no energy plus fever x 1 day - History of Present Illness Patient is a 83-year-old male brought into the ER at [facility] with a chief complaint of generalized weakness no energy for about 1 day the patient has also been complaining of urine getting more stronger however no difficulty urination burning suprapubic or flank pain the patient did have rigors and chills and on presentation to the hospital did have a fever of 101F, the patient has been diagnosed with a urinary tract infection the patient started on Rocephin and hepatic was subsequently switched over to vancomycin and Zosyn and infectious disease was consulted for further recommendation for antibiotic therapy. The patient continued complaining of feeling weak and tired and no energy the patient denies having headache or URI symptoms but no chest pain shortness of breath or cough no abdominal pain and no diarrhea no joint swelling or any lower extremity redness Review of Systems CONSTITUTIONAL: Positive for weakness. Fever EYES: No complaint. ENT:No complaint. RESPIRATORY: No complaint. CARDIOVASCULAR: No complaint. GENITOURINARY: As per history of present illness. GASTROINTESTINAL: No complaint. MUSCULOSKELETAL: No complaint. INTEGUMENTARY: No complaint. PSYCHOLOGICAL: No complaint. ENDOCRINE: No complaint. NEUROLOGIC: No complaint. 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 Last Myocardial Infarction Date:: 12/09/18 History of Any Multi-Drug Resistant Organisms: None Reported Past Surgical History: Heart Catheterization With Stent, Orthopedic Surgery Additional Past Surgical History / Comment(s): Right ankle fracture Past Anesthesia/Blood Transfusion Reactions: No Reported Reaction Date of Last Stent Placement:: 12/09/18 Past Psychological History: No Psychological Hx Reported Smoking Status: Former smoker Past Alcohol Use History: None Reported Past Drug Use History: None Reported - Past Family History Father History Unknown: Yes Mother History Unknown: Yes Medications and Allergies Home Medications Medication Instructions Recorded Confirmed Type Aspirin EC [Ecotrin Low Dose] 81 mg PO DAILY 11/29/18 01/04/19 History Cholecalciferol [Vitamin D3] 1,000 unit PO DAILY 11/29/18 01/04/19 History HYDROcodone/APAP 5-325MG [[place] 1 tab PO TID PRN 11/29/18 01/04/19 History 5-325] Loratadine [Claritin] 10 mg PO DAILY 11/29/18 01/04/19 History Carboxymethylcellulose Sodium 1 drop BOTH EYES TID 12/09/18 01/04/19 History [Refresh Tears] Atorvastatin [Lipitor] 80 mg PO HS #30 tab 12/12/18 01/04/19 Rx Lisinopril [Zestril] 5 mg PO DAILY #30 tab 12/12/18 01/04/19 Rx Metoprolol Tartrate [Lopressor] 25 mg PO BID #60 tab 12/12/18 01/04/19 Rx Nitroglycerin Sl Tabs [Nitrostat] 0.4 mg SUBLINGUAL Q5M PRN #25 tab 12/12/18 01/04/19 Rx Ticagrelor [Brilinta] 90 mg PO BID #60 tab 12/12/18 01/04/19 Rx Allergies Allergy/AdvReac Type Severity Reaction Status Date / Time No Known Allergies Allergy Verified 01/04/19 14:11 Physical Exam Vitals: Vital Signs Temp Pulse Pulse Resp BP BP Pulse Ox 01/05/19 08:54 98.2 F 84 16 128/70 96 01/05/19 00:37 97.8 F 75 15 105/52 99 01/04/19 19:28 97.4 F L 73 14 102/54 98 01/04/19 18:54 98/58 01/04/19 17:21 83 12 83/43 97 01/04/19 16:17 97 18 99/50 97 01/04/19 15:48 99.1 F 105 H 20 94/56 100 01/04/19 14:12 101.4 F H 122 H 24 166/78 96 Intake and Output 01/04/19 01/05/19 01/05/19 22:59 06:59 14:59 Intake Total 75 320 Output Total 100 200 Balance -25 -200 320 Intake: Amount of Fluid Infused ( 75 ml) Oral 320 Output: Urine 100 200 Other: Voiding Method Urinal Urinal GENERAL DESCRIPTION: Elderly male lying in bed, no distress. No tachypnea or accessory muscle of respiration use. HEENT: Shows Pallor , no scleral icterus. Oral mucous membrane is dry. No pharyngeal erythema or thrush NECK: Trachea central, no thyromegaly. LUNGS: Unlabored breathing. Clear to auscultation anteriorly. No wheeze or crackle. HEART: S1, S2, regular rate and rhythm. No loud murmur ABDOMEN: Soft, no tenderness , guarding or rigidity, no organomegaly EXTREMITIES: No edema of feet. SKIN: No rash, no masses palpable. NEUROLOGICAL: The patient is awake, alert, oriented x3, mood and affect normal. Results CBC & Chem 7: 01/05/19 07:25 01/05/19 07:20 Labs: Abnormal Lab Results - Last 24 Hours (Table) 01/04/19 01/04/19 01/04/19 Range/Units 14:20 14:20 14:20 WBC (3.8-10.6) k/uL RBC (4.30-5.90) m/uL Hgb (13.0-17.5) gm/dL Hct (39.0-53.0) % Plt Count 135 L (150-450) k/uL Neutrophils # (1.3-7.7) k/uL Lymphocytes # 0.4 L (1.0-4.8) k/uL Chloride 108 H (98-107) mmol/L Carbon Dioxide 20 L (22-30) mmol/L BUN 25 H (9-20) mg/dL Creatinine 1.28 H (0.66-1.25) mg/dL Glucose 175 H (74-99) mg/dL Total Bilirubin 1.8 H (0.2-1.3) mg/dL Creatine Kinase 41 L (55-170) U/L Troponin I (0.000-0.034) ng/mL Urine Protein 1+ H (Negative) Urine Blood Moderate H (Negative) Ur Leukocyte Esterase Large H (Negative) Urine RBC >182 H (0-5) /hpf Urine WBC >182 H (0-5) /hpf Urine Bacteria Occasional H (None) /hpf Urine Mucus Rare H (None) /hpf 01/04/19 01/05/19 01/05/19 Range/Units 14:20 07:20 07:25 WBC 13.4 H (3.8-10.6) k/uL RBC 4.07 L (4.30-5.90) m/uL Hgb 11.9 L (13.0-17.5) gm/dL Hct 36.2 L (39.0-53.0) % Plt Count 114 L (150-450) k/uL Neutrophils # 11.9 H (1.3-7.7) k/uL Lymphocytes # 0.6 L (1.0-4.8) k/uL Chloride 109 H (98-107) mmol/L Carbon Dioxide (22-30) mmol/L BUN 28 H (9-20) mg/dL Creatinine 1.36 H (0.66-1.25) mg/dL Glucose 116 H (74-99) mg/dL Total Bilirubin (0.2-1.3) mg/dL Creatine Kinase (55-170) U/L Troponin I 0.058 H* (0.000-0.034) ng/mL Urine Protein (Negative) Urine Blood (Negative) Ur Leukocyte Esterase (Negative) Urine RBC (0-5) /hpf Urine WBC (0-5) /hpf Urine Bacteria (None) /hpf Urine Mucus (None) /hpf Microbiology - Last 24 Hours (Table) 01/04/19 14:20 Blood Culture Gram Stain - Preliminary Blood 01/04/19 14:20 Blood Culture - Final Blood 01/04/19 14:20 Urine Culture - Preliminary Urine,Voided Assessment and Plan Assessment: 1-patient and the hospital with generalized weakness no energy this patient did have fever with chills stronger urine this patient who did have significantly positive UA in addition to fever and elevated white count meeting criteria for SIRS/sepsis now with evidence of gram-negative bacteremia likely secondary to urinary source, in view of recent hospitalization and cardiac stent will need to cover for resistant gram-negative such as Pseudomonas to the likely pathogen (1) Gram-negative bacteremia Current Visit: Yes Status: Acute Code(s): R78.81 - BACTEREMIA SNOMED Code(s): 847673386297 (2) Sepsis Current Visit: Yes Status: Acute Code(s): A41.9 - SEPSIS, UNSPECIFIED ORGANISM SNOMED Code(s): 11718241 (3) Urinary tract infection Current Visit: Yes Status: Acute Code(s): N39.0 - URINARY TRACT INFECTION, SITE NOT SPECIFIED SNOMED Code(s): 86417424 Plan: 1- we will repeat ultrasound of the kidney and the bladder area to make sure no evidence of any hydronephrosis or structure abnormality 2-patient will be treated with Zosyn 3.375 g every 8 while waiting for ID and sensitivity of this gram-negative 3-discontinue the vancomycin as no gram-positive has been seen and to decrease risk of nephrotoxicity We will follow-up on clinical condition and cultures to further adjust medication if needed Thank you for this consultation will follow this patient along with you
[2019-01-06 03:23] VITALS: RESP 16
[2019-01-06] MEDS: PANTOPRAZOLE 40 MG TABLET PO SCH (07:29)
[2019-01-06] MEDS: PIPERACILLIN-TAZOBACTAM 3.375 GM in SODIUM CHLORIDE 0.9% 100 ML IVPB SCH (07:29)
[2019-01-06] MEDS: SODIUM CHLORIDE 0.9% 1,000 ML IV SCH (07:33)
[2019-01-06 07:37] VITALS: BP 172/76; PULSE 83; TEMP 97.7
[2019-01-06] MEDS: CHOLECALCIFEROL 1,000 UNIT TAB PO SCH (08:45)
[2019-01-06] MEDS: TICAGRELOR 90 MG TAB PO SCH (08:45)
[2019-01-06] MEDS: HEPARIN SODIUM,PORCINE 5,000 UNIT/ML 1 ML VIAL SQ SCH (08:46)
[2019-01-06] MEDS: ASPIRIN 81 MG PO SCH (08:46)
[2019-01-06] MEDS: LISINOPRIL 2.5 MG TAB PO SCH (08:46)
[2019-01-06] MEDS: LORATADINE 10 MG TAB PO SCH (08:46)
[2019-01-06] MEDS: ARTIFICIAL TEARS-HYPROMELLOSE DROPS 15 ML BTL BOTH EYES SCH (08:46)
[2019-01-06 09:18] LABS: Basophils % (A) 0 %; Eosinophils # (A) 0.2 k/uL (0-0.7); Eosinophils % (A) 2 %; HCT 37.6 % (39.0-53.0); HGB 12.4 gm/dL (13.0-17.5); Lymphocytes # (A) 0.6 k/uL (1.0-4.8); Lymphocytes % (A) 7 %; MCH 28.8 pg (25.0-35.0); MCV 87.3 fL (80.0-100.0); Mean Platelet Volume 7.7; Monocytes # (A) 0.5 k/uL (0-1.0); Monocytes % (A) 5 %; Neutrophils # (A) 7.6 k/uL (1.3-7.7); Neutrophils % (A) 84 %; Platelet Count 104 k/uL (150-450); RBC 4.31 m/uL (4.30-5.90); RDW 14.1 % (11.5-15.5)
[2019-01-06 09:23] LABS: Calcium 8.6 mg/dL (8.4-10.2)
--- NOTE | 2019-01-06 13:42 | P.DS ---
Providers Date of admission: 01/05/19 13:30 Attending physician: Ty Lozada Consults: 01/04/19 17:42 Consult Physician Routine Consulting Provider: Te Anthony Consult Reason/Comments: cad Do you want consulting provider notified?: Yes 01/04/19 17:43 Consult Physician Routine Consulting Provider: Tre Morrison Consult Reason/Comments: sepsis Do you want consulting provider notified?: Yes Primary care physician: [facility] Hospital Course: 83-year-old very pleasant gentleman is admitted for sepsis secondary which was believed secondary to urinary tract infection that is no evidence of pneumonia at this time. Patient was recently discharged from the hospital about the month and half ago after he was treated for myocardial infarction congestive heart failure exacerbation. Patient is presently not on Lasix his previous ejection fraction is around 35%. Patient has acute renal failure because of which she is receiving IV fluid gentle hydration 50 mL/h Will closely monitor his respiratory status. Patient has minimally elevated troponins secondary to sepsis no evidence of microinfarction clinically are from EKG. Will repeat another set of troponin tomorrow. 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 Baseline creatinine appears to be around 1.1 presently 1.3. 01/06/2019 No overnight events patient is clinically doing well patient is bacteremic had really wanted to repeat blood cultures today and tomorrow want him to stay until tomorrow but patient is not willing to stay since is a blood cultures are positi ve for gram-negative bacilli I do not expect any persistence of bacteremia and patient the is afebrile and white blood cell count has come down discussed with the infectious disease and they're agreeable and discharge and patient was discharged on find it twice a day of ciprofloxacin for 2 weeks for bacteremia follow-up with oncology as an outpatient. Patient has E. coli bacteremia E. coli is pansensitive his creatinine has come down to 1. PHYSICAL EXAMINATION: GENERAL: The patient is alert and oriented x3, not in any acute distress. Well developed, well nourished. HEENT: Pupils are round and equally reacting to light. EOMI. No scleral icterus. No conjunctival pallor. Normocephalic, atraumatic. No pharyngeal erythema. No thyromegaly. CARDIOVASCULAR: S1 and S2 present. No murmurs, rubs, or gallops. PULMONARY: Chest is clear to auscultation, no wheezing or crackles. ABDOMEN: Soft, nontender, nondistended, normoactive bowel sounds. No palpable organomegaly. MUSCULOSKELETAL: No joint swelling or deformity. EXTREMITIES: No cyanosis, clubbing, or pedal edema. NEUROLOGICAL: Gross neurological examination did not reveal any focal deficits. SKIN: No rashes. Assessment and Plan Plan: Sepsis: y secondary to urinary tract infection patient does not appear to have benign prostatic hypertrophic or urinary retention at this time. patient has E. coli bacteremia -Acute renal failure on chronic kidney disease stage II: acute renal failure improved pre renal azotemia -Congestive heart failure chronic systolic dysfunction without any acute exacerbation -Coronary artery disease with recent myocardial infarction . -Hypertension -hyperlipidemia -MINIMAL ELEVATION OF TROPONIN SECONDARY TO SEPSIS Plan - Discharge Summary Discharge Rx Participant: Yes New Discharge Prescriptions: New Ciprofloxacin HCl [Cipro] 500 mg PO Q12H 14 Days #28 tab Continue Cholecalciferol [Vitamin D3 (25 Mcg = 1000 Iu)] 1,000 unit PO DAILY Loratadine [Claritin] 10 mg PO DAILY HYDROcodone/APAP 5-325MG [[place] 5-325] 1 tab PO TID PRN PRN Reason: Pain Aspirin EC [Ecotrin Low Dose] 81 mg PO DAILY Carboxymethylcellulose Sodium [Refresh Tears] 1 drop BOTH EYES TID Ticagrelor [Brilinta] 90 mg PO BID #60 tab Atorvastatin [Lipitor] 80 mg PO HS #30 tab Metoprolol Tartrate [Lopressor] 25 mg PO BID #60 tab Nitroglycerin Sl Tabs [Nitrostat] 0.4 mg SUBLINGUAL Q5M PRN #25 tab PRN Reason: Chest Pain Lisinopril [Zestril] 5 mg PO DAILY #30 tab Discharge Medication List Aspirin EC [Ecotrin Low Dose] 81 mg PO DAILY 11/29/18 [History] Cholecalciferol [Vitamin D3 (25 Mcg = 1000 Iu)] 1,000 unit PO DAILY 11/29/18 [History] HYDROcodone/APAP 5-325MG [[place] 5-325] 1 tab PO TID PRN 11/29/18 [History] Loratadine [Claritin] 10 mg PO DAILY 11/29/18 [History] Carboxymethylcellulose Sodium [Refresh Tears] 1 drop BOTH EYES TID 04/12/19 [History] Atorvastatin [Lipitor] 80 mg PO HS #30 tab 12/12/18 [Rx] Lisinopril [Zestril] 5 mg PO DAILY #30 tab 12/12/18 [Rx] Metoprolol Tartrate [Lopressor] 25 mg PO BID #60 tab 12/12/18 [Rx] Nitroglycerin Sl Tabs [Nitrostat] 0.4 mg SUBLINGUAL Q5M PRN #25 tab 12/12/18 [Rx] Ticagrelor [Brilinta] 90 mg PO BID #60 tab 12/12/18 [Rx] Ciprofloxacin HCl [Cipro] 500 mg PO Q12H 14 Days #28 tab 01/06/19 [Rx] Follow up Appointment(s)/Referral(s): Kendall Ramirez MD [STAFF PHYSICIAN] - 2 Weeks Tre Morrison MD [STAFF PHYSICIAN] - 1 Week [facility] [Primary Care Provider] - 1-2 days Patient Instructions/Handouts: Urinary Tract Infection in Men (DC) Discharge Disposition: HOME WITH HOME HEALTH SERVICES
--- NOTE | 2019-01-06 15:41 | PN ---
PROGRESS NOTE DATE OF SERVICE: 01/06/2019 REASON FOR FOLLOWUP: E coli bacteremia secondary to urinary source. INTERVAL HISTORY: The patient is currently afebrile. He is breathing comfortably. The patient denies having any chest pain or cough. No abdominal pain or any diarrhea. PHYSICAL EXAMINATION: Blood pressure is 172/76 with a pulse of 83, temperature 97.7. He is 99% on room air. General description is an elderly male lying in bed in no distress. RESPIRATORY SYSTEM: Unlabored breathing. Clear to auscultation anteriorly. HEART: S1, S2. Regular rate and rhythm. ABDOMEN: Soft. No tenderness. EXTREMITIES: No edema of the feet. LABS: Hemoglobin 12.4, white count 9.0, BUN of 18, creatinine 1.06. Blood and urine with an E coli sensitive pathogen. Ultrasound negative for any hydronephrosis. DIAGNOSTIC IMPRESSION AND PLAN: Patient with Escherichia coli bacteremia secondary to urinary source. Clinical response to the Rocephin antibiotic was switched over to Cipro 500 mg twice a day for another 12 days to finish course of therapy. Close outpatient followup. Plan of care discussed with the admitting physician. MMRAVENL / DIANAN: [id number] /
[2019-01-07] MEDS ORDERED: LISINOPRIL 5 MG TAB PO SCH (09:00)
== END 2019-01-06 15:01 | disposition home health service (06) | DRG 871 ==
LOC: EC 14:03 → 4SSUR 16:12 → OBSVTOIN 01-05 13:30
PROVIDERS: ADMIT Hospitalist; ATTEND Hospitalist
DX: A41.51 Sepsis due to Escherichia coli [E. coli] (principal); I21.9 Acute myocardial infarction, unspecified; N39.0 Urinary tract infection, site not specified; I50.22 Chronic systolic (congestive) heart failure; N17.9 Acute kidney failure, unspecified; D69.6 Thrombocytopenia, unspecified; I13.0 Hypertensive heart and chronic kidney disease with heart failure and stage 1 through stage 4 chronic kidney disease, or unspecified chronic kidney disease; I95.9 Hypotension, unspecified; E11.22 Type 2 diabetes mellitus with diabetic chronic kidney disease; I25.5 Ischemic cardiomyopathy; I44.7 Left bundle-branch block, unspecified; N18.3 Chronic kidney disease, stage 3 (moderate); R00.0 Tachycardia, unspecified; I25.10 Atherosclerotic heart disease of native coronary artery without angina pectoris; M19.90 Unspecified osteoarthritis, unspecified site; E78.5 Hyperlipidemia, unspecified; Z95.5 Presence of coronary angioplasty implant and graft; Z79.82 Long term (current) use of aspirin; Z79.899 Other long term (current) drug therapy; Z79.02 Long term (current) use of antithrombotics/antiplatelets; Z85.828 Personal history of other malignant neoplasm of skin; Z87.81 Personal history of (healed) traumatic fracture; Z87.891 Personal history of nicotine dependence
CPT/HCPCS: 36415; 71046; 76770; 80048; 80053; 81001; 82550; 83605; 84484; 85025; 85610; 85730; 87040; 87077; 87086; 87186; 93005; 96365; 99291

== ENCOUNTER 2019-02-04 08:02 | Emergency (ER) | payer OTHER, MEDICARE ==
[2019-02-04 08:07] VITALS: BP 144/74; PULSE 97; RESP 16; TEMP 97.5
[2019-02-04] MEDS ORDERED: GELATIN SPONGE,ABSORB (LARGE) 1 EACH SPONGE TOPICAL STA (08:20)
[2019-02-04] MEDS ORDERED: SILVER NITRATE APPLICATOR 1 EACH STICK..EA. TOPICAL STA (08:20)
--- NOTE | 2019-02-04 08:25 | ED ---
Wound/Laceration HPI - General Chief Complaint: Wound/Laceration Stated Complaint: Ear Bleeding Time Seen by Provider: 02/04/19 08:08 Source: patient, RN notes reviewed, old records reviewed Mode of arrival: ambulatory Limitations: no limitations - History of Present Illness Initial Comments: Patient is an 83-year-old male presents emergency department today for evaluation for left ear bleeding. 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 He reports this was done by Dr. Patsy SIEGEL. Patient reports that today he woke up bleeding through his dressing. Patient states that the bleeding has slowed down since he woke up this morning. Patient is not on any blood thinners. He states he follows up with Dr. Valle saw the next week for reevaluation. - Related Data Home Medications Medication Instructions Recorded Confirmed Aspirin EC [Ecotrin Low Dose] 81 mg PO DAILY 11/29/18 01/04/19 Cholecalciferol [Vitamin D3 (25 1,000 unit PO DAILY 11/29/18 01/04/19 Mcg = 1000 Iu)] HYDROcodone/APAP 5-325MG [[place] 1 tab PO TID PRN 11/29/18 01/04/19 5-325] Loratadine [Claritin] 10 mg PO DAILY 11/29/18 01/04/19 Carboxymethylcellulose Sodium 1 drop BOTH EYES TID 12/09/18 01/04/19 [Refresh Tears] Previous Rx's Medication Instructions Recorded Atorvastatin [Lipitor] 80 mg PO HS #30 tab 12/12/18 Lisinopril [Zestril] 5 mg PO DAILY #30 tab 12/12/18 Metoprolol Tartrate [Lopressor] 25 mg PO BID #60 tab 12/12/18 Nitroglycerin Sl Tabs [Nitrostat] 0.4 mg SUBLINGUAL Q5M PRN #25 tab 12/12/18 Ticagrelor [Brilinta] 90 mg PO BID #60 tab 12/12/18 Ciprofloxacin HCl [Cipro] 500 mg PO Q12H 14 Days #28 tab 01/06/19 Allergies Allergy/AdvReac Type Severity Reaction Status Date / Time No Known Allergies Allergy Verified 02/04/19 08:07 Review of Systems ROS Statement: Those systems with pertinent positive or pertinent negative responses have been documented in the HPI. ROS Other: All systems not noted in ROS Statement are negative. 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 Last Myocardial Infarction Date:: 12/09/18 History of Any Multi-Drug Resistant Organisms: None Reported Past Surgical History: Heart Catheterization With Stent, Orthopedic Surgery Additional Past Surgical History / Comment(s): Right ankle fracture Past Anesthesia/Blood Transfusion Reactions: No Reported Reaction Date of Last Stent Placement:: 12/09/18 Past Psychological History: No Psychological Hx Reported Smoking Status: Former smoker Past Alcohol Use History: None Reported Past Drug Use History: None Reported - Past Family History Father History Unknown: Yes Mother History Unknown: Yes General Exam - General Exam Comments Initial Comments: Pleasant 83-year-old male. Alert and oriented. No distress. Limitations: no limitations General appearance: alert, in no apparent distress Head exam: Present: atraumatic, normocephalic, normal inspection Eye exam: Present: normal appearance, PERRL, EOMI. Absent: scleral icterus, conjunctival injection, periorbital swelling ENT exam: Present: normal exam, mucous membranes moist, other (Patient has area of slow bleeding between the sutures over the posterior R Amol. Patient has approximately 8 sutures, with wet Vaseline dressing over the tip of the ear.) Neck exam: Present: normal inspection. Absent: tenderness, meningismus, lymphadenopathy Respiratory exam: Present: normal lung sounds bilaterally. Absent: respiratory distress, wheezes, rales, rhonchi, stridor Cardiovascular Exam: Present: regular rate, normal rhythm, normal heart sounds. Absent: systolic murmur, diastolic murmur, rubs, gallop, clicks GI/Abdominal exam: Present: soft, normal bowel sounds. Absent: distended, tenderness, guarding, rebound, rigid Extremities exam: Present: normal inspection, full ROM, normal capillary refill. Absent: tenderness, pedal edema, joint swelling, calf tenderness Back exam: Present: normal inspection Neurological exam: Present: alert, oriented X3, CN II-XII intact Course Vital Signs 02/04/19 08:03 Temperature 97.5 F L Pulse Rate 97 Respiratory 16 Rate Blood Pressure 144/74 O2 Sat by Pulse 97 Oximetry Procedures - Procedures Initial comment: Patient is an 83-year-old male, with bleeding between the sutures from the left ear. Patient had a portion of left ear removed due to cancerous lesions by Dr. Vogel. Patient's bleed was controlled after a used silver nitrate stick to cauterize the area of small bleed. Patient tolerated procedure well. Hemostasis completed. Patient was wrapped with a sterile gauze dressing afterwards. Medical Decision Making - Medical Decision Making Patient is an 83-year-old male presents presented today for bleeding from the left ear. He had a portion of the removed due to cancer lesions 2 days ago. Patient has some bleeding between the suture sites. Patient here bleed was cauterized with a silver nitrate stick as well as the Gelfoam dressing over top of the area. Patient was then placed in sterile gauze. The ear otherwise appears well. He states he follows up with Dr. Brandon on the next week for suture recheck and removal. Patient advised to return if there is any further bleeding or monitor for any redness or swelling. All questions answered. 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 Remain in the dressing until seen by dermatology. Is patient prescribed a controlled substance at d/c from ED?: No Referrals: [facility],Clinic [Primary Care Provider] - 1-2 days Time of Disposition: 08:25
== END 2019-02-04 09:01 | disposition home or self-care (01) ==
LOC: EC 08:02
DX: L76.22 Postprocedural hemorrhage of skin and subcutaneous tissue following other procedure (principal); H92.22 Otorrhagia, left ear; I10 Essential (primary) hypertension; I25.2 Old myocardial infarction; Z79.82 Long term (current) use of aspirin; Z79.899 Other long term (current) drug therapy; Z95.5 Presence of coronary angioplasty implant and graft; Z87.891 Personal history of nicotine dependence; Z85.828 Personal history of other malignant neoplasm of skin; Z98.890 Other specified postprocedural states
CPT/HCPCS: 99283

== ENCOUNTER → 2019-06-29 | Outpatient (CLI) | payer MEDICARE, OTHER ==
[2019-06-29 19:03] LABS: African American GFR (CKD) 57.7 (60.0-200.0); Anion Gap 8.5 mmol/L (4.00-12.00); Calcium 9.6 mg/dL (8.7-10.3); Carbon Dioxide 25.5 mmol/L (21.6-31.8); Non-African American GFR(CKD) 49.8 (60.0-200.0); Potassium 4.4 mmol/L (3.5-5.5)
== END | disposition home or self-care (01) ==
LOC: LABWHC1 12:07
PROVIDERS: ATTEND Physician Assistant
DX: I42.9 Cardiomyopathy, unspecified (principal)
CPT/HCPCS: 36415; 80048; 83735

== ENCOUNTER → 2019-08-08 | Outpatient (CLI) | payer MEDICARE ==
[2019-08-08 09:44] LABS: HCT 39.8 % (39.0-53.0); MCH 29.4 pg (25.0-35.0); MCHC 32.6 g/dL (31.0-37.0); MCV 90.1 fL (80.0-100.0); Mean Platelet Volume 6.9; Platelet Count 161 k/uL (150-450); Potassium 4.8 mmol/L (3.5-5.1); RBC 4.41 m/uL (4.30-5.90); RDW 13.9 % (11.5-15.5); WBC 6.8 k/uL (3.8-10.6)
== END | disposition home or self-care (01) ==
LOC: LABPAT 08:29
PROVIDERS: ATTEND Internal Medicine Clinical Cardiac Electrophysiology
DX: Z01.812 Encounter for preprocedural laboratory examination (principal); I44.7 Left bundle-branch block, unspecified; I50.9 Heart failure, unspecified
CPT/HCPCS: 36415; 80051; 82565; 82947; 84520; 85027

== ENCOUNTER 2019-08-17 11:29 | Day surgery (SDC) | payer MEDICARE, OTHER ==
[~2019-08-17 11:29] MED LIST: SODIUM CHLORIDE 0.9% 1,000 ML IV SCH; ceFAZolin 1,000 MG in SODIUM CHLORIDE 0.9% IRRIGATIO 250 ML IRRIGATION ONE
[2019-08-17] MEDS ORDERED: SODIUM CHLORIDE 0.9% 1,000 ML IV ONE (12:31)
[2019-08-17] MEDS ORDERED: PROPOFOL 10 MG/ML 20 ML VIAL IV ONE (12:48)
[2019-08-17] MEDS ORDERED: KETAMINE 10 MG/ML 20 ML VIAL ONE (12:48)
[2019-08-17] MEDS ORDERED: MIDAZOLAM 2 MG/2 ML VIAL ONE (12:48)
[2019-08-17] MEDS ORDERED: fentaNYL (PF) 50 MCG/ML 2 ML AMP ONE (12:48)
[2019-08-17] MEDS ORDERED: IOPAMIDOL-370 50ML BTL INJ ONE (13:10)
[2019-08-17] MEDS ORDERED: LIDOCAINE 1% INJ 10MG/ML (20 ML MDV) SQ ONE (13:56)
[2019-08-17] MEDS ORDERED: ACETAMINOPHEN TAB 325 MG TAB PO PRN (15:29)
[2019-08-17] MEDS ORDERED: HYDROcodone/APAP 5-325MG 1 EACH TAB PO PRN (15:29)
--- NOTE | 2019-08-17 15:44 | P.PRLE ---
RE: Brice Ochoa Dear Dr. Heaton Mr. ochoa underwent a biventricular ICD implantation with physiologic septal pacing for the management of severe ischemic cardiomyopathy congestive heart failure with a left bundle branch block pattern on twelve-lead ECG. Hopefully this will improve his heart failure status. He'll continue to follow with you and Dr. Tripp as before Thank you for entrusting me with the care of the patient Warm regards Sincerely Kendall Ramirez
[2019-08-17] MEDS ORDERED: ACETAMINOPHEN IV (For NPO) 1,000 MG in EMPTY BAG 1 BAG IVPB ONE (16:00)
[2019-08-17] MEDS: SODIUM CHLORIDE 0.9% 1,000 ML IV SCH (16:46)
--- NOTE | 2019-08-17 17:28 | PCN ---
PROCEDURE NOTE Mr. Tan is an 84-year-old gentleman with severe ischemic cardiomyopathy with congestive heart failure, class 2, underlying left bundle branch block, severely reduced LV systolic function, on guideline-directed medical treatment. A biventricular ICD was recommended. Patient was brought to the EP lab in a fasting state. Written informed consent was obtained prior to the procedure. The left shoulder area was prepped and draped as per protocol. Lidocaine 1% was used for local anesthesia. A 4 cm incision was made parallel to the deltopectoral groove, about 1.5 cm medial to it. The incision was carried down to the level of the pectoralis muscle. A subfascial pocket was made. Hemostasis was assured. The left axillary vein was accessed at 3 separate points under fluoroscopy, and via appropriately-sized introducer sheaths, 3 leads were positioned. The atrial lead was a model number 5076, 52 cm in length and serial number [id number]. This was screwed into the right atrial appendage. P waves were 3.8 mV, pacing impedance 737 ohms, pacing threshold 1.2 V at 0.5 milliseconds. Ten-volt test was negative. The RV lead was a single-coil ICD lead, DF4 Medtronic model number 6935M, 62 cm in length and serial number [id number]. This was positioned in the RV apex. R-waves 15.7 mV, pacing impedance 649 ohms, pacing threshold 0.5 V at 0.5 milliseconds. Ten-volt test was negative. A Medtronic model number 3830 lead was screwed in the His bundle area for physiologic septal pacing. This resulted in normalization and narrowing to a QRS width of around 90 milliseconds. This was a 69 cm lead, serial number [id number]. Selective pacing was noted with widening of the QRS with a left bundle branch block pattern at about 2 mV at 1 millisecond and complete loss of capture 0.9 V at 1 millisecond. Pacing impedance of 514 ohms. All leads were secured to the underlying pectoralis fascia using 2 nonabsorbable sutures. Pocket was irrigated antibiotic solution. Leads were connected to the generator (Medtronic biventricular ICD Amplia MRI DF4, model number DTMB 1D4, serial number [id number]. The leads and the generator were then placed in the subfascial pocket and the wound was closed in 3 layers and dressed per protocol. The device was secured to the underlying pectoralis muscle. RESULT: Successful biventricular ICD implantation for management of congestive heart failure and chronic systolic dysfunction and underlying left bundle branch block with severe LV dysfunction on guideline-directed medical treatment. The device was then programmed at DDD at 50 bpm with physiologic septal pacing. Three ventricular tachyarrhythmia zones were programmed with appropriate antitachycardia pacing, cardioversion and defibrillation. MMODL / IJN: [id number] /
[2019-08-17] MEDS: METOPROLOL TARTRATE 50 MG TAB PO SCH (20:00)
[2019-08-17] MEDS ORDERED: ATORVASTATIN 80 MG TAB PO SCH (21:00)
[2019-08-18] MEDS: SODIUM CHLORIDE 0.9% 1,000 ML IV SCH (03:57)
[2019-08-18 08:12] VITALS: RESP 18
--- NOTE | 2019-08-18 08:46 | XR ---
EXAMINATION TYPE: XR chest 2V DATE OF EXAM: 08/18/2019 COMPARISON: 01/04/2019 HISTORY: Shortness of breath TECHNIQUE: Frontal and lateral views of the chest are obtained. FINDINGS: Pacer device is noted be in place with distal leads within the right atrium and right ventricle respe ctively. No evidence for pneumothorax. Scattered senescent parenchymal changes noted. Hyperinflation compatible with COPD. No evidence for infiltrate. No evidence for atelectasis. Heart size is stable. Mediastinal structures are stable and grossly unremarkable. No evidence for hilar prominence. Degenerative changes dorsal spine. IMPRESSION: 1. No evidence for acute pulmonary disease.
[2019-08-18] MEDS: METOPROLOL TARTRATE 50 MG TAB PO SCH (08:58)
[2019-08-18] MEDS ORDERED: LORATADINE 10 MG TAB PO SCH (09:00)
[2019-08-18] MEDS ORDERED: LISINOPRIL 5 MG TAB PO SCH (09:00)
[2019-08-18] MEDS ORDERED: ASPIRIN 81 MG PO SCH (09:00)
[2019-08-18] MEDS ORDERED: CLOPIDOGREL 75 MG TAB PO SCH (09:00)
[2019-08-18 12:14] VITALS: BP 110/61; PULSE 50; TEMP 97.6
--- NOTE | 2019-08-18 13:23 | P.DS ---
Providers Attending physician: Kendall Ramirez Primary care physician: [facility] Course: Patient is ablating in the hallways. He is doing well. Minimal hematoma Looks very comfortable Breath sounds are clear no rhonchi no crackles Air entry is equal bilaterally Normal heart sounds normal S1 normal S2 no S3 gallop Abdomen is soft Impression Severe ischemic cardiomyopathy, left bundle branch block, congestive heart failure, systolic, chronic, status post biventricular ICD, His bundle TELEPHONE LINES REPAIRER Device is functioning normally Chest x-ray is normal Plan Patient go home today on his home medications and follow with the device clinic and Dr. Tripp within 5-7 days Plan - Discharge Summary Discharge Rx Participant: Yes New Discharge Prescriptions: New RX: Metoprolol Tartrate [Lopressor] 50 mg PO BID #180 tab Discontinued RX: Metoprolol Tartrate [Lopressor] 25 mg PO BID #60 tab No Action RX: Cholecalciferol [Vitamin D3 (25 Mcg = 1000 Iu)] 1,000 unit PO DAILY RX: Loratadine [Claritin] 10 mg PO DAILY RX: HYDROcodone/APAP 5-325MG [[place] 5-325] 1 tab PO TID PRN PRN Reason: Pain RX: Aspirin EC [Ecotrin Low Dose] 81 mg PO DAILY RX: Atorvastatin [Lipitor] 80 mg PO HS #30 tab RX: Nitroglycerin Sl Tabs [Nitrostat] 0.4 mg SUBLINGUAL Q5M PRN #25 tab PRN Reason: Chest Pain RX: Lisinopril [Zestril] 5 mg PO DAILY #30 tab Clopidogrel [Plavix] 75 mg PO DAILY Discharge Medication List RX: Aspirin EC [Ecotrin Low Dose] 81 mg PO DAILY 11/29/18 [History] RX: Cholecalciferol [Vitamin D3 (25 Mcg = 1000 Iu)] 1,000 unit PO DAILY 11/29/18 [History] RX: HYDROcodone/APAP 5-325MG [[place] 5-325] 1 tab PO TID PRN 11/29/18 [History] RX: Loratadine [Claritin] 10 mg PO DAILY 11/29/18 [History] RX: Atorvastatin [Lipitor] 80 mg PO HS #30 tab 12/12/18 [Rx] RX: Lisinopril [Zestril] 5 mg PO DAILY #30 tab 12/12/18 [Rx] RX: Nitroglycerin Sl Tabs [Nitrostat] 0.4 mg SUBLINGUAL Q5M PRN #25 tab 12/12/18 [Rx] Clopidogrel [Plavix] 75 mg PO DAILY 08/15/19 [History] RX: Metoprolol Tartrate [Lopressor] 50 mg PO BID #180 tab 08/17/19 [Rx] Follow up Appointment(s)/Referral(s): Juan Jose Tripp MD [STAFF PHYSICIAN] - 1 Week (Follow-up with the device clinic in one week Follow up with Dr. Tripp/crystal was previously scheduled or in three-months) Patient Instructions/Handouts: Pacemaker (DC) Activity/Diet/Wound Care/Special Instructions: PATIENT EDUCATION MATERIAL Instructions following a heart rhythm device implant. 1. Keep dressing DRY for 5 DAYS. You may cover the area with Saran or Cling Wrap, prior to a shower. 2. The dressing will be removed in the Device Clinic at [facility]. Absorbable sutures were used to close the wound. 3. Avoid raising the left arm above the shoulder level. 4 week restriction 4. Avoid arm movements, like backscratching, rubbing the head, or pulling on a cord. 4 weeks restriction 5. Gentle range of motion movements of the shoulder, closest to the incision should be performed to avoid a frozen shoulder. (Pendulum exercises of the shoulder) 6. The opposite arm may be used freely. 7. Avoid driving for 7 days. 8. Avoid activities such as golfing, swimming, weed whacking, lifting more than 10 pounds weight, bowling, gymnastics and weight training/lifting. (6 weeks restriction) 9. Activities such as wood chopping with an axe, pull-ups in the gymnasium, power lifting, arc-welding, being close to home induction cooktops will always be a problem. 10. Arm sling is only a reminder not to raise the arm above the head. You do not need to keep the arm completely immobilized. Your free to move the arm and use it and for normal activities. In case of any problems, please call [facility], [facility]ne, @ [phone], Attention: Device Clinic Device clinic follow-up in 5 days Follow-up with primary mark up designer in 2-3 months Increase metoprolol titrate 50 mg twice a day Discharge Disposition: HOME SELF-CARE
[2019-08-18 14:40] VITALS: BMI 24.3
== END 2019-08-18 15:18 | disposition home or self-care (01) ==
LOC: CATHEP 11:29 → 1SOBS 15:24 → CATHEP 08-18 15:18
PROVIDERS: ATTEND Internal Medicine Clinical Cardiac Electrophysiology
DX: I25.5 Ischemic cardiomyopathy (principal); I44.7 Left bundle-branch block, unspecified; Z87.891 Personal history of nicotine dependence; I11.0 Hypertensive heart disease with heart failure; I50.22 Chronic systolic (congestive) heart failure; E78.5 Hyperlipidemia, unspecified; Z82.49 Family history of ischemic heart disease and other diseases of the circulatory system; N28.9 Disorder of kidney and ureter, unspecified; E11.9 Type 2 diabetes mellitus without complications; H91.90 Unspecified hearing loss, unspecified ear; Z85.828 Personal history of other malignant neoplasm of skin; Z97.2 Presence of dental prosthetic device (complete) (partial); Z79.02 Long term (current) use of antithrombotics/antiplatelets; Z79.82 Long term (current) use of aspirin; Z79.899 Other long term (current) drug therapy
CPT/HCPCS: 33225; 33249; 71046; C1769 ×4; C1892 ×2; C1730; C1898; C1895; C1882; J2250; J0690 ×2; J2001; J3010; J2704; Q9967

== ENCOUNTER 2019-09-30 23:04 | Emergency (ER) | payer MEDICARE ==
[2019-09-30] MEDS ORDERED: SODIUM CHLORIDE 0.9% 1,000 ML IV STA (23:41)
[2019-09-30 23:53] LABS: Basophils # (A) 0.1 k/uL (0-0.2); Basophils % (A) 2 %; Eosinophils # (A) 0.3 k/uL (0-0.7); Eosinophils % (A) 4 %; HCT 42.9 % (39.0-53.0); HGB 13.7 gm/dL (13.0-17.5); Lymphocytes # (A) 1.1 k/uL (1.0-4.8); Lymphocytes % (A) 14 %; MCHC 31.9 g/dL (31.0-37.0); MCV 90.9 fL (80.0-100.0); Mean Platelet Volume 7.7; Monocytes # (A) 0.4 k/uL (0-1.0); Monocytes % (A) 5 %; Neutrophils # (A) 5.8 k/uL (1.3-7.7); Neutrophils % (A) 75 %; Platelet Count 150 k/uL (150-450); RBC 4.72 m/uL (4.30-5.90); RDW 13.4 % (11.5-15.5); WBC 7.8 k/uL (3.8-10.6)
--- NOTE | 2019-10-01 00:09 | XR ---
EXAMINATION TYPE: XR soft tissue neck DATE OF EXAM: 10/01/2019 COMPARISON: NONE HISTORY: Foreign body sensation TECHNIQUE: 2 views FINDINGS: Epiglottis appears normal. There is calcified thyroid cartilage. There is spurring in the c ervical spine. I see no evidence of radiopaque foreign body. Subglottic trachea appears normal. Tonsi ls and adenoids appear normal. IMPRESSION: Negative cervical soft tissue exam.
[2019-10-01 00:10] LABS: Albumin 4.8 g/dL (3.5-5.0); Calcium 9.9 mg/dL (8.4-10.2); Potassium 4.2 mmol/L (3.5-5.1); Total Bilirubin 0.6 mg/dL (0.2-1.3)
--- NOTE | 2019-10-01 00:10 | XR ---
EXAMINATION TYPE: XR chest 2V DATE OF EXAM: 10/01/2019 COMPARISON: 08/18/2019 HISTORY: Difficulty breathing TECHNIQUE: FINDINGS: Heart is normal. Lungs are clear of infiltrate. There is left axillary pacemaker. There is some arthritic change in the shoulder joints. There is no heart failure. There is no pleural effusion . Bony thorax is intact. IMPRESSION: No active cardiopulmonary disease. Normal heart. No change.
[2019-10-01 00:12] LABS: INR 0.9 (<1.2); Partial Thromboplastin Time 22.3 sec (22.0-30.0); Prothrombin Time 9.8 sec (9.0-12.0)
--- NOTE | 2019-10-01 00:50 | ED ---
ENT HPI - General Chief complaint: ENT Stated complaint: Food in throat Time Seen by Provider: 09/30/19 23:12 Source: family Mode of arrival: ambulatory Limitations: no limitations - History of Present Illness Initial comments: Brice an 84-year-old male presents the ER for evaluation of foreign body sensation in his throat. Patient reports that approximately 4 hours prior to arrival he was eating ribs when he felt like something stuck in his throat. He's been able to tolerate oral secretions and drink liquids since then but states that he feels like something is just stuck in his lower throat her upper chest and he cannot breathe. Patient denies any coughing or vomiting. Patient also expresses concern that he is having trouble breathing because his son is just returned from [place]. Son was not in the [facility] the [facility], son has not been ill or had fevers since return. Son has visited him twice since returning 10 days ago - Related Data Home Medications Medication Instructions Recorded Confirmed Aspirin EC [Ecotrin Low Dose] 81 mg PO DAILY 11/29/18 08/17/19 Cholecalciferol [Vitamin D3 (25 1,000 unit PO DAILY 11/29/18 08/17/19 Mcg = 1000 Iu)] HYDROcodone/APAP 5-325MG [Pool 1 tab PO TID PRN 11/29/18 08/17/19 5-325] Loratadine [Claritin] 10 mg PO DAILY 11/29/18 08/17/19 Clopidogrel [Plavix] 75 mg PO DAILY 08/15/19 08/17/19 Previous Rx's Medication Instructions Recorded Atorvastatin [Lipitor] 80 mg PO HS #30 tab 12/12/18 Lisinopril [Zestril] 5 mg PO DAILY #30 tab 12/12/18 Nitroglycerin Sl Tabs [Nitrostat] 0.4 mg SUBLINGUAL Q5M PRN #25 tab 12/12/18 Metoprolol Tartrate [Lopressor] 50 mg PO BID #180 tab 08/17/19 Allergies Allergy/AdvReac Type Severity Reaction Status Date / Time No Known Allergies Allergy Verified 09/30/19 23:11 Review of Systems ROS Statement: Those systems with pertinent positive or pertinent negative responses have been documented in the HPI. ROS Other: All systems not noted in ROS Statement are negative. 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 Last Myocardial Infarction Date:: 12/09/18 History of Any Multi-Drug Resistant Organisms: None Reported Past Surgical History: Heart Catheterization With Stent, Orthopedic Surgery, Pacemaker Additional Past Surgical History / Comment(s): Right ankle fracture Past Anesthesia/Blood Transfusion Reactions: No Reported Reaction Date of Last Stent Placement:: 12/09/18 Past Psychological History: No Psychological Hx Reported Smoking Status: Former smoker Past Alcohol Use History: None Reported Past Drug Use History: None Reported - Past Family History Father History Unknown: Yes Mother History Unknown: Yes General Exam - General Exam Comments Initial Comments: Physical Exam GENERAL: Patient is well-developed and well-nourished. Patient is nontoxic and well-hydrated and is in no distress. HENT: Normocephalic, Atraumatic. Tolerating oral secretions EYES: PERRL, EOMI PULMONARY: Unlabored respirations. No audible rales rhonchi or wheezing was noted. CARDIOVASCULAR: RRR ABDOMEN: Soft and nontender with normal bowel sounds. SKIN: Skin is clear with no lesions or rashes and otherwise unremarkable. : Deferred NEUROLOGIC: Patient is alert and oriented x3. Moving all extremities spontaneously MUSCULOSKELETAL: Normal extremities with adequate strength and full range of motion. No lower extremity swelling or edema. No calf tenderness. PSYCHIATRIC: Normal psychiatric evaluation. Limitations: no limitations Course Vital Signs 09/30/19 09/30/19 09/30/19 23:08 23:35 23:48 Temperature 97.7 F 97.4 F L Pulse Rate 60 65 Pulse Rate [ Archival Studies Professor ] Respiratory 20 22 20 Rate Blood Pressure 180/85 161/76 O2 Sat by Pulse 95 98 Oximetry 09/30/19 10/01/19 23:50 01:13 Temperature 97.9 F Pulse Rate 65 Pulse Rate [ 64 Archival Studies Professor ] Respiratory 18 Rate Blood Pressure 179/86 O2 Sat by Pulse 99 Oximetry Medical Decision Making - Medical Decision Making The patient was seen and evaluated history was obtained from patient history and physical exam are unremarkable Per CDC recommendations the patient isn't no risk for normal coronavirus as his son who traveled to [place] has not been feverish or ill and is not under investigation for Coronavirus As and imaging were ordered, during evaluation the patient did have a coughing fit and then vomited an approximately quarter size chunk of what appeared to be meat which patient reports he believes was the ribs he had been eating. Patient reported resolution of the feeling that he couldn't breathe or that something was stuck in a after this. Chest x-ray resulted with No acute findings EKG was nonischemic Labs at baseline Labs and imaging an EKG findings were discussed with the patient who is eager for discharge home as his sensations of completely resolved is feeling well now. - Lab Data Result diagrams: 09/30/19 23:41 09/30/19 23:41 Lab Results 09/30/19 09/30/19 09/30/19 Range/Units 23:41 23:41 23:41 WBC 7.8 (3.8-10.6) k/uL RBC 4.72 (4.30-5.90) m/uL Hgb 13.7 (13.0-17.5) gm/dL Hct 42.9 (39.0-53.0) % MCV 90.9 (80.0-100.0) fL MCH 29.0 (25.0-35.0) pg MCHC 31.9 (31.0-37.0) g/dL RDW 13.4 (11.5-15.5) % Plt Count 150 (150-450) k/uL Neutrophils % 75 % Lymphocytes % 14 % Monocytes % 5 % Eosinophils % 4 % Basophils % 2 % Neutrophils # 5.8 (1.3-7.7) k/uL Lymphocytes # 1.1 (1.0-4.8) k/uL Monocytes # 0.4 (0-1.0) k/uL Eosinophils # 0.3 (0-0.7) k/uL Basophils # 0.1 (0-0.2) k/uL PT (9.0-12.0) sec INR (<1.2) APTT (22.0-30.0) sec Sodium 143 (137-145) mmol/L Potassium 4.2 (3.5-5.1) mmol/L Chloride 108 H (98-107) mmol/L Carbon Dioxide 24 (22-30) mmol/L Anion Gap 11 mmol/L BUN 27 H (9-20) mg/dL Creatinine 1.35 H (0.66-1.25) mg/dL Est GFR (CKD-EPI)AfAm 55 (>60 ml/min/1.73 sqM) Est GFR (CKD-EPI)NonAf 48 (>60 ml/min/1.73 sqM) Glucose 133 H (74-99) mg/dL Calcium 9.9 (8.4-10.2) mg/dL Total Bilirubin 0.6 (0.2-1.3) mg/dL AST 26 (17-59) U/L ALT 18 (4-49) U/L Alkaline Phosphatase 140 H (38-126) U/L Troponin I (0.000-0.034) ng/mL NT-Pro-B Natriuret Pep 1040 pg/mL Total Protein 8.0 (6.3-8.2) g/dL Albumin 4.8 (3.5-5.0) g/dL 09/30/19 09/30/19 Range/Units 23:41 23:41 WBC (3.8-10.6) k/uL RBC (4.30-5.90) m/uL Hgb (13.0-17.5) gm/dL Hct (39.0-53.0) % MCV (80.0-100.0) fL MCH (25.0-35.0) pg MCHC (31.0-37.0) g/dL RDW (11.5-15.5) % Plt Count (150-450) k/uL Neutrophils % % Lymphocytes % % Monocytes % % Eosinophils % % Basophils % % Neutrophils # (1.3-7.7) k/uL Lymphocytes # (1.0-4.8) k/uL Monocytes # (0-1.0) k/uL Eosinophils # (0-0.7) k/uL Basophils # (0-0.2) k/uL PT 9.8 (9.0-12.0) sec INR 0.9 (<1.2) APTT 22.3 (22.0-30.0) sec Sodium (137-145) mmol/L Potassium (3.5-5.1) mmol/L Chloride (98-107) mmol/L Carbon Dioxide (22-30) mmol/L Anion Gap mmol/L BUN (9-20) mg/dL Creatinine (0.66-1.25) mg/dL Est GFR (CKD-EPI)AfAm (>60 ml/min/1.73 sqM) Est GFR (CKD-EPI)NonAf (>60 ml/min/1.73 sqM) Glucose (74-99) mg/dL Calcium (8.4-10.2) mg/dL Total Bilirubin (0.2-1.3) mg/dL AST (17-59) U/L ALT (4-49) U/L Alkaline Phosphatase (38-126) U/L Troponin I 0.021 (0.000-0.034) ng/mL NT-Pro-B Natriuret Pep pg/mL Total Protein (6.3-8.2) g/dL Albumin (3.5-5.0) g/dL - EKG Data -: EKG Interpreted by Me EKG Comments: EKG was obtained due to complaint of shortness of breath EKG was obtained at 2329, rate is 61 rhythm is paced, normal axis, [place] 128 QRS 92 QTc [address] elevations mild ST depressions laterally. When compared to EKG obtained in December of last year the paced rhythm is new left bundle-branch block has resolved Disposition Clinical Impression: Esophageal obstruction due to food impaction Disposition: HOME SELF-CARE Condition: Stable Instructions (If sedation given, give patient instructions): Esophageal Foreign Body (ED) Is patient prescribed a controlled substance at d/c from ED?: No Referrals: Juan Heaton MD [Primary Care Provider] - 1-2 days Lizz French MD [STAFF PHYSICIAN] - 1-2 days
[2019-10-01 01:14] VITALS: BP 179/86; PULSE 65; RESP 18; TEMP 97.9
== END 2019-10-01 01:15 | disposition home or self-care (01) ==
LOC: EC 23:04
DX: K22.2 Esophageal obstruction (principal); T18.128A Food in esophagus causing other injury, initial encounter; I10 Essential (primary) hypertension; I25.2 Old myocardial infarction; Z79.82 Long term (current) use of aspirin; Z79.02 Long term (current) use of antithrombotics/antiplatelets; Z79.899 Other long term (current) drug therapy; Z87.891 Personal history of nicotine dependence; Z95.0 Presence of cardiac pacemaker
CPT/HCPCS: 36415; 70360; 71046; 80053; 83880; 84484; 85025; 85610; 85730; 93005; 96360; 99284

== ENCOUNTER 2019-12-31 08:12 | Inpatient (IN) | payer OTHER, MEDICARE ==
[2019-12-31 08:20] LABS: Glucose,Whole Blood 145 mg/dL (75-99)
--- NOTE | 2019-12-31 08:43 | ED ---
General Adult HPI - General Chief complaint: Weakness Stated complaint: AMS Time Seen by Provider: 12/31/19 08:24 Source: EMS Mode of arrival: EMS Limitations: no limitations - History of Present Illness Initial comments: Dictation was produced using [email or web address] dictation software. please excuse any grammatical, word or spelling errors. This patient was cared for during a federal and state declared state of emergency secondary to Covid 19 Chief Complaint: 84-year-old male presents with slurred speech, confusion and generalized weakness History of Present Illness: 84-year-old male presents today via EMS. Was at home. He was allegedly found on the ground at home. According to EMS who received report from family over the last 3-4 days he's been having worsening slurred speech and weakness. Patient is a poor historian at this time. It is unclear if patient has history of dementia. Patient states he feels well. There is concern that patient had fallen so EMS had placed a c-collar. PHYSICAL EXAM: General Impression: Alert and oriented x2/4, not in acute distress, confused HEENT: Normocephalic atraumatic, extra-ocular movements intact, pupils equal and reactive to light bilaterally, mucous membranes moist. Cardiovascular: Heart regular rate and rhythm Chest: Able to complete full sentences, no retractions, no tachypnea Abdomen: abdomen soft, non-tender, non-distended, no organomegaly Musculoskeletal: Pulses present and equal in all extremities, no peripheral edema Motor: no focal deficits noted Neurological: CN II-XII grossly intact, confused, intermittent follow commands, mildly dysarthric, mildly aphasic Skin: Intact with no visualized rashes Psych: Normal affect and mood ED course: 84-year-old male presents with slurred speech, weakness, confusion. Last known normal coronary to EMS was 3-4 days ago. According EMS they also report that his symptoms have been progressive. Vital signs upon arrival are within acceptable limits. Patient's symptoms are concerning for CVA. Patient continues to be a candidate secondary to history of EMS of last known normal reported 3-4 days ago.Laboratory evaluation obtained. CBC is unremarkable. Coag panel is unremarkable. Metabolic panel shows findings to suggest mild acute kidney injury. He does have BUN of 57. There is an anion gap acidosis. No lactic acidosis. Troponin is 0.219 with a creatinine kinase of 257. Urinalysis is unremarkable. Coronavirus test is negative. No coronavirus. Chest x-ray shows no active intrathoracic disease. Pelvis x-ray shoulder x- rayed elbow x-ray is unremarkable. Computed tomography scan of the head and C-spine is nonacute. At this point patient has elevated troponin. He does have some mild confusion however this is likely patient's baseline. Patient reevaluated at bedside. He is more alert. I believe considering his metabolic derangement perhaps patient's confusion is secondary to uremia. His elevated troponin however is not very clear. He does have extensive history of coronary artery disease. Patient treated with heparin. Perhaps his troponin is elevated from acute kidney injury. Patient given aspirin. Patient be admitted to Dr. Mendoza. Cardiology and neurology on consultation. EKG interpretation: Ventricular rate 71, ventricular paced rhythm, QRS 126, QTC 497. No DE prolongation, no QTC prolongation, no ST or T-wave changes noted. . Overall, this EKG is unremarkable - Related Data Home Medications Medication Instructions Recorded Confirmed Aspirin EC [Ecotrin Low Dose] 81 mg PO DAILY 11/29/18 08/17/19 Cholecalciferol [Vitamin D3 (25 1,000 unit PO DAILY 11/29/18 08/17/19 Mcg = 1000 Iu)] HYDROcodone/APAP 5-325MG [[place] 1 tab PO TID PRN 11/29/18 08/17/19 5-325] Loratadine [Claritin] 10 mg PO DAILY 11/29/18 08/17/19 Clopidogrel [Plavix] 75 mg PO DAILY 08/15/19 08/17/19 Previous Rx's Medication Instructions Recorded Atorvastatin [Lipitor] 80 mg PO HS #30 tab 12/12/18 Lisinopril [Zestril] 5 mg PO DAILY #30 tab 12/12/18 Nitroglycerin Sl Tabs [Nitrostat] 0.4 mg SUBLINGUAL Q5M PRN #25 tab 12/12/18 Metoprolol Tartrate [Lopressor] 50 mg PO BID #180 tab 08/17/19 Allergies Allergy/AdvReac Type Severity Reaction Status Date / Time No Known Allergies Allergy Verified 09/30/19 23:11 Review of Systems ROS Statement: Those systems with pertinent positive or pertinent negative responses have been documented in the HPI. ROS Other: All systems not noted in ROS Statement are negative. 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 Last Myocardial Infarction Date:: 12/09/18 History of Any Multi-Drug Resistant Organisms: None Reported Past Surgical History: Heart Catheterization With Stent, Orthopedic Surgery, Pacemaker Additional Past Surgical History / Comment(s): Right ankle fracture Past Anesthesia/Blood Transfusion Reactions: No Reported Reaction Date of Last Stent Placement:: 12/09/18 Past Psychological History: No Psychological Hx Reported Smoking Status: Former smoker Past Alcohol Use History: None Reported Past Drug Use History: None Reported - Past Family History Father History Unknown: Yes Mother History Unknown: Yes General Exam Limitations: no limitations Course Vital Signs 12/31/19 12/31/19 12/31/19 08:18 08:37 08:45 Temperature 97.9 F 97.8 F 97.8 F Pulse Rate 71 71 71 Respiratory 18 18 18 Rate Blood Pressure 145/70 145/70 145/70 O2 Sat by Pulse 98 98 98 Oximetry 12/31/19 12/31/19 12/31/19 09:00 09:15 09:30 Temperature 97.8 F 97.8 F 97.8 F Pulse Rate 71 71 71 Respiratory 18 18 18 Rate Blood Pressure 145/70 145/70 145/70 O2 Sat by Pulse 98 98 98 Oximetry 12/31/19 12/31/19 12/31/19 09:45 09:49 09:55 Temperature 97.8 F Pulse Rate 71 79 73 Respiratory 18 18 18 Rate Blood Pressure 145/70 137/67 147/80 O2 Sat by Pulse 98 98 98 Oximetry 12/31/19 11:03 Temperature Pulse Rate 68 Respiratory 18 Rate Blood Pressure 150/76 O2 Sat by Pulse 98 Oximetry Medical Decision Making - Lab Data Result diagrams: 12/31/19 08:28 12/31/19 08:28 Lab Results 12/31/19 12/31/19 12/31/19 Range/Units 08:19 08:28 08:28 WBC 9.4 (3.8-10.6) k/uL RBC 4.38 (4.30-5.90) m/uL Hgb 13.0 (13.0-17.5) gm/dL Hct 38.8 L (39.0-53.0) % MCV 88.4 (80.0-100.0) fL MCH 29.7 (25.0-35.0) pg MCHC 33.6 (31.0-37.0) g/dL RDW 13.7 (11.5-15.5) % Plt Count 118 L (150-450) k/uL Neutrophils % 86 % Lymphocytes % 6 % Monocytes % 7 % Eosinophils % 1 % Basophils % 0 % Neutrophils # 8.2 H (1.3-7.7) k/uL Lymphocytes # 0.5 L (1.0-4.8) k/uL Monocytes # 0.6 (0-1.0) k/uL Eosinophils # 0.0 (0-0.7) k/uL Basophils # 0.0 (0-0.2) k/uL PT 10.5 (9.0-12.0) sec INR 1.0 (<1.2) APTT 24.3 (22.0-30.0) sec Sodium (137-145) mmol/L Potassium (3.5-5.1) mmol/L Chloride (98-107) mmol/L Carbon Dioxide (22-30) mmol/L Anion Gap mmol/L BUN (9-20) mg/dL Creatinine (0.66-1.25) mg/dL Est GFR (CKD-EPI)AfAm (>60 ml/min/1.73 sqM) Est GFR (CKD-EPI)NonAf (>60 ml/min/1.73 sqM) Glucose (74-99) mg/dL POC Glucose (mg/dL) 145 H (75-99) mg/dL POC Glu Fur Tinter ID Cheryl Cartagena Plasma Lactic Acid Juan F (0.7-2.0) mmol/L Calcium (8.4-10.2) mg/dL Magnesium (1.6-2.3) mg/dL Total Bilirubin (0.2-1.3) mg/dL AST (17-59) U/L ALT (4-49) U/L Alkaline Phosphatase (38-126) U/L Ammonia (<30) umol/L Creatine Kinase (55-170) U/L Troponin I (0.000-0.034) ng/mL NT-Pro-B Natriuret Pep pg/mL Total Protein (6.3-8.2) g/dL Albumin (3.5-5.0) g/dL Urine Color Urine Appearance (Clear) Urine pH (5.0-8.0) Ur Specific [place] (1.001-1.035) Urine Protein (Negative) Urine Glucose (UA) (Negative) Urine Ketones (Negative) Urine Blood (Negative) Urine Nitrite (Negative) Urine Bilirubin (Negative) Urine Urobilinogen (<2.0) mg/dL Ur Leukocyte Esterase (Negative) Stool Occult Blood (Negative) Serum Alcohol mg/dL Coronavirus (PCR) (Not Detectd) 12/31/19 12/31/19 12/31/19 Range/Units 08:28 08:28 08:28 WBC (3.8-10.6) k/uL RBC (4.30-5.90) m/uL Hgb (13.0-17.5) gm/dL Hct (39.0-53.0) % MCV (80.0-100.0) fL MCH (25.0-35.0) pg MCHC (31.0-37.0) g/dL RDW (11.5-15.5) % Plt Count (150-450) k/uL Neutrophils % % Lymphocytes % % Monocytes % % Eosinophils % % Basophils % % Neutrophils # (1.3-7.7) k/uL Lymphocytes # (1.0-4.8) k/uL Monocytes # (0-1.0) k/uL Eosinophils # (0-0.7) k/uL Basophils # (0-0.2) k/uL PT (9.0-12.0) sec INR (<1.2) APTT (22.0-30.0) sec Sodium 141 (137-145) mmol/L Potassium 4.3 (3.5-5.1) mmol/L Chloride 105 (98-107) mmol/L Carbon Dioxide 19 L (22-30) mmol/L Anion Gap 17 mmol/L BUN 57 H (9-20) mg/dL Creatinine 1.98 H (0.66-1.25) mg/dL Est GFR (CKD-EPI)AfAm 35 (>60 ml/min/1.73 sqM) Est GFR (CKD-EPI)NonAf 30 (>60 ml/min/1.73 sqM) Glucose 140 H (74-99) mg/dL POC Glucose (mg/dL) (75-99) mg/dL POC Glu Fur Tinter ID Plasma Lactic Acid Juan F 1.4 (0.7-2.0) mmol/L Calcium 9.6 (8.4-10.2) mg/dL Magnesium 2.3 (1.6-2.3) mg/dL Total Bilirubin 0.7 (0.2-1.3) mg/dL AST 27 (17-59) U/L ALT 12 (4-49) U/L Alkaline Phosphatase 103 (38-126) U/L Ammonia <9 (<30) umol/L Creatine Kinase 257 H (55-170) U/L Troponin I 0.219 H* (0.000-0.034) ng/mL NT-Pro-B Natriuret Pep pg/mL Total Protein 6.8 (6.3-8.2) g/dL Albumin 4.0 (3.5-5.0) g/dL Urine Color Urine Appearance (Clear) Urine pH (5.0-8.0) Ur Specific [place] (1.001-1.035) Urine Protein (Negative) Urine Glucose (UA) (Negative) Urine Ketones (Negative) Urine Blood (Negative) Urine Nitrite (Negative) Urine Bilirubin (Negative) Urine Urobilinogen (<2.0) mg/dL Ur Leukocyte Esterase (Negative) Stool Occult Blood (Negative) Serum Alcohol <10 mg/dL Coronavirus (PCR) (Not Detectd) 12/31/19 12/31/19 12/31/19 Range/Units 08:28 09:00 09:52 WBC (3.8-10.6) k/uL RBC (4.30-5.90) m/uL Hgb (13.0-17.5) gm/dL Hct (39.0-53.0) % MCV (80.0-100.0) fL MCH (25.0-35.0) pg MCHC (31.0-37.0) g/dL RDW (11.5-15.5) % Plt Count (150-450) k/uL Neutrophils % % Lymphocytes % % Monocytes % % Eosinophils % % Basophils % % Neutrophils # (1.3-7.7) k/uL Lymphocytes # (1.0-4.8) k/uL Monocytes # (0-1.0) k/uL Eosinophils # (0-0.7) k/uL Basophils # (0-0.2) k/uL PT (9.0-12.0) sec INR (<1.2) APTT (22.0-30.0) sec Sodium (137-145) mmol/L Potassium (3.5-5.1) mmol/L Chloride (98-107) mmol/L Carbon Dioxide (22-30) mmol/L Anion Gap mmol/L BUN (9-20) mg/dL Creatinine (0.66-1.25) mg/dL Est GFR (CKD-EPI)AfAm (>60 ml/min/1.73 sqM) Est GFR (CKD-EPI)NonAf (>60 ml/min/1.73 sqM) Glucose (74-99) mg/dL POC Glucose (mg/dL) (75-99) mg/dL POC Glu Fur Tinter ID Plasma Lactic Acid Juan F (0.7-2.0) mmol/L Calcium (8.4-10.2) mg/dL Magnesium (1.6-2.3) mg/dL Total Bilirubin (0.2-1.3) mg/dL AST (17-59) U/L ALT (4-49) U/L Alkaline Phosphatase (38-126) U/L Ammonia (<30) umol/L Creatine Kinase (55-170) U/L Troponin I (0.000-0.034) ng/mL NT-Pro-B Natriuret Pep 1120 pg/mL Total Protein (6.3-8.2) g/dL Albumin (3.5-5.0) g/dL Urine Color Urine Appearance (Clear) Urine pH (5.0-8.0) Ur Specific [place] (1.001-1.035) Urine Protein (Negative) Urine Glucose (UA) (Negative) Urine Ketones (Negative) Urine Blood (Negative) Urine Nitrite (Negative) Urine Bilirubin (Negative) Urine Urobilinogen (<2.0) mg/dL Ur Leukocyte Esterase (Negative) Stool Occult Blood Negative (Negative) Serum Alcohol mg/dL Coronavirus (PCR) Not Detected (Not Detectd) 12/31/19 Range/Units 11:00 WBC (3.8-10.6) k/uL RBC (4.30-5.90) m/uL Hgb (13.0-17.5) gm/dL Hct (39.0-53.0) % MCV (80.0-100.0) fL MCH (25.0-35.0) pg MCHC (31.0-37.0) g/dL RDW (11.5-15.5) % Plt Count (150-450) k/uL Neutrophils % % Lymphocytes % % Monocytes % % Eosinophils % % Basophils % % Neutrophils # (1.3-7.7) k/uL Lymphocytes # (1.0-4.8) k/uL Monocytes # (0-1.0) k/uL Eosinophils # (0-0.7) k/uL Basophils # (0-0.2) k/uL PT (9.0-12.0) sec INR (<1.2) APTT (22.0-30.0) sec Sodium (137-145) mmol/L Potassium (3.5-5.1) mmol/L Chloride (98-107) mmol/L Carbon Dioxide (22-30) mmol/L Anion Gap mmol/L BUN (9-20) mg/dL Creatinine (0.66-1.25) mg/dL Est GFR (CKD-EPI)AfAm (>60 ml/min/1.73 sqM) Est GFR (CKD-EPI)NonAf (>60 ml/min/1.73 sqM) Glucose (74-99) mg/dL POC Glucose (mg/dL) (75-99) mg/dL POC Glu Fur Tinter ID Plasma Lactic Acid Juan F (0.7-2.0) mmol/L Calcium (8.4-10.2) mg/dL Magnesium (1.6-2.3) mg/dL Total Bilirubin (0.2-1.3) mg/dL AST (17-59) U/L ALT (4-49) U/L Alkaline Phosphatase (38-126) U/L Ammonia (<30) umol/L Creatine Kinase (55-170) U/L Troponin I (0.000-0.034) ng/mL NT-Pro-B Natriuret Pep pg/mL Total Protein (6.3-8.2) g/dL Albumin (3.5-5.0) g/dL Urine Color Yellow Urine Appearance Clear (Clear) Urine pH 5.0 (5.0-8.0) Ur Specific [place] 1.017 (1.001-1.035) Urine Protein Negative (Negative) Urine Glucose (UA) Negative (Negative) Urine Ketones Trace H (Negative) Urine Blood Negative (Negative) Urine Nitrite Negative (Negative) Urine Bilirubin Negative (Negative) Urine Urobilinogen <2.0 (<2.0) mg/dL Ur Leukocyte Esterase Negative (Negative) Stool Occult Blood (Negative) Serum Alcohol mg/dL Coronavirus (PCR) (Not Detectd) Disposition Clinical Impression: Altered mental status, Elevated troponin Disposition: ADMITTED IP TO THIS HOSP Condition: Fair Referrals: Juan Heaton MD [Primary Care Provider] - 1-2 days Decision Time: 11:32
[2019-12-31 08:46] LABS: Basophils % (A) 0 %; Eosinophils % (A) 1 %; HCT 38.8 % (39.0-53.0); Lymphocytes # (A) 0.5 k/uL (1.0-4.8); Lymphocytes % (A) 6 %; MCH 29.7 pg (25.0-35.0); MCHC 33.6 g/dL (31.0-37.0); MCV 88.4 fL (80.0-100.0); Mean Platelet Volume 8.1; Monocytes # (A) 0.6 k/uL (0-1.0); Monocytes % (A) 7 %; Neutrophils # (A) 8.2 k/uL (1.3-7.7); Neutrophils % (A) 86 %; Platelet Count 118 k/uL (150-450); RBC 4.38 m/uL (4.30-5.90); RDW 13.7 % (11.5-15.5); WBC 9.4 k/uL (3.8-10.6)
[2019-12-31 08:50] LABS: Lactic Acid, Venous 1.4 mmol/L (0.7-2.0)
[2019-12-31 08:54] LABS: Partial Thromboplastin Time 24.3 sec (22.0-30.0); Prothrombin Time 10.5 sec (9.0-12.0)
[2019-12-31 08:56] LABS: ALT 12 U/L (4-49); AST 27 U/L (17-59); African American GFR (CKD) 35 (>60 ml/min/1.73 sqM); Alcohol <10 mg/dL; Alkaline Phosphatase 103 U/L (38-126); Anion Gap 17 mmol/L; Blood Urea Nitrogen 57 mg/dL (9-20); Calcium 9.6 mg/dL (8.4-10.2); Carbon Dioxide 19 mmol/L (22-30); Chloride 105 mmol/L (98-107); Creatine Kinase 257 U/L (55-170); Glucose 140 mg/dL (74-99); Magnesium 2.3 mg/dL (1.6-2.3); Non-African American GFR(CKD) 30 (>60 ml/min/1.73 sqM); Potassium 4.3 mmol/L (3.5-5.1); Sodium 141 mmol/L (137-145); Total Bilirubin 0.7 mg/dL (0.2-1.3); Total Protein 6.8 g/dL (6.3-8.2)
--- NOTE | 2019-12-31 09:09 | CT ---
EXAMINATION TYPE: CT brain dimitrios snider DATE OF EXAM: 12/31/2019 COMPARISON: NONE HISTORY: altered mental status, possible fall CT DLP: 1397.5 mGycm Automated exposure control for dose reduction was used. TECHNIQUE: CT scan of the head and cervical spine are performed without contrast. FINDINGS: BRAIN: There are generalized changes of sulcal prominence and ventriculomegaly, compatible with atrop hy. There is mild, diffuse periventricular white matter lucency, compatible with small vessel ischemi c change. There is no acute focal lesion, mass effect or midline shift identified. I do not see evide nce of intracranial blood. There is vascular calcification. There is dolichoectasia of the vertebral basilar system. There is mild mucoperiosteal thickening involving the posterior right ethmoidal air cells. The remain roscoe the paranasal sinuses and mastoids are clear. The bony calvarium is IMPRESSION: 1. NO ACUTE INTRACRANIAL ABNORMALITY. 2. ATROPHY. 3. CHRONIC WHITE MATTER ISCHEMIC CHANGE. 4. MILD MUCOSAL DISEASE. CERVICAL SPINE: There are mild emphysematous changes throughout the lungs. Prevertebral soft tissues are normal. Vertebral body heights maintained. There is a grade 1 antegrade listhesis of C4 on C5 and C5 on C6. A lignment is otherwise maintained. Atlantoaxial relationships are normal. There is degenerative disc disease and hypertrophic spondylosis most marked at C5-6 and C6-7. There i s uncovertebral joint disease at these levels. There is facet arthropathy present bilaterally at C2-C 3 and C3-4 as well as C4-5 and C5-6. There is foraminal narrowing on the left at C2-3 and bilaterally at C3-4 and C4-5 as well as on the left at C5-6. No definite protrusion is seen. No fracture is iden tified. IMPRESSION: 1. NO ACUTE OSSEOUS LESION. 2. EMPHYSEMATOUS CHANGE. 3. RELATIVELY SEVERE DEGENERATIVE CHANGE. 4. MULTILEVEL INTERVERTEBRAL FORAMINAL NARROWING.
--- NOTE | 2019-12-31 09:35 | XR ---
EXAMINATION TYPE: XR elbow complete LT , 3 VIEWS DATE OF EXAM ORDERED: 12/31/2019 HISTORY: fall pain. COMPARISON: Previous study dated 11/29/2018. FINDINGS: No fracture, dislocation or joint effusion is seen. There are mild degenerative changes. IMPRESSION: NO ACUTE OSSEOUS LESION.
--- NOTE | 2019-12-31 09:36 | XR ---
EXAMINATION TYPE: XR shoulder complete LT , 3 VIEWS DATE OF EXAM ORDERED: 12/31/2019 HISTORY: fall pain. COMPARISON: None. FINDINGS: There is a multilead pacing device in place overlying the left chest. There hypertrophic changes in the left AC joint. No fracture, dislocation or other acute osseous lesi on is seen. IMPRESSION: 1. NO ACUTE OSSEOUS LESION. 2. DEGENERATIVE CHANGE.
--- NOTE | 2019-12-31 09:37 | XR ---
EXAMINATION TYPE: XR pelvis AP view , ONE VIEW DATE OF EXAM ORDERED: 12/31/2019 HISTORY: fall. COMPARISON: None. FINDINGS: There are severe degenerative changes in both hips. There is spondylosis deformans within the lumbar spine. No acute pelvic fracture is seen. IMPRESSION: 1. NO ACUTE OSSEOUS LESION. 2. EXTENSIVE DEGENERATIVE CHANGE.
--- NOTE | 2019-12-31 09:38 | XR ---
EXAMINATION TYPE: XR chest 1V portable DATE OF EXAM: 12/31/2019 HISTORY: fall. REFERENCE: Previous study dated 09/30/2019. FINDINGS: There is a multilead pacing device present on the left. There are degenerative changes in both shoulders. The lungs are clear. Pleural spaces are clear. The heart is not enlarged. IMPRESSION: NO ACTIVE INTRATHORACIC DISEASE.
[2019-12-31] MEDS ORDERED: ASPIRIN 81 MG PO STA (10:27)
[2019-12-31] MEDS ORDERED: HEPARIN SODIUM,PORCINE 5,000 UNIT/ML 1 ML VIAL IV PRN (10:59)
[2019-12-31] MEDS ORDERED: HEPARIN SODIUM,PORCINE 5,000 UNIT/ML 1 ML VIAL IV ONE (10:59)
[2019-12-31] MEDS ORDERED: HEPARIN SOD,PORK IN 0.45% NACL 25,000 UNIT in 0.45% NACL 1 250ML.BAG IV SCH (11:00)
[2019-12-31 11:20] LABS: Appearance,Urine Clear (Clear); Bilirubin,Urine Negative (Negative); Blood,Urine Negative (Negative); Color,Urine Yellow; Glucose,Urine (UA) Negative (Negative); Ketones,Urine Trace (Negative); Leukocyte Esterase,Urine Negative (Negative); Nitrite,Urine Negative (Negative); Protein,Urine Negative (Negative); Specific Gravity,Urine 1.017 (1.001-1.035); Urobilinogen,Urine <2.0 mg/dL (<2.0)
[2019-12-31] MEDS ORDERED: SODIUM CHLORIDE 0.9% 1,000 ML IV STA (11:20)
[2019-12-31] MEDS ORDERED: oxyCODONE-APAP 5-325MG 1 EACH TAB PO PRN (11:28)
[2019-12-31] MEDS ORDERED: ONDANSETRON 4 MG/2 ML VIAL IVP PRN (11:28)
[2019-12-31] MEDS ORDERED: NALOXONE 0.4 MG/ML 1 ML VIAL IV PRN (11:28)
[2019-12-31] MEDS ORDERED: ACETAMINOPHEN TAB 325 MG TAB PO PRN (11:28)
[2019-12-31] MEDS ORDERED: SODIUM CHLORIDE 0.9% 1,000 ML IV SCH (11:30)
[2019-12-31] MEDS ORDERED: LORazepam 2 MG/ML INJ IV STA ×2 (12:14→12:25)
[2019-12-31] MEDS: KETAMINE 10 MG/ML 20 ML VIAL IV ONE ×2 (12:38→12:58)
--- NOTE | 2019-12-31 12:45 | ED ---
Medical Decision Making - Lab Data Result diagrams: 12/31/19 08:28 12/31/19 08:28 Lab Results 12/31/19 12/31/19 12/31/19 Range/Units 08:19 08:28 08:28 WBC 9.4 (3.8-10.6) k/uL RBC 4.38 (4.30-5.90) m/uL Hgb 13.0 (13.0-17.5) gm/dL Hct 38.8 L (39.0-53.0) % MCV 88.4 (80.0-100.0) fL MCH 29.7 (25.0-35.0) pg MCHC 33.6 (31.0-37.0) g/dL RDW 13.7 (11.5-15.5) % Plt Count 118 L (150-450) k/uL Neutrophils % 86 % Lymphocytes % 6 % Monocytes % 7 % Eosinophils % 1 % Basophils % 0 % Neutrophils # 8.2 H (1.3-7.7) k/uL Lymphocytes # 0.5 L (1.0-4.8) k/uL Monocytes # 0.6 (0-1.0) k/uL Eosinophils # 0.0 (0-0.7) k/uL Basophils # 0.0 (0-0.2) k/uL PT 10.5 (9.0-12.0) sec INR 1.0 (<1.2) APTT 24.3 (22.0-30.0) sec Sodium (137-145) mmol/L Potassium (3.5-5.1) mmol/L Chloride (98-107) mmol/L Carbon Dioxide (22-30) mmol/L Anion Gap mmol/L BUN (9-20) mg/dL Creatinine (0.66-1.25) mg/dL Est GFR (CKD-EPI)AfAm (>60 ml/min/1.73 sqM) Est GFR (CKD-EPI)NonAf (>60 ml/min/1.73 sqM) Glucose (74-99) mg/dL POC Glucose (mg/dL) 145 H (75-99) mg/dL POC Glu Scientific Photographer ID Cheryl Cartagena Plasma Lactic Acid Juan F (0.7-2.0) mmol/L Calcium (8.4-10.2) mg/dL Magnesium (1.6-2.3) mg/dL Total Bilirubin (0.2-1.3) mg/dL AST (17-59) U/L ALT (4-49) U/L Alkaline Phosphatase (38-126) U/L Ammonia (<30) umol/L Creatine Kinase (55-170) U/L Troponin I (0.000-0.034) ng/mL NT-Pro-B Natriuret Pep pg/mL Total Protein (6.3-8.2) g/dL Albumin (3.5-5.0) g/dL Urine Color Urine Appearance (Clear) Urine pH (5.0-8.0) Ur Specific [place] (1.001-1.035) Urine Protein (Negative) Urine Glucose (UA) (Negative) Urine Ketones (Negative) Urine Blood (Negative) Urine Nitrite (Negative) Urine Bilirubin (Negative) Urine Urobilinogen (<2.0) mg/dL Ur Leukocyte Esterase (Negative) Stool Occult Blood (Negative) Serum Alcohol mg/dL Coronavirus (PCR) (Not Detectd) 12/31/19 12/31/19 12/31/19 Range/Units 08:28 08:28 08:28 WBC (3.8-10.6) k/uL RBC (4.30-5.90) m/uL Hgb (13.0-17.5) gm/dL Hct (39.0-53.0) % MCV (80.0-100.0) fL MCH (25.0-35.0) pg MCHC (31.0-37.0) g/dL RDW (11.5-15.5) % Plt Count (150-450) k/uL Neutrophils % % Lymphocytes % % Monocytes % % Eosinophils % % Basophils % % Neutrophils # (1.3-7.7) k/uL Lymphocytes # (1.0-4.8) k/uL Monocytes # (0-1.0) k/uL Eosinophils # (0-0.7) k/uL Basophils # (0-0.2) k/uL PT (9.0-12.0) sec INR (<1.2) APTT (22.0-30.0) sec Sodium 141 (137-145) mmol/L Potassium 4.3 (3.5-5.1) mmol/L Chloride 105 (98-107) mmol/L Carbon Dioxide 19 L (22-30) mmol/L Anion Gap 17 mmol/L BUN 57 H (9-20) mg/dL Creatinine 1.98 H (0.66-1.25) mg/dL Est GFR (CKD-EPI)AfAm 35 (>60 ml/min/1.73 sqM) Est GFR (CKD-EPI)NonAf 30 (>60 ml/min/1.73 sqM) Glucose 140 H (74-99) mg/dL POC Glucose (mg/dL) (75-99) mg/dL POC Glu Scientific Photographer ID Plasma Lactic Acid Juan F 1.4 (0.7-2.0) mmol/L Calcium 9.6 (8.4-10.2) mg/dL Magnesium 2.3 (1.6-2.3) mg/dL Total Bilirubin 0.7 (0.2-1.3) mg/dL AST 27 (17-59) U/L ALT 12 (4-49) U/L Alkaline Phosphatase 103 (38-126) U/L Ammonia <9 (<30) umol/L Creatine Kinase 257 H (55-170) U/L Troponin I 0.219 H* (0.000-0.034) ng/mL NT-Pro-B Natriuret Pep pg/mL Total Protein 6.8 (6.3-8.2) g/dL Albumin 4.0 (3.5-5.0) g/dL Urine Color Urine Appearance (Clear) Urine pH (5.0-8.0) Ur Specific [place] (1.001-1.035) Urine Protein (Negative) Urine Glucose (UA) (Negative) Urine Ketones (Negative) Urine Blood (Negative) Urine Nitrite (Negative) Urine Bilirubin (Negative) Urine Urobilinogen (<2.0) mg/dL Ur Leukocyte Esterase (Negative) Stool Occult Blood (Negative) Serum Alcohol <10 mg/dL Coronavirus (PCR) (Not Detectd) 12/31/19 12/31/19 12/31/19 Range/Units 08:28 09:00 09:52 WBC (3.8-10.6) k/uL RBC (4.30-5.90) m/uL Hgb (13.0-17.5) gm/dL Hct (39.0-53.0) % MCV (80.0-100.0) fL MCH (25.0-35.0) pg MCHC (31.0-37.0) g/dL RDW (11.5-15.5) % Plt Count (150-450) k/uL Neutrophils % % Lymphocytes % % Monocytes % % Eosinophils % % Basophils % % Neutrophils # (1.3-7.7) k/uL Lymphocytes # (1.0-4.8) k/uL Monocytes # (0-1.0) k/uL Eosinophils # (0-0.7) k/uL Basophils # (0-0.2) k/uL PT (9.0-12.0) sec INR (<1.2) APTT (22.0-30.0) sec Sodium (137-145) mmol/L Potassium (3.5-5.1) mmol/L Chloride (98-107) mmol/L Carbon Dioxide (22-30) mmol/L Anion Gap mmol/L BUN (9-20) mg/dL Creatinine (0.66-1.25) mg/dL Est GFR (CKD-EPI)AfAm (>60 ml/min/1.73 sqM) Est GFR (CKD-EPI)NonAf (>60 ml/min/1.73 sqM) Glucose (74-99) mg/dL POC Glucose (mg/dL) (75-99) mg/dL POC Glu Scientific Photographer ID Plasma Lactic Acid Juan F (0.7-2.0) mmol/L Calcium (8.4-10.2) mg/dL Magnesium (1.6-2.3) mg/dL Total Bilirubin (0.2-1.3) mg/dL AST (17-59) U/L ALT (4-49) U/L Alkaline Phosphatase (38-126) U/L Ammonia (<30) umol/L Creatine Kinase (55-170) U/L Troponin I (0.000-0.034) ng/mL NT-Pro-B Natriuret Pep 1120 pg/mL Total Protein (6.3-8.2) g/dL Albumin (3.5-5.0) g/dL Urine Color Urine Appearance (Clear) Urine pH (5.0-8.0) Ur Specific [place] (1.001-1.035) Urine Protein (Negative) Urine Glucose (UA) (Negative) Urine Ketones (Negative) Urine Blood (Negative) Urine Nitrite (Negative) Urine Bilirubin (Negative) Urine Urobilinogen (<2.0) mg/dL Ur Leukocyte Esterase (Negative) Stool Occult Blood Negative (Negative) Serum Alcohol mg/dL Coronavirus (PCR) Not Detected (Not Detectd) 12/31/19 Range/Units 11:00 WBC (3.8-10.6) k/uL RBC (4.30-5.90) m/uL Hgb (13.0-17.5) gm/dL Hct (39.0-53.0) % MCV (80.0-100.0) fL MCH (25.0-35.0) pg MCHC (31.0-37.0) g/dL RDW (11.5-15.5) % Plt Count (150-450) k/uL Neutrophils % % Lymphocytes % % Monocytes % % Eosinophils % % Basophils % % Neutrophils # (1.3-7.7) k/uL Lymphocytes # (1.0-4.8) k/uL Monocytes # (0-1.0) k/uL Eosinophils # (0-0.7) k/uL Basophils # (0-0.2) k/uL PT (9.0-12.0) sec INR (<1.2) APTT (22.0-30.0) sec Sodium (137-145) mmol/L Potassium (3.5-5.1) mmol/L Chloride (98-107) mmol/L Carbon Dioxide (22-30) mmol/L Anion Gap mmol/L BUN (9-20) mg/dL Creatinine (0.66-1.25) mg/dL Est GFR (CKD-EPI)AfAm (>60 ml/min/1.73 sqM) Est GFR (CKD-EPI)NonAf (>60 ml/min/1.73 sqM) Glucose (74-99) mg/dL POC Glucose (mg/dL) (75-99) mg/dL POC Glu Scientific Photographer ID Plasma Lactic Acid Juan F (0.7-2.0) mmol/L Calcium (8.4-10.2) mg/dL Magnesium (1.6-2.3) mg/dL Total Bilirubin (0.2-1.3) mg/dL AST (17-59) U/L ALT (4-49) U/L Alkaline Phosphatase (38-126) U/L Ammonia (<30) umol/L Creatine Kinase (55-170) U/L Troponin I (0.000-0.034) ng/mL NT-Pro-B Natriuret Pep pg/mL Total Protein (6.3-8.2) g/dL Albumin (3.5-5.0) g/dL Urine Color Yellow Urine Appearance Clear (Clear) Urine pH 5.0 (5.0-8.0) Ur Specific [place] 1.017 (1.001-1.035) Urine Protein Negative (Negative) Urine Glucose (UA) Negative (Negative) Urine Ketones Trace H (Negative) Urine Blood Negative (Negative) Urine Nitrite Negative (Negative) Urine Bilirubin Negative (Negative) Urine Urobilinogen <2.0 (<2.0) mg/dL Ur Leukocyte Esterase Negative (Negative) Stool Occult Blood (Negative) Serum Alcohol mg/dL Coronavirus (PCR) (Not Detectd) Disposition Clinical Impression: Altered mental status, Elevated troponin Disposition: ADMITTED IP TO THIS HOSP Condition: Fair Procedures - Procedural Sedation Procedural Sedation Start Time: 12:38 Procedural Sedation Stop Time: 12:42 Indications: other (direct laryngoscopy possible removal of foreign body) ASA Class: III Mallampati Airway Score: 2 Preparation: ski lift mechanic applied, pulse oximeter, capnometry used, supplemental O2 applied, suction/airway equipment at bedside, IV secured Ketamine: IV (40 mg) Complications: none Patient Tolerated Procedure: well
[2019-12-31] MEDS ORDERED: BENZOCAINE SPRAY 1 CAN ONE (13:00)
[2019-12-31] MEDS ORDERED: BENZOCAINE SPRAY 1 CAN TOPICAL STA (13:01)
--- NOTE | 2019-12-31 13:05 | XR ---
EXAMINATION TYPE: XR chest 1V portable DATE OF EXAM: 12/31/2019 HISTORY: swallowed hearing aid. REFERENCE: Previous study dated earlier today. FINDINGS: There is a small electrical device which appears to be in the right piriform sinus. There i s a multilead pacing device in place in the left. The lungs appear clear. Pleural space are clear. Th e heart is not enlarged. IMPRESSION: SMALL ELECTRICAL DEVICE IN THE RIGHT PIRIFORM SINUS LIKELY REPRESENTS THE PATIENT'S HEARING AID.
--- NOTE | 2019-12-31 13:08 | XR ---
EXAMINATION TYPE: XR soft tissue neck , ONE VIEW DATE OF EXAM ORDERED: 12/31/2019 HISTORY: swallowed hearing aid. COMPARISON: Previous study dated 09/30/2019. FINDINGS: A small electrical device is situated in the right piriform sinus. IMPRESSION: SMALL ELECTRICAL DEVICE IN THE RIGHT PIRIFORM SINUS LIKELY REPRESENTS THE PATIENT'S HEARING AID.
--- NOTE | 2019-12-31 13:14 | ED ---
Medical Decision Making - Medical Decision Making Soft tissue x-ray was performed showing a hearing aid located at the level of the vallecula just above the vocal cords and the right sided recess. Patient underwent procedural sedation. Hurricaine spray and lidocaine jelly was applied to the posterior oropharynx after administration of 40 mg of ketamine. Hearing aid was retrieved. Repeat x-ray shows no acute processes. Patient be dispositioned to the floor. - Lab Data Result diagrams: 12/31/19 08:28 12/31/19 08:28 Lab Results 12/31/19 12/31/19 12/31/19 Range/Units 08:19 08:28 08:28 WBC 9.4 (3.8-10.6) k/uL RBC 4.38 (4.30-5.90) m/uL Hgb 13.0 (13.0-17.5) gm/dL Hct 38.8 L (39.0-53.0) % MCV 88.4 (80.0-100.0) fL MCH 29.7 (25.0-35.0) pg MCHC 33.6 (31.0-37.0) g/dL RDW 13.7 (11.5-15.5) % Plt Count 118 L (150-450) k/uL Neutrophils % 86 % Lymphocytes % 6 % Monocytes % 7 % Eosinophils % 1 % Basophils % 0 % Neutrophils # 8.2 H (1.3-7.7) k/uL Lymphocytes # 0.5 L (1.0-4.8) k/uL Monocytes # 0.6 (0-1.0) k/uL Eosinophils # 0.0 (0-0.7) k/uL Basophils # 0.0 (0-0.2) k/uL PT 10.5 (9.0-12.0) sec INR 1.0 (<1.2) APTT 24.3 (22.0-30.0) sec Sodium (137-145) mmol/L Potassium (3.5-5.1) mmol/L Chloride (98-107) mmol/L Carbon Dioxide (22-30) mmol/L Anion Gap mmol/L BUN (9-20) mg/dL Creatinine (0.66-1.25) mg/dL Est GFR (CKD-EPI)AfAm (>60 ml/min/1.73 sqM) Est GFR (CKD-EPI)NonAf (>60 ml/min/1.73 sqM) Glucose (74-99) mg/dL POC Glucose (mg/dL) 145 H (75-99) mg/dL POC Glu Dermatologist And Dermatopathologist Cheryl Santizo Plasma Lactic Acid Juan F (0.7-2.0) mmol/L Calcium (8.4-10.2) mg/dL Magnesium (1.6-2.3) mg/dL Total Bilirubin (0.2-1.3) mg/dL AST (17-59) U/L ALT (4-49) U/L Alkaline Phosphatase (38-126) U/L Ammonia (<30) umol/L Creatine Kinase (55-170) U/L Troponin I (0.000-0.034) ng/mL NT-Pro-B Natriuret Pep pg/mL Total Protein (6.3-8.2) g/dL Albumin (3.5-5.0) g/dL Urine Color Urine Appearance (Clear) Urine pH (5.0-8.0) Ur Specific [place] (1.001-1.035) Urine Protein (Negative) Urine Glucose (UA) (Negative) Urine Ketones (Negative) Urine Blood (Negative) Urine Nitrite (Negative) Urine Bilirubin (Negative) Urine Urobilinogen (<2.0) mg/dL Ur Leukocyte Esterase (Negative) Stool Occult Blood (Negative) Serum Alcohol mg/dL Coronavirus (PCR) (Not Detectd) 12/31/19 12/31/19 12/31/19 Range/Units 08:28 08:28 08:28 WBC (3.8-10.6) k/uL RBC (4.30-5.90) m/uL Hgb (13.0-17.5) gm/dL Hct (39.0-53.0) % MCV (80.0-100.0) fL MCH (25.0-35.0) pg MCHC (31.0-37.0) g/dL RDW (11.5-15.5) % Plt Count (150-450) k/uL Neutrophils % % Lymphocytes % % Monocytes % % Eosinophils % % Basophils % % Neutrophils # (1.3-7.7) k/uL Lymphocytes # (1.0-4.8) k/uL Monocytes # (0-1.0) k/uL Eosinophils # (0-0.7) k/uL Basophils # (0-0.2) k/uL PT (9.0-12.0) sec INR (<1.2) APTT (22.0-30.0) sec Sodium 141 (137-145) mmol/L Potassium 4.3 (3.5-5.1) mmol/L Chloride 105 (98-107) mmol/L Carbon Dioxide 19 L (22-30) mmol/L Anion Gap 17 mmol/L BUN 57 H (9-20) mg/dL Creatinine 1.98 H (0.66-1.25) mg/dL Est GFR (CKD-EPI)AfAm 35 (>60 ml/min/1.73 sqM) Est GFR (CKD-EPI)NonAf 30 (>60 ml/min/1.73 sqM) Glucose 140 H (74-99) mg/dL POC Glucose (mg/dL) (75-99) mg/dL POC Glu Dermatologist And Dermatopathologist ID Plasma Lactic Acid Juan F 1.4 (0.7-2.0) mmol/L Calcium 9.6 (8.4-10.2) mg/dL Magnesium 2.3 (1.6-2.3) mg/dL Total Bilirubin 0.7 (0.2-1.3) mg/dL AST 27 (17-59) U/L ALT 12 (4-49) U/L Alkaline Phosphatase 103 (38-126) U/L Ammonia <9 (<30) umol/L Creatine Kinase 257 H (55-170) U/L Troponin I 0.219 H* (0.000-0.034) ng/mL NT-Pro-B Natriuret Pep pg/mL Total Protein 6.8 (6.3-8.2) g/dL Albumin 4.0 (3.5-5.0) g/dL Urine Color Urine Appearance (Clear) Urine pH (5.0-8.0) Ur Specific [place] (1.001-1.035) Urine Protein (Negative) Urine Glucose (UA) (Negative) Urine Ketones (Negative) Urine Blood (Negative) Urine Nitrite (Negative) Urine Bilirubin (Negative) Urine Urobilinogen (<2.0) mg/dL Ur Leukocyte Esterase (Negative) Stool Occult Blood (Negative) Serum Alcohol <10 mg/dL Coronavirus (PCR) (Not Detectd) 12/31/19 12/31/19 12/31/19 Range/Units 08:28 09:00 09:52 WBC (3.8-10.6) k/uL RBC (4.30-5.90) m/uL Hgb (13.0-17.5) gm/dL Hct (39.0-53.0) % MCV (80.0-100.0) fL MCH (25.0-35.0) pg MCHC (31.0-37.0) g/dL RDW (11.5-15.5) % Plt Count (150-450) k/uL Neutrophils % % Lymphocytes % % Monocytes % % Eosinophils % % Basophils % % Neutrophils # (1.3-7.7) k/uL Lymphocytes # (1.0-4.8) k/uL Monocytes # (0-1.0) k/uL Eosinophils # (0-0.7) k/uL Basophils # (0-0.2) k/uL PT (9.0-12.0) sec INR (<1.2) APTT (22.0-30.0) sec Sodium (137-145) mmol/L Potassium (3.5-5.1) mmol/L Chloride (98-107) mmol/L Carbon Dioxide (22-30) mmol/L Anion Gap mmol/L BUN (9-20) mg/dL Creatinine (0.66-1.25) mg/dL Est GFR (CKD-EPI)AfAm (>60 ml/min/1.73 sqM) Est GFR (CKD-EPI)NonAf (>60 ml/min/1.73 sqM) Glucose (74-99) mg/dL POC Glucose (mg/dL) (75-99) mg/dL POC Glu Dermatologist And Dermatopathologist ID Plasma Lactic Acid Juan F (0.7-2.0) mmol/L Calcium (8.4-10.2) mg/dL Magnesium (1.6-2.3) mg/dL Total Bilirubin (0.2-1.3) mg/dL AST (17-59) U/L ALT (4-49) U/L Alkaline Phosphatase (38-126) U/L Ammonia (<30) umol/L Creatine Kinase (55-170) U/L Troponin I (0.000-0.034) ng/mL NT-Pro-B Natriuret Pep 1120 pg/mL Total Protein (6.3-8.2) g/dL Albumin (3.5-5.0) g/dL Urine Color Urine Appearance (Clear) Urine pH (5.0-8.0) Ur Specific [place] (1.001-1.035) Urine Protein (Negative) Urine Glucose (UA) (Negative) Urine Ketones (Negative) Urine Blood (Negative) Urine Nitrite (Negative) Urine Bilirubin (Negative) Urine Urobilinogen (<2.0) mg/dL Ur Leukocyte Esterase (Negative) Stool Occult Blood Negative (Negative) Serum Alcohol mg/dL Coronavirus (PCR) Not Detected (Not Detectd) 12/31/19 Range/Units 11:00 WBC (3.8-10.6) k/uL RBC (4.30-5.90) m/uL Hgb (13.0-17.5) gm/dL Hct (39.0-53.0) % MCV (80.0-100.0) fL MCH (25.0-35.0) pg MCHC (31.0-37.0) g/dL RDW (11.5-15.5) % Plt Count (150-450) k/uL Neutrophils % % Lymphocytes % % Monocytes % % Eosinophils % % Basophils % % Neutrophils # (1.3-7.7) k/uL Lymphocytes # (1.0-4.8) k/uL Monocytes # (0-1.0) k/uL Eosinophils # (0-0.7) k/uL Basophils # (0-0.2) k/uL PT (9.0-12.0) sec INR (<1.2) APTT (22.0-30.0) sec Sodium (137-145) mmol/L Potassium (3.5-5.1) mmol/L Chloride (98-107) mmol/L Carbon Dioxide (22-30) mmol/L Anion Gap mmol/L BUN (9-20) mg/dL Creatinine (0.66-1.25) mg/dL Est GFR (CKD-EPI)AfAm (>60 ml/min/1.73 sqM) Est GFR (CKD-EPI)NonAf (>60 ml/min/1.73 sqM) Glucose (74-99) mg/dL POC Glucose (mg/dL) (75-99) mg/dL POC Glu Dermatologist And Dermatopathologist ID Plasma Lactic Acid Juan F (0.7-2.0) mmol/L Calcium (8.4-10.2) mg/dL Magnesium (1.6-2.3) mg/dL Total Bilirubin (0.2-1.3) mg/dL AST (17-59) U/L ALT (4-49) U/L Alkaline Phosphatase (38-126) U/L Ammonia (<30) umol/L Creatine Kinase (55-170) U/L Troponin I (0.000-0.034) ng/mL NT-Pro-B Natriuret Pep pg/mL Total Protein (6.3-8.2) g/dL Albumin (3.5-5.0) g/dL Urine Color Yellow Urine Appearance Clear (Clear) Urine pH 5.0 (5.0-8.0) Ur Specific [place] 1.017 (1.001-1.035) Urine Protein Negative (Negative) Urine Glucose (UA) Negative (Negative) Urine Ketones Trace H (Negative) Urine Blood Negative (Negative) Urine Nitrite Negative (Negative) Urine Bilirubin Negative (Negative) Urine Urobilinogen <2.0 (<2.0) mg/dL Ur Leukocyte Esterase Negative (Negative) Stool Occult Blood (Negative) Serum Alcohol mg/dL Coronavirus (PCR) (Not Detectd) Disposition Clinical Impression: Altered mental status, Elevated troponin Disposition: ADMITTED IP TO THIS [facility] Condition: Fair Decision Time: 13:14 Procedures - [place] Protocol (Time Out) Procedure Performed:: Attempted foreign object removal Performing Provider: Amarjit Mckay Nurse: Almita Dukes Respiratory Therapist: Brooklyn Lay Patient Identification (2 identifiers required): Chart, Arm Band, Name, Birthdate Patient/Legal Visualizer has Confirmed: Identity, Site, Procedure Site: mouth Site Marked: Not Applicable - Procedural Sedation Procedural Sedation Start Time: 12:58 Procedural Sedation Stop Time: 01:08 Indications: other (retrieval of pharyngeal foreign body) ASA Class: III Mallampati Airway Score: 2 Preparation: director of cardiac cath lab applied, pulse oximeter, supplemental O2 applied Ketamine: IV Ketamine Dose: 40 Complications: none Patient Tolerated Procedure: well
--- NOTE | 2019-12-31 13:29 | XR ---
EXAMINATION TYPE: XR soft tissue neck , ONE VIEW DATE OF EXAM ORDERED: 12/31/2019 HISTORY: s/p removal of pharyngeal foreign body. COMPARISON: Previous study of earlier today. FINDINGS: Radiopaque foreign body is been removed. No radiopaque foreign body is seen at this time. IMPRESSION: STATUS POST REMOVAL OF THE PATIENT'S LEFT LARYNGEAL FOREIGN BODY.
[2019-12-31] MEDS ORDERED: NITROGLYCERIN SL TABS 0.4 MG TAB SUBLINGUAL PRN (16:20)
--- NOTE | 2019-12-31 16:42 | P.HPIM ---
History of Present Illness H&P Date: 12/31/19 Chief Complaint: Found on the floor This is a 84-year-old patient who lives alone. Being followed by Dr. Juan Hinton. Patient has a listed history of coronary artery disease with stent, hypertension, pacemaker. Patient does live alone. Patient was found at home on the floor. Apparently for last 3-4 days patient was somewhat confused. It is unknown as the patient fell the items from the table on the floor. Patient is found laying on the floor parents unbutton lower to the waist. No signs of trauma present. No localized neurological findings are present. Family denied patient having any recent cough throat showed nausea vomiting fevers or chills. Patient was moved to a cervical collar. In the ER and I spoke to the ER physician and the nurse patient had no focal neurological deficits. Was actually answering questions though little slow. Patient did become agitated to put his hearing aid and tried to swallow it. This was finally extracted from the mouth. When I saw the patient had been given some ketamine and was somewhat sedated to give any further history. He has some troponin leak and he was put on IV heparin for the same in the ER. Had denied any chest pain. Admitting review of systems could not be done as patient is sedated right now Past medical history to include: Hypertension, coronary artery disease with stent, skin disorder, skin cyst lesion removed from the left ear pacemaker Social history: Patient sedated and obtained more history. Apparently lives alone. Otherwise no history of smoking or alcohol present Family history: Cannot obtain patient sedated Physical examination: VITAL SIGNS: 97.9, 71, 18, 145/70, 98% on room air] GENERAL: BMI 21.3, laying in bed somewhat sedated. EYES: Pupils equal. Conjunctiva normal. HEENT: External appearance of nose and ears normal, oral cavity, no teeth. NECK: JVD unable to assess; masses not palpable. HEART: First and second heart sounds are normal; no edema. LUNGS: Respiratory rate normal; decreased breath sounds. ABDOMEN: Soft, nontender, liver spleen not palpable, no masses palpable. PSYCH: Unable to assess patient somewhat sedatedl. NEUROLOGICAL: [Cranial nerves grossly intact; no facial asymmetry, earlier as per the ER staff patient was moving all 4 limbs equally LYMPHATICS: No lymph nodes palpable in the axilla and neck MUSCULOSKELETAL: Evidence of OA especially in the hands and knees INVESTIGATIONS, reviewed in the clinical context: White count 9.4 hemoglobin 13 platelets 118 pressure 4.3 bun 57 creatinine 1.98 Creatinine kinase-to 57 Troponin I 0.219 Serum alcohol less than 10 COVID-19 PCR-not detected Soft tissue x-ray of the neck-, pelvis x-ray, shoulder x-ray, elbow x-ray, had cervical spine computed tomography scan-no evidence of fracture. Evidence of osteoarthritis at multiple locations. EKG tracing personally reviewed by me-ventricular paced rhythm Chest x-ray film personally reviewed by me-questionable chronic changes, some mi ld hyperinflation Labs from: September 2019 showed a bun of 27 and creatinine of 1.35 Assessment: -This is a patient who's been somewhat confused for last 3-4 days, found on the floor, as per the ER evaluation before he was sedated to was no focal symptoms. Patient moving all 4 limbs. Was given answering questions. Patient's story is more compatible with acute delirium and metabolic encephalopathy. -Biventricular ICD -Chronic congestive heart failure from systolic dysfunction EF 30-35%, from 2-D echo in November 2018 -DJD -Essential hypertension -Coronary artery disease with stent - acute kidney injury, could be prerenal, -Chronic kidney disease stage III likely nephrosclerosis with a baseline creatinine 1.35 Plan: Neuro checks will be continued. We will aspiration precautions. Neurology is consulted. We'll DC IV heparin. Keep the patient on subcu Lovenox. Patient will be hydrated gently. Fall precautions. Cardiology also consulted. Repeat labs in the morning. Currently no family the bedside. Prognosis guarded. 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 Last Myocardial Infarction Date:: 12/09/18 History of Any Multi-Drug Resistant Organisms: None Reported Past Surgical History: Heart Catheterization With Stent, Orthopedic Surgery, Pacemaker Additional Past Surgical History / Comment(s): Right ankle fracture Past Anesthesia/Blood Transfusion Reactions: No Reported Reaction Date of Last Stent Placement:: 12/09/18 Type of Cardiac Device: AICD Device Placement Date:: 07/2019 Past Psychological History: No Psychological Hx Reported Smoking Status: Unknown if ever smoked Past Alcohol Use History: None Reported Past Drug Use History: None Reported - Past Family History Father History Unknown: Yes Mother History Unknown: Yes Medications and Allergies Home Medications Medication Instructions Recorded Confirmed Type Aspirin EC [Ecotrin Low Dose] 81 mg PO DAILY 11/29/18 12/31/19 History Cholecalciferol [Vitamin D3 (25 1,000 unit PO DAILY 11/29/18 12/31/19 History Mcg = 1000 Iu)] HYDROcodone/APAP 5-325MG [[place] 1 tab PO DAILY PRN 11/29/18 12/31/19 History 5-325] Loratadine [Claritin] 10 mg PO DAILY 11/29/18 12/31/19 History Atorvastatin [Lipitor] 80 mg PO HS #30 tab 12/12/18 12/31/19 Rx Lisinopril [Zestril] 5 mg PO DAILY #30 tab 12/12/18 12/31/19 Rx Nitroglycerin Sl Tabs [Nitrostat] 0.4 mg SUBLINGUAL Q5M PRN #25 tab 12/12/18 12/31/19 Rx Clopidogrel [Plavix] 75 mg PO DAILY 08/15/19 12/31/19 History Metoprolol Tartrate [Lopressor] 25 mg PO BID 12/31/19 12/31/19 History Sertraline [Zoloft] 50 mg PO DAILY 12/31/19 12/31/19 History Allergies Allergy/AdvReac Type Severity Reaction Status Date / Time No Known Allergies Allergy Verified 12/31/19 16:14 Physical Exam Vitals: Vital Signs Temp Pulse Pulse Resp BP BP Pulse Ox 12/31/19 13:30 97.8 F 70 18 131/82 98 12/31/19 13:20 97.7 F 70 18 134/84 98 12/31/19 13:10 97.7 F 65 18 144/74 98 12/31/19 13:08 67 18 168/78 98 12/31/19 13:03 67 18 132/70 100 12/31/19 12:57 67 18 132/70 98 12/31/19 12:49 69 18 132/70 97 12/31/19 12:40 69 18 132/70 97 12/31/19 12:30 67 18 132/70 98 12/31/19 12:25 96.7 F L 79 16 149/67 99 12/31/19 12:00 68 18 140/94 98 12/31/19 11:30 68 18 132/76 98 12/31/19 11:03 68 18 150/76 98 12/31/19 11:00 67 18 150/76 98 12/31/19 10:30 68 18 160/94 98 12/31/19 10:00 67 18 146/85 98 12/31/19 09:55 73 18 147/80 98 12/31/19 09:49 79 18 137/67 98 12/31/19 09:45 97.8 F 71 18 145/70 98 12/31/19 09:30 97.8 F 71 18 145/70 98 12/31/19 09:15 97.8 F 71 18 145/70 98 12/31/19 09:00 97.8 F 71 18 145/70 98 12/31/19 08:45 97.8 F 71 18 145/70 98 12/31/19 08:37 97.8 F 71 18 145/70 98 12/31/19 08:18 97.9 F 71 18 145/70 98 Intake and Output 12/31/19 12/31/19 12/31/19 06:59 14:59 22:59 Other: Weight 81.647 kg Results CBC & Chem 7: 12/31/19 08:28 12/31/19 08:28 Labs: Abnormal Lab Results - Last 24 Hours (Table) 12/31/19 12/31/19 12/31/19 Range/Units 08:19 08:28 08:28 Hct 38.8 L (39.0-53.0) % Plt Count 118 L (150-450) k/uL Neutrophils # 8.2 H (1.3-7.7) k/uL Lymphocytes # 0.5 L (1.0-4.8) k/uL Carbon Dioxide 19 L (22-30) mmol/L BUN 57 H (9-20) mg/dL Creatinine 1.98 H (0.66-1.25) mg/dL Glucose 140 H (74-99) mg/dL POC Glucose (mg/dL) 145 H (75-99) mg/dL Creatine Kinase 257 H (55-170) U/L Troponin I (0.000-0.034) ng/mL Urine Ketones (Negative) 12/31/19 12/31/19 Range/Units 08:28 11:00 Hct (39.0-53.0) % Plt Count (150-450) k/uL Neutrophils # (1.3-7.7) k/uL Lymphocytes # (1.0-4.8) k/uL Carbon Dioxide (22-30) mmol/L BUN (9-20) mg/dL Creatinine (0.66-1.25) mg/dL Glucose (74-99) mg/dL POC Glucose (mg/dL) (75-99) mg/dL Creatine Kinase (55-170) U/L Troponin I 0.219 H* (0.000-0.034) ng/mL Urine Ketones Trace H (Negative)
[2019-12-31] MEDS: ATORVASTATIN 80 MG TAB PO SCH (22:28)
[2019-12-31] MEDS: METOPROLOL TARTRATE 25 MG TAB PO SCH (22:28)
[2019-12-31] MEDS: SODIUM CHLORIDE 0.9% 1,000 ML IV SCH (22:32)
[2019-12-31] MEDS: CLOPIDOGREL 75 MG TAB PO SCH (22:32)
[2020-01-01 07:40] LABS: Calcium 9.2 mg/dL (8.4-10.2); Potassium 4.4 mmol/L (3.5-5.1)
[2020-01-01] MEDS: ENOXAPARIN 40 MG/0.4 ML SYRINGE SQ SCH (09:37)
[2020-01-01] MEDS: LISINOPRIL 5 MG TAB PO SCH (09:38)
[2020-01-01] MEDS: CLOPIDOGREL 75 MG TAB PO SCH (09:38)
[2020-01-01] MEDS: SERTRALINE 50 MG TAB PO SCH (09:38)
[2020-01-01] MEDS: METOPROLOL TARTRATE 25 MG TAB PO SCH ×2 (09:38→22:50)
[2020-01-01] MEDS: ASPIRIN 81 MG PO SCH (09:38)
--- NOTE | 2020-01-01 10:30 | P.CRDCN ---
History of Present Illness Consult date: 01/01/20 Requesting physician: Ronni Mendoza Reason for Consult (text): Abnormal troponin Chief complaint: Mental status changes, slurring of speech History of present illness: This is an 84-year-old gentleman who follows regularly with Dr. Ramirez in the office. He has a history of ischemic cardiomyopathy, by V AICD implant was performed in July 2019, history of inferior wall myocardial infarction with stenting of the mid and distal RCA as well as the PDA at that time, that was performed in November 2018, hypertension, hyperlipidemia. Patient was brought to the emergency room after being found on the floor at home, he's been noted to have some mental status changes and slurring of speech. Patient was found to have a hearing aid in the left laryngeal area for which she underwent removal y esterday. He had multiple visits to the emergency room yesterday. A troponin was drawn in the emergency room which came back to be mildly abnormal, this is the reason a cardiology consultation has been requested. EKG shows a paced rhythm with underlying normal sinus rhythm. Blood pressure 150/70, this morning 180/80, patient was mildly agitated at that time. Heart rate 64 this morning. White blood cell count 9.4, hemoglobin 13.0, hematocrit 38, platelets 118, sodium 140, potassium 4.4, chloride 112, CO2 21, BUN 42, creatinine 1.2, on arrival to BUN was 57 and creatinine was 1.9. Troponin 0.21, BNP 1120. Patient was seen and examined this morning by Dr. Ramirez, appears to be fairly alert, asking the sitter with assistance to go to the bathroom, he seemed to go to the bathroom okay with assistance. Breathing is stable, denies any chest discomfort. 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 Last Myocardial Infarction Date:: 12/09/18 History of Any Multi-Drug Resistant Organisms: None Reported Past Surgical History: Heart Catheterization With Stent, Orthopedic Surgery, Pacemaker Additional Past Surgical History / Comment(s): Right ankle fracture Past Anesthesia/Blood Transfusion Reactions: No Reported Reaction Date of Last Stent Placement:: 12/09/18 Type of Cardiac Device: AICD Device Placement Date:: 07/2019 Past Psychological History: No Psychological Hx Reported Smoking Status: Unknown if ever smoked Past Alcohol Use History: None Reported Past Drug Use History: None Reported - Past Family History Father History Unknown: Yes Mother History Unknown: Yes Medications and Allergies Home Medications Medication Instructions Recorded Confirmed Type Aspirin EC [Ecotrin Low Dose] 81 mg PO DAILY 11/29/18 12/31/19 History Cholecalciferol [Vitamin D3 (25 1,000 unit PO DAILY 11/29/18 12/31/19 History Mcg = 1000 Iu)] HYDROcodone/APAP 5-325MG [[place] 1 tab PO DAILY PRN 11/29/18 12/31/19 History 5-325] Loratadine [Claritin] 10 mg PO DAILY 11/29/18 12/31/19 History Atorvastatin [Lipitor] 80 mg PO HS #30 tab 12/12/18 12/31/19 Rx Lisinopril [Zestril] 5 mg PO DAILY #30 tab 12/12/18 12/31/19 Rx Nitroglycerin Sl Tabs [Nitrostat] 0.4 mg SUBLINGUAL Q5M PRN #25 tab 12/12/18 12/31/19 Rx Clopidogrel [Plavix] 75 mg PO DAILY 08/15/19 12/31/19 History Metoprolol Tartrate [Lopressor] 25 mg PO BID 12/31/19 12/31/19 History Sertraline [Zoloft] 50 mg PO DAILY 12/31/19 12/31/19 History Allergies Allergy/AdvReac Type Severity Reaction Status Date / Time No Known Allergies Allergy Verified 12/31/19 16:14 Physical Exam Vitals: Vital Signs Temp Pulse Pulse Resp BP BP Pulse Ox 01/01/20 08:00 98.1 F 55 L 16 132/57 100 01/01/20 04:00 98.8 F 64 18 183/84 100 01/01/20 00:00 99.4 F 112 H 18 151/70 92 L 12/31/19 20:00 99.3 F 100 16 151/72 97 12/31/19 17:01 97.9 F 68 16 140/63 98 12/31/19 13:30 97.8 F 70 18 131/82 98 12/31/19 13:20 97.7 F 70 18 134/84 98 12/31/19 13:10 97.7 F 65 18 144/74 98 12/31/19 13:08 67 18 168/78 98 12/31/19 13:03 67 18 132/70 100 12/31/19 12:57 67 18 132/70 98 12/31/19 12:56 69 18 168/78 98 12/31/19 12:49 69 18 132/70 97 12/31/19 12:45 68 18 134/70 98 12/31/19 12:42 68 18 134/72 98 12/31/19 12:40 68 18 132/72 100 12/31/19 12:37 67 18 132/70 98 12/31/19 12:30 67 18 132/70 98 12/31/19 12:25 96.7 F L 79 16 149/67 99 12/31/19 12:00 68 18 140/94 98 12/31/19 11:30 68 18 132/76 98 12/31/19 11:03 68 18 150/76 98 12/31/19 11:00 67 18 150/76 98 12/31/19 10:30 68 18 160/94 98 Intake and Output 12/31/19 01/01/20 01/01/20 22:59 06:59 14:59 Output Total 925 150 Balance -925 -150 Output: Urine 925 150 Other: Weight 74 kg PHYSICAL EXAMINATION: GENERAL: 84-year-old gentleman in no acute distress at the time of examinatio no carotid HEENT: Head is atraumatic, normocephalic. Pupils equal, round. Sclera anicteric. Conjunctiva are clear. Mucous membranes of the mouth are moist. Neck is supple. There is no elevated jugular venous pressure.] bruit is heard. HEART EXAMINATION: R S1 and S2 soft systolic murmur is heard at the apex CHEST EXAMINATION: Lungs are clear to auscultation and precussion. No chest wall tenderness is noted on palpation or with deep breathing. ABDOMEN: Soft, nontender. Bowel sounds are heard. No organomegaly noted. EXTREMITIES: 2+ peripheral pulses with no evidence of peripheral edema and no calf tenderness noted. NEUROLOGIC patient is awake, alert and oriented 2 . . Results 12/31/19 08:28 01/01/20 06:50 Comprehensive Metabolic Panel 01/01/20 Range/Units 06:50 Sodium 140 (137-145) mmol/L Potassium 4.4 (3.5-5.1) mmol/L Chloride 112 H (98-107) mmol/L Carbon Dioxide 21 L (22-30) mmol/L BUN 42 H (9-20) mg/dL Creatinine 1.26 H (0.66-1.25) mg/dL Glucose 105 H (74-99) mg/dL Calcium 9.2 (8.4-10.2) mg/dL Current Medications Generic Name Dose Route Start Last Admin Trade Name Freq PRN Reason Stop Dose Admin Acetaminophen 650 mg 12/31/19 11:28 Tylenol Tab PO Q6HR PRN Mild Pain or Fever > 100.5 Aspirin 81 mg 01/01/20 09:00 01/01/20 09:38 Aspirin PO 81 mg DAILY AMY Administration Atorvastatin Calcium 80 mg 12/31/19 21:00 12/31/19 22:28 Lipitor PO 80 mg HS AMY Administration Clopidogrel Bisulfate 75 mg 12/31/19 16:30 01/01/20 09:38 Plavix PO 75 mg DAILY AMY Administration Enoxaparin Sodium 40 mg 01/01/20 09:00 01/01/20 09:37 Lovenox SQ 40 mg DAILY AMY Administration Sodium Chloride 1,000 mls @ 75 mls/hr 12/31/19 16:45 12/31/19 22:32 Saline 0.9% IV 75 mls/hr .[id number] AMY Administration Lisinopril 5 mg 01/01/20 09:00 01/01/20 09:38 Zestril PO 5 mg DAILY MAY Administration Metoprolol Tartrate 25 mg 12/31/19 21:00 01/01/20 09:38 Lopressor PO 25 mg BID AMY Administration Naloxone HCl 0.2 mg 12/31/19 11:28 Narcan IV Q2M PRN Opioid Reversal Nitroglycerin 0.4 mg 12/31/19 16:20 Nitrostat SUBLINGUAL Q5M PRN Chest Pain Ondansetron HCl 4 mg 12/31/19 11:28 Zofran IVP Q8HR PRN Nausea And Vomiting Oxycodone/Acetaminophen 1 each 12/31/19 11:28 Percocet 5-325 PO Q4HR PRN Severe Pain Sertraline HCl 50 mg 01/01/20 09:00 01/01/20 09:38 Zoloft PO 50 mg DAILY AMY Administration Intake and Output 12/31/19 01/01/20 01/01/20 22:59 06:59 14:59 Output Total 925 150 Balance -925 -150 Output: Urine 925 150 Other: Weight 74 kg 12/31/19 08:28 01/01/20 06:50 EKG Interpretations (text) EKG on arrival here showed a paced rhythm with underlying normal sinus rhythm Assessment and Plan Plan: Assessment and plan #1 confusion, mental status changes #2 abnormal troponin, could be secondary to abnormal renal function on admission. Patient denies any chest discomfort in his breathing is stable. #3 ischemic cardiomyopathy #4 biventricular ICD implant in August of last year #5 inferior wall myocardial infarction in November 2018 with subsequent mid and distal RCA stenting and PDA stenting at that time #6 hypertension #7 acute on chronic kidney injury #8 hyperlipidemia Plan We will obtain an echocardiogram with Doppler study. Patient's blood pressure is noted to be mildly elevated this morning but we will continue to monitor, this could be secondary to agitation. If the blood pressure stabilizes and remains in the 140-150 range we will continue with his current medications. Troponin abnormality not felt to be secondary to acute coronary syndrome. [facility] er recommendations to follow. DNP note has been reviewed, I agree with a documented findings and plan of care. Patient was seen and examined.
[2020-01-01] MEDS: SODIUM CHLORIDE 0.9% 1,000 ML IV SCH (14:00)
--- NOTE | 2020-01-01 15:07 | P.CNNES ---
History of Present Illness Consult date: 01/01/20 Requesting physician: Amarjit Mckay Reason for Consult: Altered mental status History of Present Illness: Patient is a 84-year-old male with history of biventricular ICD, cardiomyopathy hypertension, chronic renal disease and hyperlipidemia, admitted because of confusion and mental status change. Patient not able to provide any history. According to EMS flow sheet, patient was brought to the hospital because of confusion, not his normal. Unknown if patient fell however items from the table were on floor. Family found patient laying on the floor, pants unbuttoned lowered on the waist. No obvious signs of trauma. Patient was oriented to person and place. No arm drift or facial droop. No stigmata of schafer virus. Patient's blood pressure on the scene was 144/75, pulse rate 75, respiration 18, saturation 96%. Blood sugar 144. Patient underwent CT head showed no acute intracranial abnormality. There is atrophy. Chronic white matter ischemic change. Mild mucosal disease. CT of the cervical spine showed no acute osseous lesion. Emphysematous change. Relatively severe degenerative change. Multilevel intervertebral foraminal narrowing. Chest x-ray showed no acute intrathoracic disease. EKG showed suspect unspecified pacemaker failure. Ventriclar paced rhythm. Patient had x- ray of the elbow, shoulder, pelvis, which did not reveal any fracture only arthritic changes. Patient's blood test shows WBC 9.4 hemoglobin 13.0 platelets are 118, PT/PTT normal, electrolytes normal, BUN 57 creatinine 1.98, which has improved to 42 and 1.26 respectively. LFTs normal. Troponin elevated 0.219, for which cardiology is on consult. CPK is mildly elevated. Ammonia normal. UA negative. Blood alcohol level negative. Schafer virus PCR negative. Patient had a 2-D echo on 12/09/2018, which revealed EF 30-35%. Basal inferior, mid inferior and apical inferior barth are hypokinetic. Patient apparently in the ER swallowed his hearing aid, which required endoscopic removal of the hearing aid, which was dislodged into the right pyriform sinus. At present patient has been trying to pull out his IV. A sitter was present. He sometimes becomes confused and combative. Patient apparently had lost his and a daughter in the last 12 months. His son is in [place], and his son-in-law lives next to him, who checks on him. Patient does take aspirin 81 mg, Plavix 75 mg, sertraline 50 mg metoprolol 25 mg twice a day. Lipitor 80 mg. Also on hydrocodone 5/325, daily when necessary. 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 Last Myocardial Infarction Date:: 12/09/18 History of Any Multi-Drug Resistant Organisms: None Reported Past Surgical History: Heart Catheterization With Stent, Orthopedic Surgery, Pacemaker Additional Past Surgical History / Comment(s): Right ankle fracture Past Anesthesia/Blood Transfusion Reactions: No Reported Reaction Date of Last Stent Placement:: 12/09/18 Type of Cardiac Device: AICD Device Placement Date:: 07/2019 Past Psychological History: No Psychological Hx Reported Smoking Status: Unknown if ever smoked Past Alcohol Use History: None Reported Past Drug Use History: None Reported - Past Family History Father History Unknown: Yes Mother History Unknown: Yes Medications and Allergies Home Medications Medication Instructions Recorded Confirmed Type Aspirin EC [Ecotrin Low Dose] 81 mg PO DAILY 11/29/18 12/31/19 History Cholecalciferol [Vitamin D3 (25 1,000 unit PO DAILY 11/29/18 12/31/19 History Mcg = 1000 Iu)] HYDROcodone/APAP 5-325MG [[place] 1 tab PO DAILY PRN 11/29/18 12/31/19 History 5-325] Loratadine [Claritin] 10 mg PO DAILY 11/29/18 12/31/19 History Atorvastatin [Lipitor] 80 mg PO HS #30 tab 12/12/18 12/31/19 Rx Lisinopril [Zestril] 5 mg PO DAILY #30 tab 12/12/18 12/31/19 Rx Nitroglycerin Sl Tabs [Nitrostat] 0.4 mg SUBLINGUAL Q5M PRN #25 tab 12/12/18 12/31/19 Rx Clopidogrel [Plavix] 75 mg PO DAILY 08/15/19 12/31/19 History Metoprolol Tartrate [Lopressor] 25 mg PO BID 12/31/19 12/31/19 History Sertraline [Zoloft] 50 mg PO DAILY 12/31/19 12/31/19 History Allergies Allergy/AdvReac Type Severity Reaction Status Date / Time No Known Allergies Allergy Verified 12/31/19 16:14 Physical Examination - Vital Signs Vital Signs: Vital Signs Temp Pulse Pulse Resp BP BP Pulse Ox 01/01/20 08:00 98.1 F 55 L 16 132/57 100 01/01/20 04:00 98.8 F 64 18 183/84 100 01/01/20 00:00 99.4 F 112 H 18 151/70 92 L 12/31/19 20:00 99.3 F 100 16 151/72 97 12/31/19 17:01 97.9 F 68 16 140/63 98 12/31/19 13:30 97.8 F 70 18 131/82 98 12/31/19 13:20 97.7 F 70 18 134/84 98 12/31/19 13:10 97.7 F 65 18 144/74 98 12/31/19 13:08 67 18 168/78 98 Intake and Output 12/31/19 01/01/20 01/01/20 22:59 06:59 14:59 Output Total 925 150 Balance -925 -150 Output: Urine 925 150 Other: Weight 74 kg On examination patient is an elderly male, laying comfortably in the bed. He is almost sleeping, snoring, mumbles a little on awakening. Could not tell me the name of the president, his date or the current year. His mouth is dry, evidence of some dried blood in the back of his throat. Pupils are round and reacting, visual quick and extraocular muscles could not be tested. Face appears symmetric. Patient did not protrude his tongue. He is very hard of hearing. Patient moves his arms and legs equally. The strength appears equal with no obvious focality although patient did not cooperate. Reflexes are symmetric and plantars are withdrawal bilaterally. Sensory functions could not be tested although he does move his extremities equally to plantar stimulation. Cerebellar functions could not be tested. Gait could not be tested. S1 and S2 audible. No bruit. Peripheral pulses present no edema. Abdomen soft nontender. Results - Laboratory Findings CBC and BMP: 12/31/19 08:28 01/01/20 06:50 Abnormal Lab Findings: Abnormal Labs 12/31/19 12/31/19 12/31/19 08:19 08:28 08:28 Hct 38.8 L Plt Count 118 L Neutrophils # 8.2 H Lymphocytes # 0.5 L Chloride Carbon Dioxide 19 L BUN 57 H Creatinine 1.98 H Glucose 140 H POC Glucose (mg/dL) 145 H Creatine Kinase 257 H Troponin I Urine Ketones 12/31/19 12/31/19 01/01/20 08:28 11:00 06:50 Hct Plt Count Neutrophils # Lymphocytes # Chloride 112 H Carbon Dioxide 21 L BUN 42 H Creatinine 1.26 H Glucose 105 H POC Glucose (mg/dL) Creatine Kinase Troponin I 0.219 H* Urine Ketones Trace H Assessment and Plan Assessment: * Altered mental status, likely due to encephalopathy due to dehydration, acute on chronic renal insufficiency * Probable underlying dementia. * Status post fall at home. Rule out syncope. * Status post oral ingestion of hearing aid in the ER, requiring endoscopic removal of the hearing aid. Plan: * Patient probably has delirium superimposed on underlying dementia. * Patient's renal functions have improved. * We will check B12, folate, TSH. * Carotid Doppler to rule out carotid stenosis. * EEG. * Continue dual antiplatelet medications and high-dose statins. * Suggest starting Aricept 5 mg daily for dementia.
--- NOTE | 2020-01-01 17:23 | US ---
EXAMINATION TYPE: US carotid duplex BILAT DATE OF EXAM: 01/01/2020 COMPARISON: NONE CLINICAL HISTORY: Fall versus syncope. AMS, syncope, fall EXAM MEASUREMENTS: RIGHT: Peak Systolic Velocity (PSV) cm/sec ----- Right CCA: 74.6 ----- Right ICA: 135.5 ----- Right ECA: 108.1 ICA/CCA ratio: 1.8 RIGHT: End Diastole cm/sec ----- Right CCA: 10.9 ----- Right ICA: 20.8 ----- Right ECA: 6.3 LEFT: Peak Systolic Velocity (PSV) cm/sec ----- Left CCA: 64.7 ----- Left ICA: 194.9 ----- Left ECA: 247.8 ICA/CCA ratio: 3.0 LEFT: End Diastole cm/sec ----- Left CCA: 7.6 ----- Left ICA: 32.3 ----- Left ECA: 0.0 VERTEBRALS (direction of flow): Right Vertebral: Antegrade Left Vertebral: Antegrade Rhythm: Normal IMPRESSION: Moderate plaque bilateral bifurcations. Increased velocities bilateral ICA's and left ECA Criteria for Assigning % of Stenosis / Diameter reduction (Estimation based on the indirect measurements of the internal carotid artery velocities (ICA PSV). 1. Normal (no stenosis)=ICA PSV < 125 cm/s: ratio < 2.0: ICA EDV<40 cm/s. 2. Less than 50% stenosis=ICA PSV < 125 cm/s: ratio < 2.0: ICA EDV<40 cm/s. 3. 50 to 69% stenosis=ICA PSV of 125 to 230 cm/s: ration 2.0 ? 4.0: ICA EDV 40-100 cm/s. 4. Greater than 70% stenosis to near occlusion= ICA PSV > 230 cm/s: ratio > 4.0: ICA EDV > 100 cm/s. 5. Near occlusion= ICA PSV velocities may be low or undetectable: variable ratio and ICA EDV. 6. Total occlusion=unable to detect flow.
--- NOTE | 2020-01-01 18:23 | P.PN ---
Progress Note - Text Progress Note Date: 01/01/20 Chief Complaint: Found on the floor This is a 84-year-old patient who lives alone. Being followed by Dr. Juan Hinton. Patient has a listed history of coronary artery disease with stent, hypertension, pacemaker. Patient does live alone. Patient was found at home on the floor. Apparently for last 3-4 days patient was somewhat confused. It is unknown as the patient fell the items from the table on the floor. Patient is found laying on the floor parents unbutton lower to the waist. No signs of trauma present. No localized neurological findings are present. Family denied patient having any recent cough throat showed nausea vomiting fevers or chills. Patient was moved to a cervical collar. In the ER and I spoke to the ER physician and the nurse patient had no focal neurological deficits. Was actually answering questions though little slow. Patient did become agitated to put his hearing aid and tried to swallow it. This was finally extracted from the mouth. When I saw the patient had been given some ketamine and was somewhat sedated to give any further history. He has some troponin leak and he was put on IV heparin for the same in the ER. Had denied any chest pain. Admitted with-possible acute delirium and metabolic encephalopathy multif actorial. Today-persistent rather lethargic. Sitting is the bedside. Does move about a bit. Difficult to get a history. Admitting review of systems could not be done as patient unable to answer qu estions Active Medications Acetaminophen (Tylenol Tab) 650 mg PO Q6HR PRN PRN Reason: Mild Pain or Fever > 100.5 Aspirin (Aspirin) 81 mg PO DAILY [facility] Last Admin: 01/01/20 09:38 Dose: 81 mg Documented by: Atorvastatin Calcium (Lipitor) 80 mg PO HS [facility] Last Admin: 12/31/19 22:28 Dose: 80 mg Documented by: Clopidogrel Bisulfate (Plavix) 75 mg PO DAILY [facility] Last Admin: 01/01/20 09:38 Dose: 75 mg Documented by: Enoxaparin Sodium (Lovenox) 40 mg SQ DAILY [facility] Last Admin: 01/01/20 09:37 Dose: 40 mg Documented by: Sodium Chloride (Saline 0.9%) 1,000 mls @ 75 mls/hr IV .[id number] [facility] Last Admin: 01/01/20 14:00 Dose: 75 mls/hr Documented by: Lisinopril (Zestril) 5 mg PO DAILY [facility] Last Admin: 01/01/20 09:38 Dose: 5 mg Documented by: Metoprolol Tartrate (Lopressor) 25 mg PO BID [facility] Last Admin: 01/01/20 09:38 Dose: 25 mg Documented by: Naloxone HCl (Narcan) 0.2 mg IV Q2M PRN PRN Reason: Opioid Reversal Nitroglycerin (Nitrostat) 0.4 mg SUBLINGUAL Q5M PRN PRN Reason: Chest Pain Ondansetron HCl (Zofran) 4 mg IVP Q8HR PRN PRN Reason: Nausea And Vomiting Oxycodone/Acetaminophen (Percocet 5-325) 1 each PO Q4HR PRN PRN Reason: Severe Pain Sertraline HCl (Zoloft) 50 mg PO DAILY [facility] Last Admin: 01/01/20 09:38 Dose: 50 mg Documented by: Physical examination: VITAL SIGNS: 97.9, 51, 16, 110/58, 97% on room air GENERAL: Laying in bed, somewhat delirious. EYES: Pupils equal. Conjunctiva normal. HEENT: External appearance of nose and ears normal, oral cavity, no teeth. NECK: JVD unable to assess; masses not palpable. HEART: First and second heart sounds are normal; no edema. LUNGS: Respiratory rate normal; decreased breath sounds. ABDOMEN: Soft, nontender, liver spleen not palpable, no masses palpable. PSYCH: Unable to assess patient somewhat sedatedl. NEUROLOGICAL: [Cranial nerves grossly intact; no facial asymmetry, moving limbs INVESTIGATIONS, reviewed in the clinical context: Potassium 4.4 bun 42 creatinine 1.26 Previous testing White count 9.4 hemoglobin 13 platelets 118 pressure 4.3 bun 57 creatinine 1.98 Creatinine kinase-to 57 Troponin I 0.219 Serum alcohol less than 10 COVID-19 PCR-not detected Soft tissue x-ray of the neck-, pelvis x-ray, shoulder x-ray, elbow x-ray, had cervical spine computed tomography scan-no evidence of fracture. Evidence of osteoarthritis at multiple locations. EKG tracing personally reviewed by me-ventricular paced rhythm Chest x-ray film personally reviewed by me-questionable chronic changes, some mild hyperinflation Labs from: September 2019 showed a bun of 27 and creatinine of 1.35 Assessment: -This is a patient who's been somewhat confused for last 3-4 days, found on the floor, as per the ER evaluation before he was sedated to was no focal symptoms. Patient moving all 4 limbs. Was given answering questions. Patient's story is more compatible with acute delirium and metabolic encephalopathy. -Biventricular ICD -Chronic congestive heart failure from systolic dysfunction EF 30-35%, from 2-D echo in November 2018 -DJD -Essential hypertension -Coronary artery disease with stent - acute kidney injury, likely prerenal, -Chronic kidney disease stage III likely nephrosclerosis with a baseline creatinine 1.35 -Metabolic acidosis from renal failure -Troponin leak due to hemodynamic mismatch. No clinical evidence of acute coronary syndrome Plan: We'll add sodium bicarbonate to his IV fluids. Change fluids to D5 0.45.. Repeat labs in the morning. Spoke to the nurse later in the evening.-Patient more awake and started to eat.
[2020-01-01] MEDS ORDERED: SODIUM CHLORIDE 0.9% 1,000 ML with SODIUM BICARB (1 MEQ/ML) 50 ML IV SCH ×2 (19:00)
[2020-01-01] MEDS: ATORVASTATIN 80 MG TAB PO SCH (22:50)
[2020-01-01] MEDS: DEXTROSE 5%-0.45% NACL 1,000 ML with SODIUM BICARB (1 MEQ/ML) 50 ML IV SCH ×2 (22:51)
[2020-01-02 02:26] LABS: Folate, Serum 3.6 ng/mL
[2020-01-02 06:15] LABS: Potassium 3.7 mmol/L (3.5-5.1)
[2020-01-02] MEDS: ASPIRIN 81 MG PO SCH (09:18)
[2020-01-02] MEDS: LISINOPRIL 5 MG TAB PO SCH (09:18)
[2020-01-02] MEDS: SERTRALINE 50 MG TAB PO SCH (09:18)
[2020-01-02] MEDS: METOPROLOL TARTRATE 25 MG TAB PO SCH ×2 (09:18→21:30)
[2020-01-02] MEDS: ENOXAPARIN 40 MG/0.4 ML SYRINGE SQ SCH (09:19)
[2020-01-02] MEDS: CLOPIDOGREL 75 MG TAB PO SCH (09:19)
[2020-01-02] MEDS: DEXTROSE 5%-0.45% NACL 1,000 ML with SODIUM BICARB (1 MEQ/ML) 50 ML IV SCH ×4 (10:57→23:31)
--- NOTE | 2020-01-02 16:29 | EEG ---
ELECTROENCEPHALOGRAM REPORT DATE OF SERVICE: 01/02/2020 PREAMBLE: This is an 84-year-old male who was found down on the floor. This study is performed to evaluate for any epileptiform activity. EEG FINDINGS: This is a routine 21 channel EEG recording in a patient utilizing 10-20 international system with bipolar and referential montages. The background consists of well- developed, but poorly regulated, mixed frequencies of 6-7 Hz theta with some frequent myogenic activity seen in bihemispheric region. Background does not seem to be reactive to eye opening or closing. Photic driving response was not seen. Different stages of sleep were not seen. No focal or generalized epileptiform activity was seen. IMPRESSION: This is an abnormal EEG due to the overall low voltage and mildly slow background activity. This is suggestive of generalized cerebral dysfunction, which can be related to encephalopathy of a metabolic, vascular or degenerative etiology. No epileptiform activity was seen. MMODL / IJN: [id number] / MTDD
--- NOTE | 2020-01-02 20:01 | P.PN ---
Subjective Progress Note Date: 01/02/20 Patient is laying comfortably in the bed. He is much more alert and awake, but very confused. Patient speaks with some slurring at times. No obvious aphasia. States he wants to go home. Objective - Vital Signs Vital signs: Vital Signs Temp 98 F 01/02/20 11:40 Pulse 61 01/02/20 11:40 Resp 18 01/02/20 11:40 BP 130/71 01/02/20 11:40 Pulse Ox 100 01/02/20 11:40 Intake & Output 01/02/20 01/02/20 01/03/20 06:59 18:59 06:59 Intake Total 1500 Output Total 360 Balance -360 1500 Weight 73.7 kg Intake: Intake, IV Titration 1500 Amount Dextrose 5%-0.45% NaCl 1, 1500 000 ml @ 75 mls/hr IV . Q14H AMY with Sodium Bicarb (1 Meq/ml) 50 ml Rx#:[id number] Output: Urine 360 Other: Voiding Method Indwelling Catheter Indwelling Catheter - Exam Patient knows his name and thinks it's either December or January and the year is . Could not tell what kind of building is it. When I asked if it was a hospital, or a hotel, or his home, he could not tell anything. He can name and repeat well. No aphasia or dysarthria. Strength appears normal. Did not cooperate well. Patient has positive palmomental reflex. - Labs CBC & Chem 7: 12/31/19 08:28 01/02/20 05:20 Labs: Abnormal Lab Results - Last 24 Hours (Table) 01/02/20 Range/Units 05:20 Chloride 110 H (98-107) mmol/L BUN 29 H (9-20) mg/dL Glucose 106 H (74-99) mg/dL Assessment and Plan Assessment: * Altered mental status, likely due to encephalopathy due to dehydration, acute on chronic renal insufficiency * Probable underlying dementia. * Status post fall at home. Rule out syncope. * Status post oral ingestion of hearing aid in the ER, requiring endoscopic removal of the hearing aid. * Folate deficiency. Plan: * Patient probably has delirium superimposed on underlying dementia. We will start Aricept 5 mg daily. * Patient's renal functions have further improved. * B12 340, folate 3.6, we'll start replacement, TSH normal at 0.93. * Carotid Doppler showed moderate plaque bilaterally bifurcations. Increased velocities bilateral ICAs and left ECA. No significant stenosis reported. Antegrade flow in both vertebral arteries. * EEG was abnormal due to overall low voltage and mildly slow background activity. This is suggestive of generalized cerebral dysfunction, which can be related to encephalopathy of a metabolic, vascular or degenerative etiology. No epileptiform activity was seen. * Continue dual antiplatelet medications and high-dose statins. * Neurologically clear otherwise.
[2020-01-02] MEDS ORDERED: CYANOCOBALAMIN 1,000 MCG/ML 1 ML VIAL IM ONE (20:02)
[2020-01-02] MEDS: ATORVASTATIN 80 MG TAB PO SCH (21:30)
[2020-01-02] MEDS: DONEPEZIL 5 MG TAB PO SCH (21:30)
[2020-01-02] MEDS: FOLIC ACID 1 MG TAB PO SCH (21:30)
--- NOTE | 2020-01-02 21:59 | P.PN ---
Progress Note - Text Progress Note Date: 01/02/20 Chief Complaint: Found on the floor This is a 84-year-old patient who lives alone. Being followed by Dr. Juan Hinton. Patient has a listed history of coronary artery disease with stent, hypertension, pacemaker. Patient does live alone. Patient was found at home on the floor. Apparently for last 3-4 days patient was somewhat confused. It is unknown as the patient fell the items from the table on the floor. Patient is found laying on the floor parents unbutton lower to the waist. No signs of trauma present. No localized neurological findings are present. Family denied patient having any recent cough throat showed nausea vomiting fevers or chills. Patient was moved to a cervical collar. In the ER and I spoke to the ER physician and the nurse patient had no focal neurological deficits. Was actually answering questions though little slow. Patient did become agitated to put his hearing aid and tried to swallow it. This was finally extracted from the mouth. When I saw the patient had been given some ketamine and was somewhat sedated to give any further history. He has some troponin leak and he was put on IV heparin for the same in the ER. Had denied any chest pain. Admitted with-possible acute delirium and metabolic encephalopathy multif actorial. Today-patient hardly eating. Confused at times. Admitting review of systems could not be done as patient unable to answer questions Active Medications Acetaminophen (Tylenol Tab) 650 mg PO Q6HR PRN PRN Reason: Mild Pain or Fever > 100.5 Aspirin (Aspirin) 81 mg PO DAILY [facility] Last Admin: 01/02/20 09:18 Dose: 81 mg Documented by: Atorvastatin Calcium (Lipitor) 80 mg PO [facility] Last Admin: 01/02/20 21:30 Dose: 80 mg Documented by: Clopidogrel Bisulfate (Plavix) 75 mg PO DAILY [facility] Last Admin: 01/02/20 09:19 Dose: 75 mg Documented by: Donepezil HCl (Aricept) 5 mg PO [facility] Last Admin: 01/02/20 21:30 Dose: 5 mg Documented by: Enoxaparin Sodium (Lovenox) 40 mg SQ DAILY [facility] Last Admin: 01/02/20 09:19 Dose: 40 mg Documented by: Folic Acid (Folic Acid) 1 mg PO DAILY [facility] Last Admin: 01/02/20 21:30 Dose: 1 mg Documented by: Sodium Bicarbonate 50 ml/ (Dextrose/Sodium Chloride) 1,050 mls @ 75 mls/hr IV .Q14H [facility] Last Admin: 01/02/20 10:57 Dose: Not Given Documented by: Lisinopril (Zestril) 5 mg PO DAILY [facility] Last Admin: 01/02/20 09:18 Dose: 5 mg Documented by: Metoprolol Tartrate (Lopressor) 25 mg PO BID [facility] Last Admin: 01/02/20 21:30 Dose: 25 mg Documented by: Naloxone HCl (Narcan) 0.2 mg IV Q2M PRN PRN Reason: Opioid Reversal Nitroglycerin (Nitrostat) 0.4 mg SUBLINGUAL Q5M PRN PRN Reason: Chest Pain Oxycodone/Acetaminophen (Percocet 5-325) 1 each PO Q4HR PRN PRN Reason: Severe Pain Sertraline HCl (Zoloft) 50 mg PO DAILY [facility] Last Admin: 01/02/20 09:18 Dose: 50 mg Documented by: Physical examination: VITAL SIGNS: 98, 61, 18, 130/71, 100% on room air GENERAL: Laying in bed, delirious. EYES: Pupils equal. Conjunctiva normal. HEENT: External appearance of nose and ears normal, oral cavity, no teeth. NECK: JVD unable to assess; masses not palpable. HEART: First and second heart sounds are normal; no edema. LUNGS: Respiratory rate normal; decreased breath sounds. ABDOMEN: Soft, nontender, liver spleen not palpable, no masses palpable. PSYCH: Unable to assess patient somewhat sedatedl. NEUROLOGICAL: [Cranial nerves grossly intact; no facial asymmetry, moving limbs INVESTIGATIONS, reviewed in the clinical context: Potassium 3.7 creatinine 1.01 Previous testing White count 9.4 hemoglobin 13 platelets 118 pressure 4.3 bun 57 creatinine 1.98 Creatinine kinase-to 57 Troponin I 0.219 Serum alcohol less than 10 COVID-19 PCR-not detected Soft tissue x-ray of the neck-, pelvis x-ray, shoulder x-ray, elbow x-ray, had cervical spine computed tomography scan-no evidence of fracture. Evidence of osteoarthritis at multiple locations. EKG tracing personally reviewed by me-ventricular paced rhythm Chest x-ray film personally reviewed by me-questionable chronic changes, some m ild hyperinflation Labs from: September 2019 showed a bun of 27 and creatinine of 1.35 Assessment: - acute delirium and metabolic encephalopathy. -Biventricular ICD -Chronic congestive heart failure from systolic dysfunction EF 30-35%, from 2-D echo in November 2018 -DJD -Essential hypertension -Coronary artery disease with stent - acute kidney injury, likely prerenal, -Chronic kidney disease stage III likely nephrosclerosis with a baseline creatinine 1.35 -Metabolic acidosis from renal failure -Troponin leak due to hemodynamic mismatch. No clinical evidence of acute coronary syndrome -COVID-19 PCR-ruled out Plan: Continue current medication treatment plan. We'll add 25 mg of Seroquel at night.
[2020-01-02] MEDS: QUEtiapine 25 MG TAB PO SCH (22:24)
[2020-01-03] MEDS: DEXTROSE 5%-0.45% NACL 1,000 ML with SODIUM BICARB (1 MEQ/ML) 50 ML IV SCH ×4 (05:04→19:59)
[2020-01-03] MEDS: ASPIRIN 81 MG PO SCH (08:42)
[2020-01-03] MEDS: SERTRALINE 50 MG TAB PO SCH (08:42)
[2020-01-03] MEDS: LISINOPRIL 5 MG TAB PO SCH (08:42)
[2020-01-03] MEDS: CLOPIDOGREL 75 MG TAB PO SCH (08:42)
[2020-01-03] MEDS: METOPROLOL TARTRATE 25 MG TAB PO SCH ×2 (08:43→20:28)
[2020-01-03] MEDS: FOLIC ACID 1 MG TAB PO SCH (08:43)
[2020-01-03] MEDS: ENOXAPARIN 40 MG/0.4 ML SYRINGE SQ SCH (08:43)
--- NOTE | 2020-01-03 11:00 | ECHOF ---
Referral Reason:abn trop MEASUREMENTS -------- HEIGHT: 195.6 cm WEIGHT: 73.5 kg BP: 135/78 IVSd: 1.7 cm (0.6 - 1.1) LVIDd: 3.5 cm (3.9 - 5.3) LVPWd: 1.3 cm (0.6 - 1.1) IVSs: 1.9 cm LVIDs: 2.4 cm LVPWs: 1.3 cm MV E Thaddeus: 0.47 m/s MV DecT: 336 ms MV A Thaddeus: 0.78 m/s MV E/A Ratio: 0.60 RAP: 5.00 mmHg RVSP: 14.29 mmHg FINDINGS -------- Paced rhythm. This was a technically difficult study with suboptimal views. Patient was not able to turn . There is moderate concentric left ventricular hypertrophy. Overall left ventricular systolic functi on is mild-moderately impaired with, an EF between 40 - 45 %. The RV was not well visualized. The left atrium was not well visualized. The right atrium was not well visualized. Electronic pacemaker lead seen in the right atrial cavity . The aortic valve was not well visualized. There is no evidence of aortic regurgitation. There is no evidence of aortic stenosis. The mitral valve was not well visualized. No mitral regurgitation. The tricuspid valve was not well visualized. The pulmonic valve was not well visualized. There is no pericardial effusion. 5.0mg of Lumason was utilized for enhancement of images CONCLUSIONS -------- 1. Paced rhythm. 2. This was a technically difficult study with suboptimal views. 3. Patient was not able to turn . 4. There is moderate concentric left ventricular hypertrophy. 5. The RV was not well visualized. 6. The left atrium was not well visualized. 7. The right atrium was not well visualized. 8. Electronic pacemaker lead seen in the right atrial cavity. 9. 5.0mg of Lumason was utilized for enhancement of images 10. The aortic valve was not well visualized. 11. There is no evidence of aortic regurgitation. 12. There is no evidence of aortic stenosis. 13. The mitral valve was not well visualized. 14. No mitral regurgitation. 15. The tricuspid valve was not well visualized. 16. The pulmonic valve was not well visualized. 17. There is no pericardial effusion. GEOLOGICAL SURVEY FIELD ASSISTANT: Sofia Rankin, [facility]
[2020-01-03] MEDS: DONEPEZIL 5 MG TAB PO SCH (20:28)
[2020-01-03] MEDS: ATORVASTATIN 80 MG TAB PO SCH (20:28)
[2020-01-03] MEDS: QUEtiapine 25 MG TAB PO SCH (20:29)
[2020-01-04] MEDS: LISINOPRIL 5 MG TAB PO SCH (08:11)
[2020-01-04] MEDS: METOPROLOL TARTRATE 25 MG TAB PO SCH ×2 (08:11→20:18)
[2020-01-04] MEDS: CLOPIDOGREL 75 MG TAB PO SCH (08:11)
[2020-01-04] MEDS: ASPIRIN 81 MG PO SCH (08:11)
[2020-01-04] MEDS: FOLIC ACID 1 MG TAB PO SCH (08:11)
[2020-01-04] MEDS: ENOXAPARIN 40 MG/0.4 ML SYRINGE SQ SCH (08:11)
--- NOTE | 2020-01-04 09:30 | P.PN ---
Progress Note - Text Progress Note Date: 01/03/20 Chief Complaint: Found on the floor This is a 84-year-old patient who lives alone. Being followed by Dr. Juan Hinton. Patient has a listed history of coronary artery disease with stent, hypertension, pacemaker. Patient does live alone. Patient was found at home on the floor. Apparently for last 3-4 days patient was somewhat confused. It is unknown as the patient fell the items from the table on the floor. Patient is found laying on the floor parents unbutton lower to the waist. No signs of trauma present. No localized neurological findings are present. Family denied patient having any recent cough throat showed nausea vomiting fevers or chills. Patient was moved to a cervical collar. In the ER and I spoke to the ER physician and the nurse patient had no focal neurological deficits. Was actually answering questions though little slow. Patient did become agitated to put his hearing aid and tried to swallow it. This was finally extracted from the mouth. When I saw the patient had been given some ketamine and was somewhat sedated to give any further history. He has some troponin leak and he was put on IV heparin for the same in the ER. Had denied any chest pain. Admitted with-possible acute delirium and metabolic encephalopathy multif actorial. Today-patient was started on Seroquel last night. Didn't sleep to only as of this morning. Has a sitter. Admitting review of systems could not be done as patient is very sleepy Current medications reviewed in today's electronic records Physical examination: VITAL SIGNS: 98.2, 65, 16, 122/52, 97% on room air GENERAL: Laying in bed, sleeping. EYES: Unable to assess HEENT: External appearance of nose and ears normal, oral cavity, no teeth. NECK: JVD unable to assess; masses not palpable. HEART: First and second heart sounds are normal; no edema. LUNGS: Respiratory rate normal; decreased breath sounds. ABDOMEN: Soft, nontender, liver spleen not palpable, no masses palpable. PSYCH: Unable to assess patient sleeping. NEUROLOGICAL: Unable to assess INVESTIGATIONS, reviewed in the clinical context: Potassium 3.7 creatinine 1.01 Previous testing White count 9.4 hemoglobin 13 platelets 118 pressure 4.3 bun 57 creatinine 1.98 Creatinine kinase-to 57 Troponin I 0.219 Serum alcohol less than 10 COVID-19 PCR-not detected Soft tissue x-ray of the neck-, pelvis x-ray, shoulder x-ray, elbow x-ray, had cervical spine computed tomography scan-no evidence of fracture. Evidence of osteoarthritis at multiple locations. EKG tracing personally reviewed by me-ventricular paced rhythm Chest x-ray film personally reviewed by me-questionable chronic changes, some mild hyperinflation Labs from: September 2019 showed a bun of 27 and creatinine of 1.35 Assessment: - acute delirium and metabolic encephalopathy. -Biventricular ICD -Chronic congestive heart failure from systolic dysfunction EF 30-35%, from 2-D echo in November 2018 -DJD -Essential hypertension -Coronary artery disease with stent - acute kidney injury, likely prerenal, -Chronic kidney disease stage III likely nephrosclerosis with a baseline creatinine 1.35 -Metabolic acidosis from renal failure -Troponin leak due to hemodynamic mismatch. No clinical evidence of acute coronary syndrome -COVID-19 PCR-ruled out Plan: We'll hold off Aricept for now given the anticipated etc. fax especially in this delirious state. We'll also DC the Zoloft. Spoke to the nurse at length. Care to maintain sleep hygiene. Follow from there. Repeat labs. Keep sitter
[2020-01-04] MEDS: DEXTROSE 5%-0.45% NACL 1,000 ML with SODIUM BICARB (1 MEQ/ML) 50 ML IV SCH ×4 (09:44→23:48)
--- NOTE | 2020-01-04 12:47 | P.PN ---
Subjective Progress Note Date: 01/03/20 Patient is laying comfortably in the bed. He is sleeping. Sitter was present. She states that he was awake for a few hours during the day. Not on any sedatives. Patient speaks with some slurring at times. Objective - Vital Signs Vital signs: Vital Signs Temp 97.6 F 01/03/20 13:00 Pulse 70 01/03/20 13:00 Resp 18 01/03/20 13:00 BP 128/66 01/03/20 13:00 Pulse Ox 95 01/03/20 13:00 Intake & Output 01/02/20 01/03/20 01/03/20 18:59 06:59 18:59 Intake Total 1500 900 Output Total 500 Balance 1500 400 Intake: Intake, IV Titration 1500 900 Amount Dextrose 5%-0.45% NaCl 1, 1500 900 000 ml @ 75 mls/hr IV . Q14H AMY with Sodium Bicarb (1 Meq/ml) 50 ml Rx#:[id number] Oral 0 Output: Urine 500 Other: Voiding Method Indwelling Catheter Indwelling Catheter Indwelling Catheter # Voids 1 # Bowel Movements 1 - Exam 01/03/2020: Patient very somnolent, laying still in the bed. On waking up, he appears somewhat irritable, did not want to be bothered, did not cooperate. The refore examination deferred. 01/02/2020: Patient knows his name and thinks it's either December or January and the year is . Could not tell what kind of building is it. When I asked if it was a hospital, or a hotel, or his home, he could not tell anything. He can name and repeat well. No aphasia or dysarthria. Strength appears normal. Did not cooperate well. Patient has positive palmomental reflex. - Labs CBC & Chem 7: 12/31/19 08:28 01/02/20 05:20 Assessment and Plan Assessment: * Altered mental status, likely due to encephalopathy due to dehydration, acute on chronic renal insufficiency * Probable underlying dementia. * Status post fall at home. Rule out syncope. * Elevated cardiac enzymes. * Status post oral ingestion of hearing aid in the ER, requiring endoscopic removal of the hearing aid. * Folate deficiency. Plan: * Patient probably has delirium superimposed on underlying dementia. Continue Aricept 5 mg daily. * Patient's renal functions have further improved. * B12 340, folate 3.6, continue folate replacement, TSH normal at 0.93. * Carotid Doppler showed moderate plaque bilaterally bifurcations. Increased velocities bilateral ICAs and left ECA. No significant stenosis reported. Antegrade flow in both vertebral arteries. * EEG was abnormal due to overall low voltage and mildly slow background activity. This is suggestive of generalized cerebral dysfunction, which can be related to encephalopathy of a metabolic, vascular or degenerative etiology. No epileptiform activity was seen. * Continue dual antiplatelet medications and high-dose statins. * Neurologically clear otherwise. Neurology will sign off. Please call neurology if any other concerns.
--- NOTE | 2020-01-04 15:56 | CDI ---
Documentation Clarification Form Date: 01/04/2020 03:13:46 PM From: Stephanie Khan RN CCDS Admit Date: 12/31/2019 11:28:00 AM Patient Name: Brice Tan Visit Number: [id number] Discharge Date: ATTENTION: The Clinical Documentation Specialists (CDI) and [facility] Coding Staff appreciate your assistance in clarifying documentation. Please respond to the clarification below the line at the bottom and electronically sign. The CDI & [facility] Coding staff will review the response and follow-up if needed. Please note: Queries are made part of the Legal Health Record. If you have any questions, please contact the author of this message via ITS. Dr. Ronni Mendoza Troponin Leak due to hemodynamic mismatch. Is documented in your Progress Note 01/02 History/Risk Factors: 84-year-old patient presented to the ED via EMS with worsening slurred speech and weakness. Medical History HTN, CAD with sent, CKD 3, and CHF Clinical Indicators: EKG 12/30 Suspect unspecified pacemaker failure. Ventricular paced rhythm Echo 01/02 Concentric left ventricular hypertrophy. Overall left ventricular systolic function is mild moderately impaired with, an EF between 40-45% Lab findings: 12/30 Troponin 0.219, CR 1.98 12/31 CR 1.26, 01/01 CR 1.01 Vital Signs: 12/30 - 145/70, 71, 97.9, 18, 98% room air Treatment: 12/30 Heparin Ivp x1, Heparin Iv Dcd 12/30, 0.9ns 1L Fluid bolus followed by 75cchr Consults: Cardiology 12/31 Abnormal troponin, could be secondary to abnormal renal function on admission. In your professional opinion, can you please clarify the clinical significance of the Troponin? Type 2 HI secondary to demand ischemia in the setting of Acute Renal Failure Type 2 HI secondary to demand ischemia in the setting of (please specify) Type 2 HI rule out Other, please specify Unable to determine (Last Revision: November 2017) Type II HI ruled out MTDD
--- NOTE | 2020-01-04 19:11 | P.PN ---
Progress Note - Text Progress Note Date: 01/04/20 Chief Complaint: Found on the floor This is a 84-year-old patient who lives alone. Being followed by Dr. Juan Hinton. Patient has a listed history of coronary artery disease with stent, hypertension, pacemaker. Patient does live alone. Patient was found at home on the floor. Apparently for last 3-4 days patient was somewhat confused. It is unknown as the patient fell the items from the table on the floor. Patient is found laying on the floor parents unbutton lower to the waist. No signs of trauma present. No localized neurological findings are present. Family denied patient having any recent cough throat showed nausea vomiting fevers or chills. Patient was moved to a cervical collar. In the ER and I spoke to the ER physician and the nurse patient had no focal neurological deficits. Was actually answering questions though little slow. Patient did become agitated to put his hearing aid and tried to swallow it. This was finally extracted from the mouth. When I saw the patient had been given some ketamine and was somewhat sedated to give any further history. He has some troponin leak and he was put on IV heparin for the same in the ER. Had denied any chest pain. Admitted with-possible acute delirium and metabolic encephalopathy multif actorial. Started on Seroquel. Today-slept much better last night. Has some breakfast this morning. Sitter at the bedside. Admitting review of systems could not be done as patient is sleepy Active Medications Acetaminophen (Tylenol Tab) 650 mg PO Q6HR PRN PRN Reason: Mild Pain or Fever > 100.5 Aspirin (Aspirin) 81 mg PO DAILY [facility] Last Admin: 01/04/20 08:11 Dose: 81 mg Documented by: Atorvastatin Calcium (Lipitor) 80 mg PO [facility] Last Admin: 01/03/20 20:28 Dose: 80 mg Documented by: Clopidogrel Bisulfate (Plavix) 75 mg PO DAILY [facility] Last Admin: 01/04/20 08:11 Dose: 75 mg Documented by: Donepezil HCl (Aricept) 5 mg PO [facility] Last Admin: 01/03/20 20:28 Dose: 5 mg Documented by: Enoxaparin Sodium (Lovenox) 40 mg SQ DAILY [facility] Last Admin: 01/04/20 08:11 Dose: 40 mg Documented by: Folic Acid (Folic Acid) 1 mg PO DAILY [facility] Last Admin: 01/04/20 08:11 Dose: 1 mg Documented by: Sodium Bicarbonate 50 ml/ (Dextrose/Sodium Chloride) 1,050 mls @ 75 mls/hr IV .Q14H [facility] Last Admin: 01/04/20 09:44 Dose: 75 mls/hr Documented by: Lisinopril (Zestril) 5 mg PO DAILY [facility] Last Admin: 01/04/20 08:11 Dose: 5 mg Documented by: Metoprolol Tartrate (Lopressor) 25 mg PO BID [facility] Last Admin: 01/04/20 08:11 Dose: 25 mg Documented by: Naloxone HCl (Narcan) 0.2 mg IV Q2M PRN PRN Reason: Opioid Reversal Nitroglycerin (Nitrostat) 0.4 mg SUBLINGUAL Q5M PRN PRN Reason: Chest Pain Oxycodone/Acetaminophen (Percocet 5-325) 1 each PO Q4HR PRN PRN Reason: Severe Pain Quetiapine Fumarate (Seroquel) 12.5 mg PO [facility] Physical examination: VITAL SIGNS: 97.9, 60, 17, 129/67, 98% on room air GENERAL: Propped up in bed, tired EYES: Unable to assess HEENT: External appearance of nose and ears normal, oral cavity, no teeth. NECK: JVD unable to assess; masses not palpable. HEART: First and second heart sounds are normal; no edema. LUNGS: Respiratory rate normal; decreased breath sounds. ABDOMEN: Soft, nontender, liver spleen not palpable, no masses palpable. PSYCH: Unable to assess patient tired NEUROLOGICAL: Just finished his breakfast. INVESTIGATIONS, reviewed in the clinical context: Potassium 3.7 creatinine 1.01 Previous testing White count 9.4 hemoglobin 13 platelets 118 pressure 4.3 bun 57 creatinine 1.98 Creatinine kinase-to 57 Troponin I 0.219 Serum alcohol less than 10 COVID-19 PCR-not detected Soft tissue x-ray of the neck-, pelvis x-ray, shoulder x-ray, elbow x-ray, had cervical spine computed tomography scan-no evidence of fracture. Evidence of osteoarthritis at multiple locations. EKG tracing personally reviewed by me-ventricular paced rhythm Chest x-ray film personally reviewed by me-questionable chronic changes, some mild hyperinflation Labs from: September 2019 showed a bun of 27 and creatinine of 1.35 Assessment: - acute delirium and metabolic encephalopathy.-Improving -Biventricular ICD -Chronic congestive heart failure from systolic dysfunction EF 30-35%, from 2-D echo in November 2018 -DJD -Essential hypertension -Coronary artery disease with stent - acute kidney injury, likely prerenal, -Chronic kidney disease stage III likely nephrosclerosis with a baseline creatinine 1.35 -Metabolic acidosis from renal failure -Troponin leak due to hemodynamic mismatch. No clinical evidence of acute coronary syndrome -COVID-19 PCR-ruled out Plan: Dose of Seroquel cut back to 12.5 mg by mouth daily at bedtime. Discussed with Dr. Cadet from neurology. Aricept being discontinued. Maintain sleep hygiene. Sitter was discontinued this morning. Overall prognosis guarded.
[2020-01-04] MEDS: ATORVASTATIN 80 MG TAB PO SCH (20:18)
[2020-01-04] MEDS ORDERED: QUEtiapine 25 MG TAB PO SCH (21:00)
[2020-01-05] MEDS: METOPROLOL TARTRATE 25 MG TAB PO SCH (08:53)
[2020-01-05] MEDS: FOLIC ACID 1 MG TAB PO SCH (08:53)
[2020-01-05] MEDS: ENOXAPARIN 40 MG/0.4 ML SYRINGE SQ SCH (08:54)
[2020-01-05] MEDS: CLOPIDOGREL 75 MG TAB PO SCH (08:54)
[2020-01-05] MEDS: ASPIRIN 81 MG PO SCH (08:54)
[2020-01-05] MEDS: LISINOPRIL 5 MG TAB PO SCH (08:54)
[2020-01-05 11:40] VITALS: BP 105/51; PULSE 52; RESP 17; TEMP 97.7
--- NOTE | 2020-01-05 14:10 | P.DS ---
Providers Date of admission: 12/31/19 11:28 Expected date of discharge: 01/05/20 Attending physician: Ronni Mendoza Consults: 12/31/19 11:26 Consult Physician Routine Consulting Provider: Drew Mendiola Consult Reason/Comments: altered mental status Do you want consulting provider notified?: Yes Primary care physician: [facility] Course: Chief Complaint: Found on the floor This is a 84-year-old patient who lives alone. Being followed by Dr. Juna Hinton. Patient has a listed history of coronary artery disease with stent, hypertension, pacemaker. Patient does live alone. Patient was found at home on the floor. Apparently for last 3-4 days patient was somewhat confused. It is unknown as the patient fell the items from the table on the floor. Patient is found laying on the floor parents unbutton lower to the waist. No signs of trauma present. No localized neurological findings are present. Family denied patient having any recent cough throat showed nausea vomiting fevers or chills. Patient was moved to a cervical collar. In the ER and I spoke to the ER physician and the nurse patient had no focal neurological deficits. Was actually answering questions though little slow. Patient did become agitated to put his hearing aid and tried to swallow it. This was finally extracted from the mouth. When I saw the patient had been given some ketamine and was somewhat sedated to give any further history. He has some troponin leak and he was put on IV heparin for the same in the ER. Had denied any chest pain. Admitted with-acute kidney injury, causing possible acute delirium and metabolic encephalopathy multifactorial. -responded well to IV fluids.creatinine came down from 1.98 down to 1.01. Today-up in a chair. Tired. Decreased appetite. Discussed with the clinical social work aide. We will go to ECF at [facility].prognosis guarded. Discussion and discharge planning more than 35 minutes consultation: Dr. Kendall Ramirez from cardiology Dr. Cadet from neurology Physical examination: VITAL SIGNS: 97.7, 52, 17, 105/51, 100% room air GENERAL: sitting upon a chair tired EYES: pupils equal conjunctiva normals HEENT: External appearance of nose and ears normal, oral cavity, no teeth. NECK: JVD unable to assess; masses not palpable. HEART: First and second heart sounds are normal; no edema. LUNGS: Respiratory rate normal; decreased breath sounds. ABDOMEN: Soft, nontender, liver spleen not palpable, no masses palpable. PSYCH:answer occasional questions NEUROLOGICAL: Just finished his breakfast. INVESTIGATIONS, reviewed in the clinical context: Potassium 3.7 creatinine 1.01 Previous testing White count 9.4 hemoglobin 13 platelets 118 pressure 4.3 bun 57 creatinine 1.98 Creatinine kinase-to 57 Troponin I 0.219 Serum alcohol less than 10 COVID-19 PCR-not detected Soft tissue x-ray of the neck-, pelvis x-ray, shoulder x-ray, elbow x-ray, had cervical spine computed tomography scan-no evidence of fracture. Evidence of osteoarthritis at multiple locations. EKG tracing personally reviewed by me-ventricular paced rhythm Chest x-ray film personally reviewed by me-questionable chronic changes, some mild hyperinflation Labs from: September 2019 showed a bun of 27 and creatinine of 1.35 Assessment: - acute delirium and metabolic encephalopathy.-from renal failure, POA -Biventricular ICD -Chronic congestive heart failure from systolic dysfunction EF 30-35%, from 2-D echo in November 2018 -DJD -Essential hypertension -Coronary artery disease with stent - acute kidney injury, likely prerenal,POA -Chronic kidney disease stage III likely nephrosclerosis -Metabolic acidosis from renal failure, POA -Troponin leak due to hemodynamic mismatch. No clinical evidence of acute coronary syndrome -COVID-19 PCR-ruled out disposition: ECF/[facility] CBC-BMP-3 days Patient Condition at Discharge: Stable Plan - Discharge Summary Discharge Rx Participant: Yes New Discharge Prescriptions: New QUEtiapine [SEROquel] 12.5 mg PO HS #3 tab Acetaminophen Tab [Tylenol] 650 mg PO Q6HR PRN tab PRN Reason: Mild Pain Or Fever > 100.5 Continue Aspirin EC [Ecotrin Low Dose] 81 mg PO DAILY Atorvastatin [Lipitor] 80 mg PO HS #30 tab Nitroglycerin Sl Tabs [Nitrostat] 0.4 mg SUBLINGUAL Q5M PRN #25 tab PRN Reason: Chest Pain Lisinopril [Zestril] 5 mg PO DAILY #30 tab Clopidogrel [Plavix] 75 mg PO DAILY Metoprolol Tartrate [Lopressor] 25 mg PO BID HYDROcodone/APAP 5-325MG [[place] 5-325] 1 tab PO DAILY PRN #3 tab PRN Reason: Pain Discontinued Cholecalciferol [Vitamin D3 (25 Mcg = 1000 Iu)] 1,000 unit PO DAILY Loratadine [Claritin] 10 mg PO DAILY Sertraline [Zoloft] 50 mg PO DAILY Discharge Medication List Aspirin EC [Ecotrin Low Dose] 81 mg PO DAILY 11/29/18 [History] Atorvastatin [Lipitor] 80 mg PO HS #30 tab 12/12/18 [Rx] Lisinopril [Zestril] 5 mg PO DAILY #30 tab 12/12/18 [Rx] Nitroglycerin Sl Tabs [Nitrostat] 0.4 mg SUBLINGUAL Q5M PRN #25 tab 12/12/18 [Rx] Clopidogrel [Plavix] 75 mg PO DAILY 08/15/19 [History] Metoprolol Tartrate [Lopressor] 25 mg PO BID 12/31/19 [History] Acetaminophen Tab [Tylenol] 650 mg PO Q6HR PRN tab 01/05/20 [Rx] HYDROcodone/APAP 5-325MG [[place] 5-325] 1 tab PO DAILY PRN #3 tab 01/05/20 [Rx] QUEtiapine [SEROquel] 12.5 mg PO HS #3 tab 01/05/20 [Rx] Follow up Appointment(s)/Referral(s): Juan Heaton MD [Primary Care Provider] - 1-2 days
[2020-01-05 14:30] VITALS: BMI 19.3
== END 2020-01-05 15:49 | DRG 682 ==
LOC: EC 08:12 → 3SCARD 11:28 → 5NMEDONC 01-02 09:45
PROVIDERS: ADMIT Hospitalist; ATTEND Hospitalist
DX: N17.9 Acute kidney failure, unspecified (principal); G93.41 Metabolic encephalopathy; E87.2 Acidosis; I13.0 Hypertensive heart and chronic kidney disease with heart failure and stage 1 through stage 4 chronic kidney disease, or unspecified chronic kidney disease; I50.22 Chronic systolic (congestive) heart failure; R47.01 Aphasia; E11.22 Type 2 diabetes mellitus with diabetic chronic kidney disease; E53.8 Deficiency of other specified B group vitamins; E78.5 Hyperlipidemia, unspecified; E86.0 Dehydration; F03.90 Unspecified dementia, unspecified severity, without behavioral disturbance, psychotic disturbance, mood disturbance, and anxiety; I25.10 Atherosclerotic heart disease of native coronary artery without angina pectoris; I25.2 Old myocardial infarction; I25.5 Ischemic cardiomyopathy; M19.90 Unspecified osteoarthritis, unspecified site; Z11.59 Encounter for screening for other viral diseases; N18.3 Chronic kidney disease, stage 3 (moderate); Z79.02 Long term (current) use of antithrombotics/antiplatelets; Z79.82 Long term (current) use of aspirin; Z79.899 Other long term (current) drug therapy; Z87.891 Personal history of nicotine dependence; Z95.5 Presence of coronary angioplasty implant and graft; Z95.810 Presence of automatic (implantable) cardiac defibrillator; Z97.4 Presence of external hearing-aid; Z60.2 Problems related to living alone
CPT/HCPCS: 36415; 70360; 70450; 71045; 72125; 72170; 80048; 80053; 80320; 81003; 82140; 82272; 82550; 82607; 82746; 83605; 83735; 83880; 84443; 84484; 85025; 85610; 85730; 87635; 93005; 93306; 93880; 95816